=== PATIENT | female | born 1975 | race African-American/Black ===

== ENCOUNTER 2018-05-22 17:04 | Inpatient (IN) | payer OTHER ==
[2018-05-22] VITALS: BP 124/90
[~2018-05-22] VITALS: Ht 160 cm; Wt 505.3 kg
[2018-05-22 20:00] VITALS: BP 133/99
[2018-05-22] MEDS ORDERED: ERGO500040 PO (21:06)
[2018-05-22] MEDS ORDERED: POTA-88 PO (21:06)
[2018-05-22] MEDS ORDERED: FOLI1TAB16 PO (21:06)
[2018-05-22] MEDS ORDERED: METO-295 PO (21:06)
[2018-05-22] MEDS ORDERED: HYDR4TAB57 PO (21:06)
[2018-05-22] MEDS ORDERED: LEVE500T9 PO (21:06)
[2018-05-22] MEDS ORDERED: MORP15TA PO (21:20)
[2018-05-22] MEDS ORDERED: Z GUARD REMEDY 2 OZ OINT TP PRN (21:30)
[2018-05-22] MEDS ORDERED: HYDROMORPHONE HCL 4 MG PO PRN (21:30)
[2018-05-22] MEDS ORDERED: MAGNESIUM HYDROXIDE 30 ML UDC PO PRN (21:30)
[2018-05-22] MEDS ORDERED: MAG HYDROX/AL HYDROX/SIMETH 30 ML UDC PO PRN (21:30)
--- NOTE | 2018-05-22 21:30 | NUR ---
THERMODYNAMICS PROFESSOR NOTES RECEIVED PT ON STRETCHER FROM EMT. PT AMBULATORY. ON NASAL CANNULA 2LPM SATURATING GOOD NO RESPIRATORY DISTRESS NOTED. ON TELE MONITOR SR. IV ACCESS SEJAL CATH LEFT CHEST WALL, PATENT AND INTACT. REFUSED SKIN ASSESSMENT. H/P ASSESSMENT DONE. HEAD OF BED ELEVATED. SIDE RAILS UP. CALL LIGHT WITHIN REACH. BED ALARM ON. WILL CONTINUE TO MONITOR PT CLOSELY.
[2018-05-22] MEDS: HYDROCODONE/APAP 5/325MG 1 EACH TABLET PO PRN (22:08)
[2018-05-22 22:50] LABS: BASOPHILS # (AUTO) 0.1 /CMM (0.0-0.2); BASOPHILS % (AUTO) 0.9 % (0.0-2.0); EOSINOPHILS % (AUTO) 1.5 % (0.0-6.0); HEMATOCRIT 33 % (33-45); HEMOGLOBIN 10.9 g/dL (11.5-14.8); LYMPHOCYTES # (AUTO) 0.8 /CMM (0.8-4.8); LYMPHOCYTES % (AUTO) 8.9 % (20.0-44.0); MEAN CORPUSCULAR HGB CONC 33 g/dl (31.0-36.0); MEAN CORPUSCULAR VOLUME 84 fL (82-100); MONOCYTES # (AUTO) 0.7 /CMM (0.1-1.30); MONOCYTES % (AUTO) 7.3 % (2.0-12.0); NEUTROPHILS # (AUTO) 7.3 /CMM (1.8-8.9); NEUTROPHILS % (AUTO) 81.4 % (43.0-81.0); PLATELET COUNT (AUTO) 454 /CMM (150-450); RED BLOOD CELL COUNT(AUTO) 3.95 MIL/uL (4.0-5.2)
[2018-05-22] MEDS ORDERED: Medication Not On Formulary EA (Levetiracetam (Keppra) 750 MG) PO SCH (23:00)
[2018-05-22] MEDS: LEVETIRACETAM (250 MG) 250 MG TABLET PO SCH (23:05)
[2018-05-22] MEDS ORDERED: LEVOFLOXACIN 750 MG /D5W 150ML 150 ML IV ONE (23:06)
[2018-05-22] MEDS: HYDROMORPHONE 1 MG/1 ML DISP.SYRIN IV PRN (23:07)
[2018-05-22 23:19] LABS: ALBUMIN 2.7 g/dL (3.4-5.0); BILIRUBIN,TOTAL 0.2 mg/dL (0.2-1.0); CALCIUM, SERUM 8.8 mg/dL (8.5-10.1); CREATININE 0.7 mg/dL (0.6-1.3); MAGNESIUM 1.6 mg/dL (1.8-2.4); PHOSPHORUS 3.3 mg/dL (2.5-4.9); POTASSIUM 3.8 mmol/L (3.5-5.1)
[2018-05-22 23:21] LABS: THYROID STIMULATING HORMONE 1.079 uIU/mL (0.358-3.74)
[2018-05-22] MEDS ORDERED: LEVOFLOXACIN 750 MG /D5W 150ML 750 MG in PREMIX 1 EA IV ONE (23:30)
[2018-05-23] VITALS (7 sets, daily range): BP systolic 91–124; BP diastolic 57–90
[2018-05-23] MEDS: HYDROMORPHONE 1 MG/1 ML DISP.SYRIN IV PRN ×4 (02:08→11:21)
--- NOTE | 2018-05-23 04:20 | NUR ---
COATING MACHINE HELPER NOTES PT REFUSES PNA AND FLUE VACCINE OF NOW. PER PT SHE WANTS TO TALK TO THE DRAntonia REGARDING SIDE EFFECTS AND BENEFITS SINCE SHE IS A CANCER PT. WILL F/U WITH THE
--- NOTE | 2018-05-23 06:40 | NUR ---
HORTICULTURAL THERAPIST NOTES NO ACUTE CHANGES NOTED DURING THE SHIFT. PROVIDED COMFORT AND SAFETY. DUE MEDS GIVEN. WILL ENDORSE TO THE AM NURSE FOR CONTINUITY OF CARE.
[2018-05-23 07:01] LABS: APPEARANCE,URINE CLEAR (CLEAR); BILIRUBIN,URINE NEGATIVE (NEGATIVE); BLOOD, URINE TRACE Ery/uL (NEGATIVE); COLOR,URINE YELLOW (YELLOW); KETONES,URINE TRACE (NEGATIVE); LEUKOCYTE ESTERASE ,URINE NEGATIVE (NEGATIVE); NITRITE, URINE NEGATIVE (NEGATIVE); PROTEIN,URINE 1+ mg/dl (NEGATIVE); UGLUCOSE NEGATIVE (NEGATIVE); UROBILINOGEN,URINE 0.2 EU/dL (0.2)
[2018-05-23 07:10] LABS: BACTERIA,URINE Rare /HPF (None Seen); SQUAMOUS EPITHELIAL CELL,UR Few /HPF (None Seen); WBC,URINE 0-2 /HPF (0-3)
[2018-05-23 07:28] LABS: BASOPHILS % (AUTO) 0.6 % (0.0-2.0); HEMATOCRIT 33 % (33-45); HEMOGLOBIN 10.9 g/dL (11.5-14.8); LYMPHOCYTES # (AUTO) 0.8 /CMM (0.8-4.8); LYMPHOCYTES % (AUTO) 10.4 % (20.0-44.0); MEAN CORPUSCULAR HGB CONC 33 g/dl (31.0-36.0); MEAN CORPUSCULAR VOLUME 83 fL (82-100); MONOCYTES # (AUTO) 0.8 /CMM (0.1-1.30); MONOCYTES % (AUTO) 10.1 % (2.0-12.0); NEUTROPHILS % (AUTO) 76.9 % (43.0-81.0); PLATELET COUNT (AUTO) 461 /CMM (150-450); RED BLOOD CELL COUNT(AUTO) 4.02 MIL/uL (4.0-5.2); WHITE BLOOD COUNT (AUTO) 7.8 K/uL (4.3-11.0)
[2018-05-23 07:46] LABS: CALCIUM, SERUM 8.8 mg/dL (8.5-10.1); CREATININE 0.6 mg/dL (0.6-1.3); POTASSIUM 3.8 mmol/L (3.5-5.1)
[2018-05-23] MEDS: PANTOPRAZOLE 40 MG VIAL IV SCH (08:18)
[2018-05-23] MEDS: LEVETIRACETAM (250 MG) 250 MG TABLET PO SCH ×2 (08:19→17:00)
[2018-05-23] MEDS: FOLIC ACID 1 MG TABLET PO SCH (08:19)
[2018-05-23] MEDS: METOCLOPRAMIDE HCL 10 MG TABLET PO SCH ×3 (08:19→17:00)
[2018-05-23] MEDS: MORPHINE SULFATE IR 15 MG TABLET PO SCH ×2 (08:19→17:01)
[2018-05-23] MEDS ORDERED: Medication Not On Formulary EA (Levetiracetam (Keppra) 750 MG) PO SCH (09:00)
--- NOTE | 2018-05-23 13:49 | NUR ---
U/S GUIDED THORACENTESIS TO BE DONE ON FRI., 05/25/2018. TOUR DRIVER RADIOLOGIST DR. RUCKER WAS CONTACTED REGARDING PROCEDURE AND MICHAEL FLORES TALKED TO ORDERING PHYSICIAN WHO MENTIONED IT WAS OK TO BE DONE THEN. PATIENT IS IN NO DISTRESS.
[2018-05-23] MEDS: ONDANSETRON HCL/PF 4 MG/2 ML VIAL IVP PRN ×2 (14:16→22:18)
[2018-05-23] MEDS: HYDROMORPHONE INJ 2 MG/ML DISP.SYRIN IV PRN ×4 (14:17→23:17)
--- NOTE | 2018-05-23 19:10 | NUR ---
GROOMING ASSISTANT OPENING NOTES PATIENT RECEIVED IN BED, WATCHING TV. ALERT, ORIENTED X 4. BREATHING EVEN AND UNLABORED. ON O2 AT 2LPM VIA NC. PATIENT ABLE TO VERBALIZE NEEDS. ON TELE MONITOR, SINUS RHYTHM 85. SAFETY MEASURES IN PLACE; CALL PARRA WITHIN REACH, BED IN LOW, LOCKED POSITION. PATIENT STABLE ENDORSED BY THE MORNING RN. WILL CONTINUE TO MONITOR ACCORDINGLY
--- NOTE | 2018-05-23 20:00 | NUR ---
RECEPTION MANAGER NOTES PATIENT TRANSFERRED TO ROOM 108
--- NOTE | 2018-05-23 20:20 | NUR ---
SPREADER BOX OPERATOR NOTES PATIENT C/O PAIN IN CHEST AND BACK, 12/12. DILAUDID 1MG GIVEN ORDERED. PATIENT STATED DILAUDID IS WHAT HELPS HER BEST WITH THE PAIN. DILAUDID WASTED WITH ANOTHER RN
[2018-05-23] MEDS: LEVOFLOXACIN 750 MG /D5W 150ML 750 MG in PREMIX 1 EA IV SCH (20:47)
--- NOTE | 2018-05-23 22:20 | NUR ---
television audio engineer notes Patient c/o nausea. Zofran 4mg given as ordered
--- NOTE | 2018-05-23 23:20 | NUR ---
DITCHER NOTES PATIENT C/O PAIN ON BACK AND CHEST, NON- RADIATING, 12/12. DILAUDID 1MG GIVEN ORDERED; 0.5ML WASTED WITH ANOTHER RN
[2018-05-24] VITALS: BP 95/62
[2018-05-24] MEDS: diphenhydrAMINE HCL 25 MG CAPSULE PO PRN ×5 (00:26→20:24)
--- NOTE | 2018-05-24 00:28 | NUR ---
BI ARCHITECT NOTES PATIENT C/O OF ITCHINESS ON AREAS WHERE LEADS OF TELE BOX AND TAPE ARE. STATED THAT SHE NOTICED THE ITCHING SINCE SHE CAME HERE BUT JUST THOUGHT THAT WHEN THE LEADS OR TAPE ARE CHANGED, IT WILL GO AWAY. NOW, SHE SAID THAT IT BOTHERS HER. ALSO STATED THAT IN ANOTHER HOSPITAL WHEN SHE WAS STARTING TO ITCH DUE TO THE IV TAPE, SHE'S HAD BENADRYL. TRE LARRY RADIO REPAIRMAN MADE AWARE. BENADRYL 25MG PO Q6H FOR ITCHINESS ORDERED- CARRIED OUT.
[2018-05-24] MEDS ORDERED: diphenhydrAMINE HCL ELIX 25 MG/10 ML UDC PO PRN ×2 (00:30→11:00)
[2018-05-24] MEDS: HYDROMORPHONE INJ 2 MG/ML DISP.SYRIN IV PRN ×7 (02:19→21:40)
--- NOTE | 2018-05-24 02:20 | NUR ---
BRAKE LINING CURER NOTES PATIENT C/O PAIN ON BACK AND CHEST, NON- RADIATING, 12/12. DILAUDID 1MG GIVEN ORDERED; 0.5ML WASTED WITH ANOTHER NURSE
[2018-05-24 04:00] VITALS: BP 94/61
--- NOTE | 2018-05-24 05:23 | NUR ---
CHILDREN TEACHER NOTES PATIENT C/O PAIN ON BACK AND CHEST, NON- RADIATING, 12/12. DILAUDID 1MG GIVEN ORDERED; 0.5ML WASTED WITH ANOTHER NURSE
--- NOTE | 2018-05-24 06:43 | NUR ---
NIB ADJUSTER CLOSING NOTES PATIENT IN BED, ALERT, ORIENTED X 4. BREATHING EVEN AND UNLABORED. NOT IN ANY DISTRESS. NO COMPLAINTS OF PAIN OR DISCOMFORT OF THIS TIME. TELE MONITOR IN PLACE, SINUS RHYTHM 96. ALL NEEDS ATTENDED TO. ALL DUE MEDICATIONS GIVEN ORDERED. CALL PARRA WITHIN REACH. BED IN LOW, LOCKED POSITION. WILL ENDORSE DESTINI TO ONCOMING NURSE
--- NOTE | 2018-05-24 07:30 | NUR ---
RN OPENING NOTE: RECEIVED PATIENT IN BED, AWAKE, ALERT AND ABLE TO MAKE HER NEEDS KNOWN. RESPIRATION EVEN AND UNLABORED SATURATING 99% WITH O2 2L/MIN VIA NC. PAIN WAS BEING MANAGED WITH DILAUDID IV AND MORPHINE IR PER MD ORDER. ON LOAN DOCUMENTS CLOSER SR HR 78. (L) CHEST WALL NOTED WITH PORT-A-CATH WITH DRY DRESSING. HOB ELEVATED. SEATED UPRIGHT ON THE BED. BED LOCKED AT ALL TIMES AND ON LOWEST POSITION. CALL LIGHT WITHIN REACH. NEEDS ANTICIPATED.
[2018-05-24 08:00] VITALS: BP 91/65
[2018-05-24 08:01] LABS: BASOPHILS % (AUTO) 0.5 % (0.0-2.0); EOSINOPHILS % (AUTO) 1.7 % (0.0-6.0); HEMATOCRIT 32 % (33-45); HEMOGLOBIN 10.4 g/dL (11.5-14.8); LYMPHOCYTES # (AUTO) 1.1 /CMM (0.8-4.8); MEAN CORPUSCULAR HGB CONC 33 g/dl (31.0-36.0); MEAN CORPUSCULAR VOLUME 84 fL (82-100); MONOCYTES # (AUTO) 0.8 /CMM (0.1-1.30); MONOCYTES % (AUTO) 9.3 % (2.0-12.0); NEUTROPHILS # (AUTO) 6.6 /CMM (1.8-8.9); NEUTROPHILS % (AUTO) 75.5 % (43.0-81.0); PLATELET COUNT (AUTO) 483 /CMM (150-450); RED BLOOD CELL COUNT(AUTO) 3.77 MIL/uL (4.0-5.2); WHITE BLOOD COUNT (AUTO) 8.8 K/uL (4.3-11.0)
[2018-05-24] MEDS: LEVETIRACETAM (250 MG) 250 MG TABLET PO SCH ×2 (08:08→16:15)
[2018-05-24] MEDS: PANTOPRAZOLE 40 MG VIAL IV SCH (08:08)
[2018-05-24] MEDS: FOLIC ACID 1 MG TABLET PO SCH (08:08)
[2018-05-24] MEDS: METOCLOPRAMIDE HCL 10 MG TABLET PO SCH ×3 (08:08→16:15)
[2018-05-24 08:09] LABS: CALCIUM, SERUM 8.8 mg/dL (8.5-10.1); CREATININE 0.8 mg/dL (0.6-1.3); POTASSIUM 3.7 mmol/L (3.5-5.1)
[2018-05-24] MEDS: MORPHINE SULFATE IR 15 MG TABLET PO SCH ×2 (08:14→17:02)
[2018-05-24 08:33] LABS: THYROID STIMULATING HORMONE 2.62 uIU/mL (0.358-3.74)
--- NOTE | 2018-05-24 08:52 | NUR ---
TEL Nurse , c/o itching , patient requsted to increased to benadry 50mg q6hrs instead of 25mg left message to re; above waiting for returning call back
[2018-05-24 12:00] VITALS: BP 106/66
[2018-05-24 16:00] VITALS: BP 96/56
[2018-05-24] MEDS: FERROUS SULFATE (325 MG) 325 MG/TAB TABLET PO SCH (16:15)
[2018-05-24] MEDS: ONDANSETRON HCL/PF 4 MG/2 ML VIAL IVP PRN (16:21)
[2018-05-24] MEDS ORDERED: predniSONE 20 MG TABLET ONE (16:22)
[2018-05-24] MEDS ORDERED: IPRATROPIUM NEB FS 0.5 MG/2.5 ML AMPUL.NEB ONE (16:22)
[2018-05-24] MEDS ORDERED: ALBUTEROL FS 2.5 MG/3 ML VIAL.NEB ONE (16:22)
--- NOTE | 2018-05-24 19:55 | NUR ---
RN CLOSING NOTE: PATIENT ON STABLE CONDITION AND PAIN WAS WELL MANAGED WITH HER CURRENT PAIN MEDICATIONS. BEDSIDE REPORT GIVEN TO PM SHIFT NURSE FOR CONTINUITY OF CARE.
[2018-05-24 20:00] VITALS: BP 98/57
--- NOTE | 2018-05-24 20:00 | NUR ---
FLEET DIRECTOR INITIAL NOTES PATIENT IN BED, ALERT, ORIENTED X 4, BREATHING EVEN AND UNLABORED NO SOB/ACUTE DISTRESS NOTED ON 2LPM VIA NC SATURATING WELL, NO COMPLAINTS OF PAIN OR DISCOMFORT OF THIS TIME, TELE MONITOR IN PLACE, SINUS RHYTHM 90S, LCW PERM CATH PATENT AND INTACT, ALL NEEDS ATTENDED, CALL PARRA WITHIN REACH, BED IN LOW AND LOCKED POSITION, WILL CONTINUE TO MONITOR CLOSELY
[2018-05-24] MEDS: LEVOFLOXACIN 750 MG /D5W 150ML 750 MG in PREMIX 1 EA IV SCH (20:25)
--- NOTE | 2018-05-24 20:30 | NUR ---
MANAGER MONITORING NOTES, PATIENT C/O ITCHING NOT RELIVED BY BENADRYL 25MG, PAGED KENDY REED EARLY LEARNING TEACHER AT THIS TIME, AWAITING FOR CALL BACK.
--- NOTE | 2018-05-24 20:55 | NUR ---
2054 BRIANNA LARRY CALLED BACK AND NOTIFIED HIM OF PATIENT'S C/O ITCHING NOT RELIEVED BY BENADRYL WITH ORDER TO GIVE ANOTHER DOSE OF 25MG OF BENADRYL NOW. ORDER NOTED AND CARRIED OUT.
[2018-05-24] MEDS ORDERED: diphenhydrAMINE HCL 25 MG CAPSULE PO ONE (21:00)
[2018-05-25] VITALS (7 sets, daily range): BP systolic 95–135; BP diastolic 57–76
[2018-05-25] MEDS: HYDROMORPHONE INJ 2 MG/ML DISP.SYRIN IV PRN ×8 (00:39→22:24)
[2018-05-25] MEDS: diphenhydrAMINE HCL 25 MG CAPSULE PO PRN ×2 (02:48→07:01)
[2018-05-25] MEDS: ONDANSETRON HCL/PF 4 MG/2 ML VIAL IVP PRN (05:53)
--- NOTE | 2018-05-25 06:30 | NUR ---
BEER COIL CLEANER CLOSING NOTES, PATIENT IN BED, SLEEPING AT THIS TIME, BREATHING EVEN AND UNLABORED NO SOB/ACUTE DISTRESS NOTED ON 2LPM VIA NC SATURATING WELL, TELE MONITOR IN PLACE, LCW PERM CATH PATENT AND INTACT, ALL NEEDS ATTENDED, CALL PARRA WITHIN REACH, BED IN LOW AND LOCKED POSITION, NO SIGNIFICANT CHANGE IN CONDITION THROUGHOUT THE NIGHT, ON PAIN MANAGEMENT, WILL ENDORSE CONTINUITY OF CARE TO ONCOMING NURSE.
--- NOTE | 2018-05-25 07:45 | NUR ---
RN OPENING NOTE: RECEIVED PATIENT IN BED, AWAKE, ALERT AND ABLE TO MAKE HER NEEDS KNOWN. RESPIRATION EVEN AND UNLABORED SATURATING 96% WITH O2 2L/MIN VIA NC. PAIN WAS BEING MANAGED WITH DILAUDID IV AND MORPHINE IR PER MD ORDER. ON YARD CRANE OPERATOR ST HR 101. (L) CHEST WALL NOTED WITH PORT-A-CATH WITH DRY DRESSING. HOB ELEVATED. PATIENT WAS SLIGHTLY LEANING ON THE (L) SIDE OF THE BED. BED LOCKED AT ALL TIMES AND ON LOWEST POSITION. CALL LIGHT WITHIN REACH. NEEDS ANTICIPATED. REMINDED PATIENT ABOUT THE THORACENTESIS PROCEDURE THAT WILL BE DONE ANYTIME TODAY. PATIENT UNDERSTOOD.
[2018-05-25 08:16] LABS: BASOPHILS # (AUTO) 0.1 /CMM (0.0-0.2); BASOPHILS % (AUTO) 0.6 % (0.0-2.0); EOSINOPHILS % (AUTO) 1.5 % (0.0-6.0); HEMATOCRIT 32 % (33-45); HEMOGLOBIN 10.3 g/dL (11.5-14.8); LYMPHOCYTES # (AUTO) 0.7 /CMM (0.8-4.8); LYMPHOCYTES % (AUTO) 5.9 % (20.0-44.0); MEAN CORPUSCULAR HGB CONC 33 g/dl (31.0-36.0); MEAN CORPUSCULAR VOLUME 83 fL (82-100); MONOCYTES # (AUTO) 0.9 /CMM (0.1-1.30); MONOCYTES % (AUTO) 8.2 % (2.0-12.0); NEUTROPHILS # (AUTO) 9.7 /CMM (1.8-8.9); NEUTROPHILS % (AUTO) 83.8 % (43.0-81.0); PLATELET COUNT (AUTO) 455 /CMM (150-450); RED BLOOD CELL COUNT(AUTO) 3.79 MIL/uL (4.0-5.2); WHITE BLOOD COUNT (AUTO) 11.5 K/uL (4.3-11.0)
[2018-05-25] MEDS: FERROUS SULFATE (325 MG) 325 MG/TAB TABLET PO SCH ×2 (08:20→16:05)
[2018-05-25] MEDS: LEVETIRACETAM (250 MG) 250 MG TABLET PO SCH ×2 (08:20→16:05)
[2018-05-25] MEDS: PANTOPRAZOLE 40 MG VIAL IV SCH (08:20)
[2018-05-25] MEDS: FOLIC ACID 1 MG TABLET PO SCH (08:20)
[2018-05-25] MEDS: METOCLOPRAMIDE HCL 10 MG TABLET PO SCH ×3 (08:21→16:06)
[2018-05-25] MEDS: MORPHINE SULFATE IR 15 MG TABLET PO SCH ×2 (08:21→17:24)
[2018-05-25 08:27] LABS: CALCIUM, SERUM 9.2 mg/dL (8.5-10.1); CREATININE 0.8 mg/dL (0.6-1.3); MAGNESIUM 1.5 mg/dL (1.8-2.4); POTASSIUM 3.7 mmol/L (3.5-5.1)
[2018-05-25] MEDS: Magnesium 1GM/D5W 100ML PREMIX 100 ML IV SCH ×3 (10:38→13:04)
[2018-05-25] MEDS: hydrOXYzine 10 MG TABLET PO SCH ×3 (10:39→16:05)
--- NOTE | 2018-05-25 11:23 | NUR ---
RN NOTE: PATIENT WAS DONE WITH HER (R) LUNG THORACENTESIS AND 1050 ML OF FLUID WAS TAKEN OUT. DR. BOWMAN AWARE. PER MD, NO NEED TO SEND SPECIMEN TO THE LAB. STAT CHEST X-RAY WAS ORDERED, NOTED AND CARRIED OUT. PATIENT MADE AWARE.
--- NOTE | 2018-05-25 11:24 | NUR ---
RN CLARIFICATION NOTE: FLUID REMOVED S/P THORACENTESIS ON THE (R) LUNG WAS 1030 ML.
--- NOTE | 2018-05-25 11:52 | NUR ---
RN NOTE: STAT CHEST X-RAY WAS DONE. AWAITING FOR THE RESULT.
--- NOTE | 2018-05-25 12:00 | NUR ---
RN NOTE: CHEST X-RAY RESULT S/P (R) LUNG THORACENTESIS WAS NORMAL. DR. BOWMAN WITH NO NEW ORDER. PATIENT VERBALIZED "I CAN FEEL THAT MY LUNGS ARE EXPANDING WELL NOW WHEN I TAKE A BREATH." PATIENT WAS INFORMED TO CALL THE NURSE ATTENTION IF SHE FEELS SOMETHING DIFFERENT. PATIENT AGREED AND UNDERSTOOD.
[2018-05-25] MEDS: ACETAMINOPHEN 325 MG TABLET PO PRN (15:31)
--- NOTE | 2018-05-25 19:40 | NUR ---
STORE MERCHANDISER INITIAL NOTES, PATIENT IN BED,USIGN RESTROOM AT THIS TIME, ALERT, ORIENTED X 4, BREATHING EVEN AND UNLABORED NO SOB/ACUTE DISTRESS NOTED ON 2LPM VIA NC SATURATING WELL, NO COMPLAINTS OF PAIN OR DISCOMFORT OF THIS TIME, S/P THORACENTESIS TODAY, ON TELE MONITOR IN PLACE, SINUS RHYTHM 90-100S, LCW PERM CATH PATENT AND INTACT, ALL NEEDS ATTENDED, CALL PARRA WITHIN REACH, BED IN LOW AND LOCKED POSITION, WILL CONTINUE TO MONITOR CLOSELY Addendum: 05/25/18 at 2015 by GAYLA BECKHAM RN PAIN MEDICATION DILAUDID IV ADMINISTERED 8MIN AGO, ORDERED. ON PAIN MANAGEMENT, ALL NEEDS PROVIDED AND PROMPTLY ATTENDED.
--- NOTE | 2018-05-25 19:42 | NUR ---
RN CLOSING NOTE: PATIENT ON STABLE CONDITION AND PAIN WAS WELL MANAGED WITH HER CURRENT PAIN MEDICATIONS AND ITCHINESS WAS RELIEVED BY ATARAX MD ORDER. BEDSIDE REPORT GIVEN TO PM SHIFT NURSE FOR CONTINUITY OF CARE. NO SEIZURE EPISODE NOTED WITHIN THE DAY.
[2018-05-25] MEDS: LEVOFLOXACIN 750 MG /D5W 150ML 750 MG in PREMIX 1 EA IV SCH (20:54)
--- NOTE | 2018-05-25 22:40 | NUR ---
MOTOR COACH SUPERVISOR NOTES, CALLED MD TIMBER MANAGEMENT ASSISTANT KENDY TO INFORMED THAT PER PATIENT DILAUDID 1MG IV Q3H PRN ID NOT ENOUGH FOR THE PAIN, AND SHE DOESN'T LIKE TO TAKE NORCO FOR ASE CAUSES TO HER, AWAITING FRO CALL BACK.
--- NOTE | 2018-05-25 22:55 | NUR ---
PAYABLE MANAGER NOTES, KENDY JUMP IRON MACHINE PRESSER REPLIED WITH NEW ORDER TO INCREASE DILAUDID IV TO 1.5MG Q3HRS PRN FOR SEVERE PAIN, NOTED AND CARRIED OUT.
[2018-05-26] VITALS (8 sets, daily range): BP systolic 94–110; BP diastolic 57–71
[2018-05-26] MEDS: HYDROMORPHONE INJ 2 MG/ML DISP.SYRIN IV PRN ×8 (01:35→22:53)
[2018-05-26 06:02] LABS: CALCIUM, SERUM 8.7 mg/dL (8.5-10.1); CREATININE 0.7 mg/dL (0.6-1.3); MAGNESIUM 2.1 mg/dL (1.8-2.4); POTASSIUM 3.8 mmol/L (3.5-5.1)
[2018-05-26 06:34] LABS: BASOPHILS % (AUTO) 0.4 % (0.0-2.0); EOSINOPHILS % (AUTO) 1.1 % (0.0-6.0); HEMATOCRIT 31 % (33-45); HEMOGLOBIN 10.1 g/dL (11.5-14.8); LYMPHOCYTES # (AUTO) 0.8 /CMM (0.8-4.8); LYMPHOCYTES % (AUTO) 7.2 % (20.0-44.0); MEAN CORPUSCULAR HGB CONC 33 g/dl (31.0-36.0); MEAN CORPUSCULAR VOLUME 84 fL (82-100); MONOCYTES # (AUTO) 0.9 /CMM (0.1-1.30); MONOCYTES % (AUTO) 7.4 % (2.0-12.0); NEUTROPHILS # (AUTO) 9.8 /CMM (1.8-8.9); NEUTROPHILS % (AUTO) 83.9 % (43.0-81.0); PLATELET COUNT (AUTO) 485 /CMM (150-450); RED BLOOD CELL COUNT(AUTO) 3.68 MIL/uL (4.0-5.2); WHITE BLOOD COUNT (AUTO) 11.7 K/uL (4.3-11.0)
--- NOTE | 2018-05-26 06:48 | NUR ---
PROJECT DESIGNER CLOSING NOTES, PATIENT IN BED,SLEEPING AT THIS TIME, BUT AROUSES EASILY TO VERBAL STIMULI, BREATHING EVEN AND UNLABORED NO SOB/ACUTE DISTRESS NOTED ON 2LPM VIA NC SATURATING WELL,ON PAIN MANAGEMENT DILAUDID ADMINISTERED Q3HRS, ON TELE MONITOR IN PLACE, SINUS RHYTHM 90-100S, LCW PERM CATH PATENT AND INTACT, ALL NEEDS ATTENDED, STABLE DURING THE NIGHT, CALL LIGHT WITHIN REACH, BED IN LOW AND LOCKED POSITION, WILL ENDORSE CONTINUITY OF CARE TO ONCOMING NURSE.
--- NOTE | 2018-05-26 07:30 | NUR ---
PAPER BAGS SEWING MACHINE OPERATOR NOTES RECEIVED PATIENT AWAKE IN BED C/O PAIN 02/11. LAST DILAUDID GIVEN WAS @ 0430 ADMINISTERED 1.5ML DILAUDID. EDUCATED PATIENT ON PAIN CONTROL. PATIENT A/O X3 NO SIGNS OR SYMPTOMS OF RESPIRATORY DISTRESS NOTED. S/P THORACENTESIS 05/25. SKIN INTACT NO IVF RUNNING AT THIS TIME. PATIENT HAS PORT A CATH FOR ACCESS FLUSHING WELL. PAIN CONTROL IS GOAL FOR DAY SAFETY PRECAUTIONS I PLACE BED IN LOW POSITION CALL LIGHT WITHIN REACH WILL CONT TO MONITOR
[2018-05-26] MEDS: MORPHINE SULFATE IR 15 MG TABLET PO SCH ×2 (08:16→17:39)
[2018-05-26] MEDS: hydrOXYzine 10 MG TABLET PO SCH ×3 (08:16→17:36)
[2018-05-26] MEDS: FERROUS SULFATE (325 MG) 325 MG/TAB TABLET PO SCH ×2 (08:16→17:36)
[2018-05-26] MEDS: FOLIC ACID 1 MG TABLET PO SCH (08:16)
[2018-05-26] MEDS: PANTOPRAZOLE 40 MG VIAL IV SCH (08:17)
[2018-05-26] MEDS: LEVETIRACETAM (250 MG) 250 MG TABLET PO SCH ×2 (08:17→17:36)
[2018-05-26] MEDS: ACETAMINOPHEN 325 MG TABLET PO PRN ×2 (08:17→19:54)
[2018-05-26] MEDS: METOCLOPRAMIDE HCL 10 MG TABLET PO SCH ×3 (08:17→17:36)
--- NOTE | 2018-05-26 11:16 | NUR ---
CHARGE NOTES TRANSFER TO MED SURG PER DR. MIRANDA
[2018-05-26] MEDS: HYDROCODONE/APAP 5/325MG 1 EACH TABLET PO PRN ×3 (11:54→21:25)
[2018-05-26] MEDS: ENSURE ENLIVE 237 ML LIQUID (VANILLA) PO SCH ×2 (13:51→17:37)
[2018-05-26] MEDS: ONDANSETRON HCL/PF 4 MG/2 ML VIAL IVP PRN ×2 (18:35→19:13)
--- NOTE | 2018-05-26 19:20 | NUR ---
PAYER SPECIALIST INITIAL NOTES, PATIENT IN BED, ALERT, ORIENTED X 4, BREATHING EVEN AND UNLABORED NO SOB/ACUTE DISTRESS NOTED ON 2LPM VIA NC SATURATING WELL, NO COMPLAINTS OF PAIN OR DISCOMFORT OF THIS TIME, LCW PERM CATH PATENT AND INTACT, ALL NEEDS ATTENDED, CALL PARRA WITHIN REACH, BED IN LOW AND LOCKED POSITION, WILL CONTINUE TO MONITOR CLOSELY
--- NOTE | 2018-05-26 19:23 | NUR ---
RN ms notes RECEIVED PATIENT AWAKE IN BED C/O PAIN 02/11 CHRONIC PAIN ALTERNATED NORCO AND DILAUDID THROUGHOUT THE DAY. C/O SOB INCREASED O2 TO 3LTS AND TOLERATING WELL. GAVE EXTENDED O2 TUNING FOR BRP. PATIENT A/O X3 S/P THORACENTESIS 05/25. SKIN INTACT NO IVF RUNNING AT THIS TIME. PATIENT HAS PORT A CATH FOR ACCESS FLUSHING WELL. PAIN CONTROL IS GOAL FOR DAY SAFETY PRECAUTIONS I PLACE BED IN LOW POSITION CALL LIGHT WITHIN REACH WILL ENDORSE TO NOC
[2018-05-26] MEDS: LEVOFLOXACIN 750 MG /D5W 150ML 750 MG in PREMIX 1 EA IV SCH (21:05)
--- NOTE | 2018-05-27 01:30 | NUR ---
RN MS NOTES, INFORMED SHIRA FOX REAR ADMIRAL THAT PATIENT IS COMPLAINING OF SOB, NO ACUTE DISTRESS NOTED, YET PATIENT NOTED WITH WHEEZING, AND DOMINIQUE REPLIED WITH NEW ORDER FOR ALBUTEROL AND ATROVENT Q4HRS PRN FOR SOB/WHEEZING, NOTED AN CARRIED OUT, PATIENT INFORMED, AND RT AWARE.
[2018-05-27] MEDS ORDERED: ALBUTEROL FS 2.5 MG/3 ML VIAL.NEB ONE (01:48)
[2018-05-27] MEDS ORDERED: IPRATROPIUM NEB FS 0.5 MG/2.5 ML AMPUL.NEB ONE (01:48)
[2018-05-27] MEDS: IPRATROPIUM NEB FS 0.5 MG/2.5 ML AMPUL.NEB NEB PRN ×3 (01:50→15:03)
[2018-05-27] MEDS: ALBUTEROL FS 2.5 MG/3 ML VIAL.NEB NEB PRN ×2 (01:50→09:19)
[2018-05-27] MEDS: HYDROMORPHONE INJ 2 MG/ML DISP.SYRIN IV PRN ×8 (02:02→23:36)
[2018-05-27] MEDS: HYDROCODONE/APAP 5/325MG 1 EACH TABLET PO PRN ×6 (03:28→22:55)
[2018-05-27 04:00] VITALS: BP 100/57
[2018-05-27 05:24] VITALS: BP 100/57
--- NOTE | 2018-05-27 06:57 | NUR ---
FARMER VEGETABLE CLOSING NOTES, PATIENT IN BED, SLEEPING BUT EASILY AROUSABLE TO VERBAL STIMULI BREATHING EVEN AND UNLABORED NO SOB/ACUTE DISTRESS NOTED ON 2LPM VIA NC SATURATING WELL,ON PAIN MANAGEMENT, C/O SOB DURING THE NIGHT AND NEW ORDERS FOR BREATHING TX, LCW PERM CATH PATENT AND INTACT, ALL NEEDS ATTENDED, CALL PARRA WITHIN REACH, BED IN LOW AND LOCKED POSITION, WILL ENDORSE CONTINUITY OF CARE TO ONCOMING NURSE.
[2018-05-27 08:00] VITALS: BP 95/60
[2018-05-27] MEDS: FOLIC ACID 1 MG TABLET PO SCH (08:16)
[2018-05-27] MEDS: hydrOXYzine 10 MG TABLET PO SCH ×3 (08:17→16:06)
[2018-05-27] MEDS: FERROUS SULFATE (325 MG) 325 MG/TAB TABLET PO SCH ×2 (08:17→16:06)
[2018-05-27] MEDS: METOCLOPRAMIDE HCL 10 MG TABLET PO SCH ×3 (08:17→16:06)
[2018-05-27] MEDS: PANTOPRAZOLE 40 MG VIAL IV SCH (08:18)
[2018-05-27] MEDS: ENSURE ENLIVE 237 ML LIQUID (VANILLA) PO SCH ×2 (08:19→17:37)
[2018-05-27] MEDS: LEVETIRACETAM (250 MG) 250 MG TABLET PO SCH ×2 (08:30→16:05)
[2018-05-27] MEDS: MORPHINE SULFATE IR 15 MG TABLET PO SCH ×2 (08:30→16:05)
[2018-05-27 08:35] LABS: BASOPHILS # (AUTO) 0.1 /CMM (0.0-0.2); BASOPHILS % (AUTO) 0.4 % (0.0-2.0); EOSINOPHILS % (AUTO) 1.2 % (0.0-6.0); HEMATOCRIT 32 % (33-45); HEMOGLOBIN 10.2 g/dL (11.5-14.8); LYMPHOCYTES # (AUTO) 0.8 /CMM (0.8-4.8); LYMPHOCYTES % (AUTO) 5.3 % (20.0-44.0); MEAN CORPUSCULAR HGB CONC 32 g/dl (31.0-36.0); MEAN CORPUSCULAR VOLUME 84 fL (82-100); MONOCYTES # (AUTO) 0.8 /CMM (0.1-1.30); MONOCYTES % (AUTO) 5.2 % (2.0-12.0); NEUTROPHILS % (AUTO) 87.9 % (43.0-81.0); PLATELET COUNT (AUTO) 454 /CMM (150-450); RED BLOOD CELL COUNT(AUTO) 3.81 MIL/uL (4.0-5.2); WHITE BLOOD COUNT (AUTO) 14.9 K/uL (4.3-11.0)
[2018-05-27] MEDS: ERGOCALCIFEROL (VITAMIN D 2) 50,000 UNIT CAPSULE PO SCH (08:37)
[2018-05-27] MEDS ORDERED: ERGOCALCIFEROL (VITAMIN D 2) 50,000 UNIT CAPSULE PO SCH (09:00)
[2018-05-27 09:06] LABS: CALCIUM, SERUM 9.2 mg/dL (8.5-10.1); CREATININE 0.8 mg/dL (0.6-1.3); POTASSIUM 3.9 mmol/L (3.5-5.1)
[2018-05-27] MEDS: ONDANSETRON HCL/PF 4 MG/2 ML VIAL IVP PRN (10:05)
[2018-05-27] MEDS ORDERED: IPRATROPIUM NEB FS 0.5 MG/2.5 ML AMPUL.NEB NEB ONE (14:00)
[2018-05-27] MEDS: ALBUTEROL FS 2.5 MG/0.5 ML VIAL.NEB NEB SCH ×3 (15:03→23:19)
[2018-05-27 16:00] VITALS: BP 99/65
--- NOTE | 2018-05-27 19:30 | NUR ---
MS RN NOTE: RECEIVED PT ON BED ALERT AND ORIENTED X4. ABLE TO MAKE NEEDS KNOWN. NO ACUTE DISTRESS NOTED. COMPLAINED OF GENERALIZED PAIN, PRN PAIN MEDS WILL BE GIVEN. NO SOB NOTED AT THIS TIME. LEFT UPPER CHEST POST-A-CATH INTACT, FLUSHING WELL. KEPT CLEAN, DRY AND COMFORTABLE. CALL LIGHT PLACED WITHIN REACH. SIDE RAILS UP X2. BED LOCKED AND IN LOWEST POSITION. WILL CONTINUE TO MONITOR PT.
--- NOTE | 2018-05-27 19:30 | NUR ---
MS RN CLOSING NOTES, PATIENT IN BED; BREATHING EVEN AND UNLABORED NO SOB/ACUTE DISTRESS NOTED ON 2LPM VIA NC SATURATING WELL,ON PAIN MANAGEMENT, C/O SOB DURING THE NIGHT AND NEW ORDERS FOR BREATHING TX, LCW PERM CATH PATENT AND INTACT, ALL NEEDS ATTENDED, CALL PARRA WITHIN REACH, BED IN LOW AND LOCKED POSITION, WILL ENDORSE CONTINUITY OF CARE TO ONCOMING NURSE.
[2018-05-27 20:00] VITALS: BP 93/63
[2018-05-27] MEDS: LEVOFLOXACIN (500MG) 500 MG TABLET PO SCH (20:32)
[2018-05-27] MEDS: DOXYCYCLINE HYCLATE (100 MG) 100 MG TABLET PO SCH (20:32)
[2018-05-28] MEDS: HYDROCODONE/APAP 5/325MG 1 EACH TABLET PO PRN ×3 (00:52→18:53)
[2018-05-28] MEDS: HYDROMORPHONE INJ 2 MG/ML DISP.SYRIN IV PRN ×7 (02:37→21:00)
[2018-05-28] MEDS: ALBUTEROL FS 2.5 MG/0.5 ML VIAL.NEB NEB SCH ×6 (03:45→23:26)
[2018-05-28 04:00] VITALS: BP 97/56
[2018-05-28 06:34] LABS: BASOPHILS % (AUTO) 0.2 % (0.0-2.0); EOSINOPHILS % (AUTO) 1.3 % (0.0-6.0); HEMATOCRIT 30 % (33-45); HEMOGLOBIN 9.9 g/dL (11.5-14.8); LYMPHOCYTES % (AUTO) 7.1 % (20.0-44.0); MEAN CORPUSCULAR HGB CONC 33 g/dl (31.0-36.0); MEAN CORPUSCULAR VOLUME 83 fL (82-100); MONOCYTES # (AUTO) 0.9 /CMM (0.1-1.30); MONOCYTES % (AUTO) 6.9 % (2.0-12.0); NEUTROPHILS # (AUTO) 11.5 /CMM (1.8-8.9); NEUTROPHILS % (AUTO) 84.5 % (43.0-81.0); PLATELET COUNT (AUTO) 432 /CMM (150-450); RED BLOOD CELL COUNT(AUTO) 3.61 MIL/uL (4.0-5.2); WHITE BLOOD COUNT (AUTO) 13.6 K/uL (4.3-11.0)
[2018-05-28 06:47] LABS: CREATININE 0.7 mg/dL (0.6-1.3); POTASSIUM 3.6 mmol/L (3.5-5.1)
--- NOTE | 2018-05-28 07:03 | NUR ---
MS RN NOTE: NO CHANGES NOTED THROUGHOUT THE SHIFT. NO APPARENT DISTRESS NOTED. NO SOB NOTED. LEFT CHEST PORT-A-CATH INTACT AND PATENT. KEPT CLEAN, DRY AND COMFORTABLE. SAFETY AND FALL PRECAUTIONS OBSERVED AND MAINTAINED. CALL LIGHT WITHIN REACH. WILL ENDORSE TO DAY SHIFT RN FOR CONTINUITY OF CARE.
--- NOTE | 2018-05-28 07:05 | NUR ---
MS RN OPENING NOTES RECEIVED PT LYING ON BED.ALERT/ORIENTED X4.ON 3L O2 VIA NC CONTINUOUSLY.LEFT CHEST PORT A CATH IS PRESENT.SITE IS CLEAN,DRY AND INTACT.NO INFILTRATION NOTED.CAN AMBULATE WITH MINIMAL SUPERVISION.SAFETY IS MAINTAINED AT ALL TIMES.BED IS IN LOW POSITION AND LOCKED.CALL LIGHT IS WITHIN REACH.WILL CONTINUE TO MONITOR THE PT CLOSELY.
[2018-05-28 08:00] VITALS: BP 113/66
[2018-05-28] MEDS: ONDANSETRON HCL/PF 4 MG/2 ML VIAL IVP PRN ×2 (08:25→14:45)
[2018-05-28] MEDS: PANTOPRAZOLE 40 MG VIAL IV SCH (08:31)
[2018-05-28] MEDS: ENSURE ENLIVE 237 ML LIQUID (VANILLA) PO SCH ×2 (09:00→17:51)
[2018-05-28] MEDS: LEVETIRACETAM (250 MG) 250 MG TABLET PO SCH ×2 (09:45→16:29)
[2018-05-28] MEDS: FOLIC ACID 1 MG TABLET PO SCH (09:45)
[2018-05-28] MEDS: DOXYCYCLINE HYCLATE (100 MG) 100 MG TABLET PO SCH ×2 (09:45→20:59)
[2018-05-28] MEDS: METOCLOPRAMIDE HCL 10 MG TABLET PO SCH ×3 (09:45→16:30)
[2018-05-28] MEDS: FERROUS SULFATE (325 MG) 325 MG/TAB TABLET PO SCH ×2 (09:45→16:29)
[2018-05-28] MEDS: MORPHINE SULFATE IR 15 MG TABLET PO SCH ×2 (09:45→16:29)
[2018-05-28] MEDS: hydrOXYzine 10 MG TABLET PO SCH ×3 (09:45→16:30)
[2018-05-28] MEDS: ALBUTEROL FS 2.5 MG/3 ML VIAL.NEB NEB PRN (10:05)
[2018-05-28] MEDS: IPRATROPIUM NEB FS 0.5 MG/2.5 ML AMPUL.NEB NEB PRN (10:05)
[2018-05-28] MEDS: ACETAMINOPHEN 325 MG TABLET PO PRN (10:45)
[2018-05-28 16:00] VITALS: BP 99/54
--- NOTE | 2018-05-28 18:47 | NUR ---
MS RN CLOSING NOTES PT IS LYING ON BED.ALERT/ORIENTED X4.PAIN MEDS ARE GIVEN.NO PAIN NOTED FOR NOW,TOLERATING WELL ON 3L O2 VIA NC.NO SOB AND ACUTE DISTRESS NOTED.ENDORSED TO PUBLIC SAFETY DIRECTOR RN TO FOLLOW UP THE D/C PLAN AND DESTINI.
[2018-05-28 20:00] VITALS: BP 91/58
--- NOTE | 2018-05-28 20:00 | NUR ---
RN INITIAL NOTES RECEIVED PT SITTING ON BED. ALERT/ORIENTED X4. ON 3L O2 VIA NC CONTINUOUSLY. LEFT CHEST PORT A CATH IS PRESENT. SITE IS CLEAN,DRY AND INTACT. NO INFILTRATION NOTED. CAN AMBULATE WITH MINIMAL SUPERVISION. ALL SAFETY PRECAUTIONS TAKEN, SAFETY IS MAINTAINED AT ALL TIMES. BED IS IN LOW POSITION AND LOCKED. CALL LIGHT WITHIN REACH. WILL CONTINUE TO MONITOR THE PT CLOSELY.
[2018-05-28] MEDS: LEVOFLOXACIN (500MG) 500 MG TABLET PO SCH (20:59)
[2018-05-29] MEDS: HYDROMORPHONE INJ 2 MG/ML DISP.SYRIN IV PRN ×8 (03:07→21:32)
[2018-05-29] MEDS: ALBUTEROL FS 2.5 MG/0.5 ML VIAL.NEB NEB SCH ×6 (03:36→22:47)
[2018-05-29 04:00] VITALS: BP 97/64
[2018-05-29] MEDS: HYDROCODONE/APAP 5/325MG 1 EACH TABLET PO PRN ×2 (05:12→23:31)
[2018-05-29] MEDS: ONDANSETRON HCL/PF 4 MG/2 ML VIAL IVP PRN ×3 (06:15→18:28)
--- NOTE | 2018-05-29 07:00 | NUR ---
RN CLOSING NOTES PT IS LYING ON BED.ALERT/ORIENTED X4.PAIN MEDS ARE GIVEN.NO PAIN NOTED FOR NOW,TOLERATING WELL ON 3L O2 VIA NC.NO SOB AND ACUTE DISTRESS NOTED. WILL ENDORSED TO AM SHIFT.
[2018-05-29] MEDS: IPRATROPIUM NEB FS 0.5 MG/2.5 ML AMPUL.NEB NEB PRN (07:35)
--- NOTE | 2018-05-29 07:47 | NUR ---
MS RN OPENING NOTES RECEIVED PT IN BED WITH HOB KEPT ELEVATED. PT IS A/O X4, AFEBRILE. RESPIRATIONS ARE EVEN AND UNLABORED, NOT IN ANY ACUTE DISTRESS NOTED. NO FACIAL GRIMACING OR MOANING NOTED. LEFT CHEST PORT-A-CATH INTACT, NO INFILTRATION NOTED. DRESSING KEPT CLEAN AND DRY. SAFETY MEASURES ARE IN PLACE. WILL MONITOR THROUGHOUT SHIFT FOR CONTINUITY OF CARE.
[2018-05-29 08:00] VITALS: BP 101/62
[2018-05-29] MEDS: ENSURE ENLIVE 237 ML LIQUID (VANILLA) PO SCH ×2 (08:21→17:01)
[2018-05-29] MEDS: MORPHINE SULFATE IR 15 MG TABLET PO SCH ×2 (08:22→17:02)
[2018-05-29] MEDS: METOCLOPRAMIDE HCL 10 MG TABLET PO SCH ×3 (08:22→17:02)
[2018-05-29] MEDS: PANTOPRAZOLE 40 MG VIAL IV SCH (08:22)
[2018-05-29] MEDS: DOXYCYCLINE HYCLATE (100 MG) 100 MG TABLET PO SCH (08:22)
[2018-05-29] MEDS: FOLIC ACID 1 MG TABLET PO SCH (08:22)
[2018-05-29] MEDS: hydrOXYzine 10 MG TABLET PO SCH ×3 (08:23→17:02)
[2018-05-29] MEDS: LEVETIRACETAM (250 MG) 250 MG TABLET PO SCH ×2 (08:23→17:02)
[2018-05-29] MEDS: FERROUS SULFATE (325 MG) 325 MG/TAB TABLET PO SCH ×2 (08:23→17:02)
[2018-05-29 09:03] LABS: BASOPHILS % (AUTO) 0.3 % (0.0-2.0); EOSINOPHILS % (AUTO) 1.1 % (0.0-6.0); HEMATOCRIT 31 % (33-45); HEMOGLOBIN 9.9 g/dL (11.5-14.8); LYMPHOCYTES # (AUTO) 0.7 /CMM (0.8-4.8); LYMPHOCYTES % (AUTO) 4.6 % (20.0-44.0); MEAN CORPUSCULAR HGB CONC 32 g/dl (31.0-36.0); MEAN CORPUSCULAR VOLUME 83 fL (82-100); MONOCYTES # (AUTO) 0.8 /CMM (0.1-1.30); MONOCYTES % (AUTO) 5.7 % (2.0-12.0); NEUTROPHILS # (AUTO) 12.9 /CMM (1.8-8.9); NEUTROPHILS % (AUTO) 88.3 % (43.0-81.0); PLATELET COUNT (AUTO) 500 /CMM (150-450); RED BLOOD CELL COUNT(AUTO) 3.69 MIL/uL (4.0-5.2); WHITE BLOOD COUNT (AUTO) 14.6 K/uL (4.3-11.0)
[2018-05-29 09:44] LABS: CALCIUM, SERUM 9.2 mg/dL (8.5-10.1); CREATININE 0.7 mg/dL (0.6-1.3); POTASSIUM 3.8 mmol/L (3.5-5.1)
--- NOTE | 2018-05-29 13:00 | NUR ---
MS RN NOTES-- PT SEEN AND EXAMINED BY NEGRITO.
[2018-05-29] MEDS ORDERED: HEPARIN SODIUM, PORCINE 1000 UNIT/1 ML VIAL IV ONE (14:00)
[2018-05-29] MEDS ORDERED: ALBU8.5H8 INH (14:52)
[2018-05-29] MEDS ORDERED: ALBUT2 CONTNEB (14:52)
[2018-05-29] MEDS ORDERED: DOXY100C2 PO (14:52)
[2018-05-29] MEDS ORDERED: LEVO500T75 PO (14:52)
[2018-05-29] MEDS ORDERED: ONDA4TAB5 PO (14:55)
[2018-05-29] MEDS ORDERED: MORP15TA PO (14:55)
[2018-05-29] MEDS ORDERED: HYDR4TAB57 PO (14:55)
[2018-05-29] MEDS ORDERED: LEVE500T9 PO (14:55)
--- NOTE | 2018-05-29 15:30 | NUR ---
MS RODRIGUEZ NOTES-- PT NOTED WITH 102 TEMP. ADMINISTERED TYLENOL 650MG. WILL CONTINUE TO MONITOR. Addendum: 05/29/18 at 1654 by EMILI ALVARADO RN NEGRITO NOTIFIED. TYLENOL GIVEN.
[2018-05-29] MEDS: ACETAMINOPHEN 325 MG TABLET PO PRN (15:32)
[2018-05-29 16:00] VITALS: BP 112/74
--- NOTE | 2018-05-29 16:10 | NUR ---
MS RN NOTES-- RECEIVED ORDERS FOR HEPARIN PRIOR TO REMOVING PORT-A-CATH. CALLED PHARMACY, PER ANA, "HEPARIN ISNT ALLOWED FOR PORT-A-CATH PER PROTOCOL." NOTIFIED NEGRITO.
--- NOTE | 2018-05-29 16:11 | NUR ---
MS RN NOTES-- TEMP 100.7. TRANSPORTATION ARRIVED AND PUT ON WILL-CALL. NOTIFIED KIMBERLY MCELROY.
--- NOTE | 2018-05-29 16:30 | NUR ---
MS MICHAEL NOTES-- RECEIVED ORDERS PER NEGRITO TO GIVE NS 1L @75ML/HR AND TO MONITOR TEMP CLOSELY.
[2018-05-29] MEDS ORDERED: IV NS 0.9% 1,000 ML BAG IV PRN (16:50)
[2018-05-29] MEDS: IV NS 0.9% 1,000 ML IV PRN (17:01)
[2018-05-29] MEDS ORDERED: FEE PK DOSING 1 MIN EA MC ONE (17:56)
[2018-05-29] MEDS: MEROPENEM 1 G in IV NS 0.9% 100 ML IV SCH (18:38)
--- NOTE | 2018-05-29 18:47 | NUR ---
MS RN CLOSING NOTES ALL DUE MEDS GIVEN, NEEDS MET AND ANTICIPATED. PT REMAINS A/O X4, AFEBRILE. RESPIRATIONS ARE EVEN AND UNLABORED, NOT IN ANY ACUTE DISTRESS NOTED. PT DENIES ANY CHEST PAIN, N/V. CURRENTLY ON O2 @3L/MIN VIA NS, SATURATING AT96%. LEFT CHEST PORT-A-CATH REMAINS INTACT, DRESSING KEPT CLEAN AND DRY. BLOOD CULTURES DONE AND ABLE TO WITHDRAW BLOOD WITH NO RESISTANCE. PT MADE AWARE OF URINE COLLECTION FOR CULTURE. REMINDED PT TO USE CALL LIGHT WHEN ASSISTANCE IS NEEDED, CALL LIGHT IS LEFT WITHIN REACH. WILL ENDORSE TO NEXT SHIFT FOR CONTINUITY OF CARE.
[2018-05-29] MEDS: VANCOMYCIN 0.75 GM in IV D5W 250 ML IV SCH (20:04)
[2018-05-30] MEDS: HYDROMORPHONE INJ 2 MG/ML DISP.SYRIN IV PRN ×8 (00:36→21:38)
[2018-05-30] MEDS: ONDANSETRON HCL/PF 4 MG/2 ML VIAL IVP PRN ×5 (00:37→19:41)
[2018-05-30] MEDS: MEROPENEM 1 G in IV NS 0.9% 100 ML IV SCH ×3 (02:35→17:28)
[2018-05-30] MEDS: ALBUTEROL FS 2.5 MG/0.5 ML VIAL.NEB NEB SCH ×5 (03:27→19:36)
[2018-05-30 04:00] VITALS: BP 105/65
[2018-05-30] MEDS: VANCOMYCIN 0.75 GM in IV D5W 250 ML IV SCH ×3 (04:53→19:41)
[2018-05-30] MEDS: HYDROCODONE/APAP 5/325MG 1 EACH TABLET PO PRN ×2 (04:59→22:07)
--- NOTE | 2018-05-30 06:48 | NUR ---
RN CLOSING NOTES PT IS RESTING IN BED. ALL DUE MEDS GIVEN, NEEDS MET AND ANTICIPATED. PT REMAINS A/O X4, AFEBRILE. RESPIRATIONS ARE EVEN AND UNLABORED, NOT IN ANY ACUTE DISTRESS NOTED. PAIN MEDS GIVE Q3. CURRENTLY ON O2 @3L/MIN VIA NS, SATURATING AT96%. LEFT CHEST PORT-A-CATH REMAINS INTACT, DRESSING REENFORCED AND KEPT CLEAN AND DRY. BLOOD CULTURES DONE AND ABLE TO WITHDRAW BLOOD WITH NO RESISTANCE. URINE COLLECTION FOR CULTURE. CALL LIGHT IS LEFT WITHIN REACH. SAFETY MAINTAINED.ALL NEEDS ANTICIPATED AND MET. WILL ENDORSE TO NEXT SHIFT FOR CONTINUITY OF CARE.
--- NOTE | 2018-05-30 07:39 | NUR ---
INITIAL MS RN NOTE RCVD PT AWAKE AND ALERT, SHOWING NO S/O DISTRESS, TOLERATING O2 VIA NC. AMBULATORY WITH STEADY GAIT. PORT-A-CATH IN PLACE DRESSING C/D/I/PATENT. NO S/O INFILTRATION/PHLEBITIS OBSERVED UPON FLUSHING. IVF INFUSING ORDERED. WILL CONTINUE TO MONITOR PT FOR SAFETY AND COMFORT. BED IN LOW AND LOCKED POSITION. CALL LIGHT WITHIN REACH.
[2018-05-30 07:47] LABS: CALCIUM, SERUM 8.9 mg/dL (8.5-10.1); CREATININE 0.6 mg/dL (0.6-1.3); POTASSIUM 3.5 mmol/L (3.5-5.1)
[2018-05-30 08:00] VITALS: BP 99/64
[2018-05-30] MEDS: hydrOXYzine 10 MG TABLET PO SCH ×3 (08:28→16:29)
[2018-05-30] MEDS: LEVETIRACETAM (250 MG) 250 MG TABLET PO SCH ×2 (08:28→16:29)
[2018-05-30] MEDS: FERROUS SULFATE (325 MG) 325 MG/TAB TABLET PO SCH ×2 (08:28→16:29)
[2018-05-30] MEDS: FOLIC ACID 1 MG TABLET PO SCH (08:28)
[2018-05-30] MEDS: PANTOPRAZOLE 40 MG VIAL IV SCH (08:28)
[2018-05-30] MEDS: METOCLOPRAMIDE HCL 10 MG TABLET PO SCH ×3 (08:29→16:29)
[2018-05-30] MEDS: MORPHINE SULFATE IR 15 MG TABLET PO SCH ×2 (08:34→16:38)
[2018-05-30] MEDS: IV NS 0.9% 1,000 ML IV PRN (08:42)
[2018-05-30] MEDS: ENSURE ENLIVE 237 ML LIQUID (VANILLA) PO SCH ×2 (09:39→16:29)
[2018-05-30] MEDS: ACETAMINOPHEN 325 MG TABLET PO PRN (15:45)
[2018-05-30 16:00] VITALS: BP 107/71
[2018-05-30] MEDS ORDERED: ASPIRIN EC 325 MG TABLET.DR PO ONE (17:00)
--- NOTE | 2018-05-30 17:25 | NUR ---
RN NOTE RE INFORMED OF PT'S TEMP 100.1 THIS PM, TACHYCARDIA, ECG DONE SHOWING ST. PT APPEARS IN NO DISTRESS, C/O HEADACHE. TYLENOL GIVEN FOR TEMP.
--- NOTE | 2018-05-30 18:55 | NUR ---
RN NOTE PT REMAINS STABLE PAIN MANAGED WITH CURRENT REGIMEN. TOLERATING O2 VIA NC. POOR PO INTAKE WITH PERIODS OF NAUSEA. AMBULATORY WITH STEADY GAIT WITH MILD SOB ON EXERTION. LEFT CHEST PORT-A-CATH DRESSING REINFORCED. IVF INFUSING ORDERED. BSC IN ROOM. PT'S CARE WILL BE ENDORSED TO KNOCK OUT HAND RN FOR CONTINUITY OF CARE. BED IN LOW AND LOCKED POSITION CALL LIGHT WITHIN REACH. PT INSTRUCTED TO CALL FOR ASSISTANCE WHEN TRANSFERRING TO BSC AND HAS COMPLIED DURING SHIFT.
[2018-05-30] MEDS: IPRATROPIUM NEB FS 0.5 MG/2.5 ML AMPUL.NEB NEB PRN (19:36)
[2018-05-30 20:00] VITALS: BP 94/59
[2018-05-31] MEDS: HYDROMORPHONE INJ 2 MG/ML DISP.SYRIN IV PRN ×8 (00:01→22:28)
[2018-05-31] MEDS: ONDANSETRON HCL/PF 4 MG/2 ML VIAL IVP PRN ×5 (00:01→20:29)
[2018-05-31] MEDS: IPRATROPIUM NEB FS 0.5 MG/2.5 ML AMPUL.NEB NEB PRN ×4 (00:20→23:24)
[2018-05-31] MEDS: ALBUTEROL FS 2.5 MG/0.5 ML VIAL.NEB NEB SCH ×7 (00:20→23:24)
[2018-05-31] MEDS: IV NS 0.9% 1,000 ML IV PRN (02:21)
[2018-05-31] MEDS: MEROPENEM 1 G in IV NS 0.9% 100 ML IV SCH ×3 (02:21→17:11)
[2018-05-31 04:00] VITALS: BP 95/61
[2018-05-31] MEDS: VANCOMYCIN 0.75 GM in IV D5W 250 ML IV SCH ×2 (04:32→12:04)
[2018-05-31] MEDS: HYDROCODONE/APAP 5/325MG 1 EACH TABLET PO PRN ×2 (04:32→12:07)
--- NOTE | 2018-05-31 07:15 | NUR ---
MSRN. PT RECEIVED A&0X4, WITH O2 VIA NC AT 3LPM, DENIES SOB AT THIS TIME. PT REPORTING MODERATE GENERALIZED PAIN AND CONTINUED INTERMITTENT NAUSEA. PT WITH L CHEST PORT-A-CATH INTACT AND OPERATIONAL WITH IVF PER RX. PT BED IN LOWEST LOCKED POSITION WITH HANDRILASX2 AND CALL PARRA WITH REACH. PT REQUESTED TO CALL FOR ASSISTANCE PRIOR TO AMBULATING. PT BRIEFED ON POC AND IS WITHOUT COMPLAINT AT THIS TIME.
[2018-05-31 08:00] VITALS: BP 113/73
[2018-05-31] MEDS: FOLIC ACID 1 MG TABLET PO SCH (08:15)
[2018-05-31] MEDS: FERROUS SULFATE (325 MG) 325 MG/TAB TABLET PO SCH ×2 (08:15→16:50)
[2018-05-31] MEDS: hydrOXYzine 10 MG TABLET PO SCH ×3 (08:15→16:50)
[2018-05-31] MEDS: LEVETIRACETAM (250 MG) 250 MG TABLET PO SCH ×2 (08:16→16:50)
[2018-05-31] MEDS: METOCLOPRAMIDE HCL 10 MG TABLET PO SCH ×3 (08:16→16:50)
[2018-05-31] MEDS: PANTOPRAZOLE 40 MG VIAL IV SCH (08:16)
[2018-05-31] MEDS: MORPHINE SULFATE IR 15 MG TABLET PO SCH ×2 (08:17→16:50)
[2018-05-31] MEDS: ENSURE ENLIVE 237 ML LIQUID (VANILLA) PO SCH ×2 (09:57→17:21)
[2018-05-31] MEDS: ACETAMINOPHEN 325 MG TABLET PO PRN (10:59)
[2018-05-31 11:52] LABS: BASOPHILS # (AUTO) 0.1 /CMM (0.0-0.2); BASOPHILS % (AUTO) 0.4 % (0.0-2.0); EOSINOPHILS % (AUTO) 4.1 % (0.0-6.0); HEMATOCRIT 28 % (33-45); HEMOGLOBIN 9.1 g/dL (11.5-14.8); LYMPHOCYTES # (AUTO) 0.8 /CMM (0.8-4.8); LYMPHOCYTES % (AUTO) 6.8 % (20.0-44.0); MEAN CORPUSCULAR HGB CONC 32 g/dl (31.0-36.0); MEAN CORPUSCULAR VOLUME 83 fL (82-100); MONOCYTES # (AUTO) 0.7 /CMM (0.1-1.30); MONOCYTES % (AUTO) 5.6 % (2.0-12.0); NEUTROPHILS # (AUTO) 9.8 /CMM (1.8-8.9); NEUTROPHILS % (AUTO) 83.1 % (43.0-81.0); PLATELET COUNT (AUTO) 525 /CMM (150-450); RED BLOOD CELL COUNT(AUTO) 3.38 MIL/uL (4.0-5.2); WHITE BLOOD COUNT (AUTO) 11.8 K/uL (4.3-11.0)
[2018-05-31 12:07] LABS: ALBUMIN 1.9 g/dL (3.4-5.0); BILIRUBIN,TOTAL 0.1 mg/dL (0.2-1.0); CALCIUM, SERUM 8.4 mg/dL (8.5-10.1); CREATININE 0.5 mg/dL (0.6-1.3); POTASSIUM 3.6 mmol/L (3.5-5.1); TOTAL PROTEIN, SERUM 7.2 g/dL (6.4-8.2)
[2018-05-31 16:00] VITALS: BP 111/72
[2018-05-31] MEDS: VANCOMYCIN 1 GM in IV D5W 250 ML IV SCH (17:46)
--- NOTE | 2018-05-31 18:00 | NUR ---
DEMENTIA PROGRAM DIRECTOR DT CONTACTED FOR PAIN MANAGEMENT OPTIONS AND REQUESTING NORCO 5 INCREASE TO NORCO 10. WILL ORDER.
--- NOTE | 2018-05-31 19:07 | NUR ---
MSRN. PT REMAINS A&0X4, WITH O2 VIA NC AT 3LPM, DENIES SOB AT THIS TIME. PT REPORTING MODERATE GENERALIZED PAIN AND CONTINUED INTERMITTENT NAUSEA THROUGHOUT SHIFT DESPITE PRNS AND SCHEDULED. PT WITH L CHEST PORT-A-CATH INTACT AND OPERATIONAL WITH IVF PER RX. PT BED IN LOWEST LOCKED POSITION WITH HANDRAILX2 AND CALL PARRA WITHIN REACH. ALL DAY NURSE DUTIES ATTENDED TO AND PT IS WITHOUT CONCERN OR COMPLAINT AT THIS TIME. WILL ENDORSE TO MICHI NURSE AT BEDSIDE FOR DESTINI.
--- NOTE | 2018-05-31 19:40 | NUR ---
MS RN OPENING NOTES, PATIENT RECEIVED IN BED, WATCHING TV SITTING ON THE CHAIR, ALERT, ORIENTED X 4, ABLE TO VERBALIZE NEEDS, BREATHING EVEN AND UNLABORED, ON O2 AT 3LPM VIA NC, NO ACUTE DISTRESS NOTED, STILL ASKING FOR BREATHING TREATMENT, RT NOTIFIED, MEDICATION FOR PAIN ADMINISTERED PER PATIENT REQUEST, STATED 10/10 IN THE PAIN SCALE, SAFETY MEASURES IN PLACE, CALL LIGHT WITHIN REACH, BED LOCKED AND LOW POSITION, WILL CONTINUE TO MONITOR CLOSELY.
[2018-05-31 20:00] VITALS: BP 135/86
[2018-05-31] MEDS: HYDROCODONE/APAP 10/325MG 1 EA TABLET PO PRN (20:30)
[2018-06-01] MEDS: HYDROCODONE/APAP 10/325MG 1 EA TABLET PO PRN ×2 (00:57→06:30)
--- NOTE | 2018-06-01 01:35 | NUR ---
RN MS NOTES, INFORMED SHIRA FOX BURNER HAND THAT PATIENT HR IS BEEN 110-130, DESPITE DILAUDID AND NORCO ADMINISTRATION, AND ALSO NOTED THAT PATIENT IS ANXIOUS, PER HER TO CONT TO MONITOR.
[2018-06-01] MEDS: HYDROMORPHONE INJ 2 MG/ML DISP.SYRIN IV PRN ×7 (01:40→22:49)
[2018-06-01] MEDS: VANCOMYCIN 1 GM in IV D5W 250 ML IV SCH ×2 (01:40→10:00)
[2018-06-01] MEDS: IV NS 0.9% 1,000 ML IV PRN (01:46)
[2018-06-01] MEDS: MEROPENEM 1 G in IV NS 0.9% 100 ML IV SCH ×3 (02:53→17:01)
[2018-06-01] MEDS: ALBUTEROL FS 2.5 MG/0.5 ML VIAL.NEB NEB SCH ×6 (03:27→23:31)
[2018-06-01 04:00] VITALS: BP 127/84
--- NOTE | 2018-06-01 04:20 | NUR ---
RN MS NOTES, DOMINIQUE ON THE DEPARTMENT AT THIS TIME, AND ASSESSED PATIENT, WITH NEW ORDER FOR ATIVAN IV 1MG X1 NOW FOR ANXIETY, ADMINISTERED ORDERED.
[2018-06-01] MEDS ORDERED: LORAZEPAM INJ 2 MG/ML VIAL IV ONE (04:30)
[2018-06-01] MEDS ORDERED: FUROSEMIDE 20 MG/2 ML VIAL IV SCH (05:00)
[2018-06-01] MEDS ORDERED: FUROSEMIDE 20 MG/2 ML VIAL IV ONE (05:00)
[2018-06-01 08:00] VITALS: BP 122/80
--- NOTE | 2018-06-01 08:00 | NUR ---
RN NOTES PATIENT IN BED RESTING ALERT, ORIENTED X3 WITH SEJAL CATH INTACT PATENT. BED IN LOW LOCKED POSITION CALL LIGHT WITHIN REACH. WILL CONTINUE TO MONITOR.
[2018-06-01] MEDS: FOLIC ACID 1 MG TABLET PO SCH (09:28)
[2018-06-01] MEDS: PANTOPRAZOLE 40 MG VIAL IV SCH (09:28)
[2018-06-01] MEDS: FERROUS SULFATE (325 MG) 325 MG/TAB TABLET PO SCH ×2 (09:28→16:58)
[2018-06-01] MEDS: hydrOXYzine 10 MG TABLET PO SCH ×3 (09:28→16:57)
[2018-06-01] MEDS: METOCLOPRAMIDE HCL 10 MG TABLET PO SCH ×3 (09:28→16:58)
[2018-06-01] MEDS: LORAZEPAM 1 MG TABLET PO PRN ×2 (09:28→22:52)
[2018-06-01] MEDS: LEVETIRACETAM (250 MG) 250 MG TABLET PO SCH ×2 (09:31→16:58)
[2018-06-01] MEDS: ENSURE ENLIVE 237 ML LIQUID (VANILLA) PO SCH ×3 (09:42→16:58)
[2018-06-01] MEDS: MORPHINE SULFATE IR 15 MG TABLET PO SCH ×2 (10:18→18:19)
--- NOTE | 2018-06-01 11:00 | NUR ---
RN NOTES PATIENTS SEJAL CATH NOTED TO BE CLOTTED UNABLE TO FLUSH, ICU NURSE REMOVED SEJAL CATH ACCESS AND REINSERTED UNABLE TO FLUSH NEGRITO MADE AWARE ORDERED CATHFLOW TO DECLOTT LINE WAITING FOR MEDICATION.
[2018-06-01] MEDS ORDERED: ALTEPLASE CATHFLO 2 MG/VIAL XX ONE (11:30)
[2018-06-01 11:55] LABS: CALCIUM, SERUM 9.5 mg/dL (8.5-10.1); CREATININE 0.7 mg/dL (0.6-1.3); POTASSIUM 3.8 mmol/L (3.5-5.1)
--- NOTE | 2018-06-01 12:45 | NUR ---
CHARGE NOTES DC TELEMETRY PER DR. MIRANDA
[2018-06-01] MEDS ORDERED: HYDROMORPHONE INJ 0.5 MG/0.5 ML SYRINGE IM ONE (13:00)
[2018-06-01] MEDS ORDERED: MERO1VIA IV (14:14)
[2018-06-01] MEDS ORDERED: VANC1PLA11 IV (14:14)
[2018-06-01] MEDS ORDERED: LORAZEPAM 1 MG TABLET PO ONE (15:30)
[2018-06-01] MEDS: ONDANSETRON HCL/PF 4 MG/2 ML VIAL IVP PRN ×2 (15:49→19:39)
[2018-06-01 16:00] VITALS: BP 126/88
--- NOTE | 2018-06-01 16:00 | NUR ---
MS RN NOTES PATIENT WITH DISCHARGE ORDER TO [facility]. AMBULANCE AT BEDSIDE PATIENT WITH HEART RATE OF 152 MD AWARE PATIENT ADMINISTERED WITH ONE DOSE OF ATIVAN 2MG PO . AMBULANCE WILL RETURN UNABLE TO TRANSPORT IF HEART RATE ABOVE 120 CHARGE NURSE MADE AWARE. FORESTRY SCIENTIST NEGRITO MADE AWARE WILL CONTINUE TO MONITOR.
[2018-06-01] MEDS: ACETAMINOPHEN 325 MG TABLET PO PRN (18:18)
[2018-06-01] MEDS: VANCOMYCIN 0.75 GM in IV D5W 250 ML IV SCH (18:49)
--- NOTE | 2018-06-01 19:06 | NUR ---
MS RN NOTES PATIENT IN BED RESTING NO SOB OR ACUTE DISTRESS NOTED. ALL DUE MEDICATIONS ADMINISTERED ALL NEEDS MET. PATIENT ALERT, ORIENTED X3. SEJAL CATH INTACT PATENT. HEART RATE SINUS TACHE MD AWARE. BED IN LOW LOCKED POSITION , CALL LIGHT WITHIN REACH. ENDORSED CARE TP PM SHIFT.
[2018-06-01] MEDS: IPRATROPIUM NEB FS 0.5 MG/2.5 ML AMPUL.NEB NEB PRN ×2 (19:31→23:31)
--- NOTE | 2018-06-01 19:40 | NUR ---
MS RN OPENING NOTES, PATIENT RECEIVED IN BED, ALERT ORIENTED X 4, ABLE TO VERBALIZE NEEDS, STANDING TO USE COMMODE, WITH SOB, ON O2 AT 4LPM VIA NC, NEEDS TO REST AND TAKE DEEP BREATH EVERY TIME SHE GETS UP, SOB AND DESATURATION WITH EXERTION AND ACTIVITY, PAIN/NAUSEA MED ADMINISTERED AT THSI TIME, WELL RECEIVING BREATHING TX AT THIS TIME, SAFETY MEASURES IN PLACE, ASSISTANCE PROVIDED AT ALL TIMES, LCW POT CATH PATENT AND INTACT, CALL LIGHT WITHIN REACH, BED LOCKED AND LOW POSITION, WILL CONTINUE TO MONITOR CLOSELY.
[2018-06-01 20:00] VITALS: BP 110/80
--- NOTE | 2018-06-02 00:07 | NUR ---
SWITCH PT TO SIMPLE MASK. RN NOTIFIED.
[2018-06-02] MEDS: HYDROCODONE/APAP 10/325MG 1 EA TABLET PO PRN ×5 (00:22→23:24)
[2018-06-02] MEDS: HYDROMORPHONE INJ 2 MG/ML DISP.SYRIN IV PRN ×8 (01:47→22:33)
[2018-06-02] MEDS: MEROPENEM 1 G in IV NS 0.9% 100 ML IV SCH ×3 (01:52→17:50)
[2018-06-02] MEDS: VANCOMYCIN 0.75 GM in IV D5W 250 ML IV SCH ×3 (02:00→18:11)
[2018-06-02] MEDS ORDERED: VANCOMYCIN 1 GM VIAL ONE (03:23)
[2018-06-02] MEDS: ALBUTEROL FS 2.5 MG/0.5 ML VIAL.NEB NEB SCH ×6 (03:26→23:49)
[2018-06-02] MEDS: IPRATROPIUM NEB FS 0.5 MG/2.5 ML AMPUL.NEB NEB PRN ×3 (03:26→23:49)
[2018-06-02 04:00] VITALS: BP 124/90
--- NOTE | 2018-06-02 06:55 | NUR ---
MS RN CLOSING NOTES, PATIENT IN BED WITH EYES OPEN EASILY AROUSABLE TO VERBAL STIMULI, WITH SOB ON EXERTION , ON O2 5LPM VIA NC, ON PAIN MANAGEMENT, SAFETY MEASURES IN PLACE, ASSISTANCE PROVIDED AT ALL TIMES, LCW POT CATH PATENT AND INTACT, CALL LIGHT WITHIN REACH, BED LOCKED AND LOW POSITION, WILL ENDORSE CONTINUITY OF CARE TO ONCOMING NURSE.
[2018-06-02] MEDS: ONDANSETRON HCL/PF 4 MG/2 ML VIAL IVP PRN ×3 (07:02→15:11)
[2018-06-02] MEDS: LORAZEPAM 1 MG TABLET PO PRN ×2 (07:49→16:16)
[2018-06-02 08:00] VITALS: BP 133/88
[2018-06-02] MEDS: ENSURE ENLIVE 237 ML LIQUID (VANILLA) PO SCH ×3 (08:00→17:50)
[2018-06-02] MEDS: hydrOXYzine 10 MG TABLET PO SCH ×3 (09:15→17:47)
[2018-06-02] MEDS: FOLIC ACID 1 MG TABLET PO SCH (09:15)
[2018-06-02] MEDS: METOCLOPRAMIDE HCL 10 MG TABLET PO SCH ×3 (09:15→17:48)
[2018-06-02] MEDS: FERROUS SULFATE (325 MG) 325 MG/TAB TABLET PO SCH ×2 (09:16→17:48)
[2018-06-02] MEDS: LEVETIRACETAM (250 MG) 250 MG TABLET PO SCH ×2 (09:16→17:47)
[2018-06-02] MEDS: MORPHINE SULFATE IR 15 MG TABLET PO SCH ×2 (09:17→17:48)
[2018-06-02] MEDS: PANTOPRAZOLE 40 MG VIAL IV SCH (09:18)
[2018-06-02 10:50] LABS: CALCIUM, SERUM 9.2 mg/dL (8.5-10.1); CREATININE 0.6 mg/dL (0.6-1.3)
[2018-06-02 12:00] VITALS: BP 128/86
[2018-06-02] MEDS ORDERED: METOPROLOL TARTRATE 25 MG TABLET PO ONE (14:30)
[2018-06-02 16:00] VITALS: BP 142/87
--- NOTE | 2018-06-02 19:22 | NUR ---
MS RN NOTES RECEIVED PT ON BED. A/O X 4. ON NASAL CANNULA 5LPM SATURATING 95%. PT HR OF 130. IV ACCESS ON LCW SEJAL CATH S/L. PATENT AND INTACT. HEAD OF BED ELEVATED. SIDE RAILS UP. CALL LIGHT WITHIN REACH. BED ALARM ON. WILL CONTINUE TO MONITOR PT CLOSELY.
[2018-06-02 20:00] VITALS: BP 148/96
[2018-06-02] MEDS: ACETAMINOPHEN 325 MG TABLET PO PRN (21:01)
[2018-06-02] MEDS: LORAZEPAM INJ 2 MG/ML VIAL IV PRN (21:01)
--- NOTE | 2018-06-02 21:24 | NUR ---
MS RN NOTES PT WANTS ATIVAN IV. PAGED LINER INSTALLER. ORDERED 1MG ATIVAN Q6H ANXIETY.
[2018-06-03] VITALS (18 sets, daily range): BP systolic 90–150; BP diastolic 51–95
[2018-06-03] MEDS: MEROPENEM 1 G in IV NS 0.9% 100 ML IV SCH ×3 (01:02→17:15)
[2018-06-03 01:15] LABS: ABG OXYGEN SATURATION 90.4 % (92.0-98.5); ABG PCO2 73.8 mmHg (35.0-45.0); ABG PH 7.373 (7.350-7.450); ABG PO2 65.4 mmHg (75.0-100.0); AaDO2 193.5 mmHg; COHb 0.3 % (0.5-1.5); MetHb 0.5 % (0.0-1.5); O2Hb 89.7 % (94.0-97.0); SITE, ABG Left Radial; VENT MODE, BG Nasal Cannula
[2018-06-03] MEDS: HYDROMORPHONE INJ 2 MG/ML DISP.SYRIN IV PRN ×8 (01:30→23:20)
--- NOTE | 2018-06-03 01:30 | NUR ---
BUSINESS CONTINUITY STRATEGY DIRECTOR NOTES CN AND RN OFFERED ANA ODILON IF PT TRANSFER TO ICU. PER ANA DONALD NO NEED.
--- NOTE | 2018-06-03 01:33 | NUR ---
FURNACE KEEPER NOTES ANA ODILON AT BEDSIDE. PER ANA ODILON, PUT PT ON BIPAP, RT AT BEDSIDE. UPGRADE TO TELE STATUS PER ANA DONALD
--- NOTE | 2018-06-03 01:36 | NUR ---
ELECTRICIAN RADIO NOTES PT REFUSED BIPAP. EXPLAINED BENEFITS AND RISK OF WEARING BIPAP. PT STILL REFUSED. RT AT BEDSIDE. CHARGE NURSE INFORMED.
--- NOTE | 2018-06-03 01:38 | NUR ---
STAT ABG DONE. NOTIFIED MICHAEL BACH, STEEL POST INSTALLER SHAYLA AND DR DONALD WITH THE RESULT. PER DR DONALD PLACE PT ON BIPAP. AFTER 2 MINS ON BIPAP PT DID NOT WANT IT ANYMORE, REFUSED TO WEAR IT. RN AWARE.
--- NOTE | 2018-06-03 01:40 | NUR ---
TROLLEY WIRE INSTALLER NOTES ANA DONALD INFORMED ABOUT PT REFUSING BIPAP.
[2018-06-03] MEDS: VANCOMYCIN 0.75 GM in IV D5W 250 ML IV SCH ×3 (02:14→17:15)
[2018-06-03] MEDS: ACETAMINOPHEN 325 MG TABLET PO PRN (03:10)
[2018-06-03] MEDS: IPRATROPIUM NEB FS 0.5 MG/2.5 ML AMPUL.NEB NEB PRN ×4 (03:42→23:38)
[2018-06-03] MEDS: ALBUTEROL FS 2.5 MG/0.5 ML VIAL.NEB NEB SCH ×6 (03:42→23:38)
--- NOTE | 2018-06-03 07:19 | NUR ---
AIR EXPORT AGENT NOTES PT COMPLAINING OF PAIN THROUGHOUT THE SHIFT. CONTROLLED BY DILAUDID AND NORCO. PT REFUSING BIPAP. EXPLAINED RISK. DUE MEDS GIVEN. PROVIDED COMFORT AND SAFETY. WILL ENDORSE TO THE AM NURSE FOR CONTINUITY OF CARE.
[2018-06-03] MEDS: ENSURE ENLIVE 237 ML LIQUID (VANILLA) PO SCH ×3 (07:41→17:17)
[2018-06-03] MEDS: LORAZEPAM INJ 2 MG/ML VIAL IV PRN ×3 (07:59→19:24)
[2018-06-03 08:39] LABS: CALCIUM, SERUM 9.2 mg/dL (8.5-10.1); CREATININE 0.5 mg/dL (0.6-1.3); POTASSIUM 4.1 mmol/L (3.5-5.1)
[2018-06-03 08:45] LABS: BASOPHILS % (AUTO) 0.3 % (0.0-2.0); EOSINOPHILS % (AUTO) 0.9 % (0.0-6.0); HEMATOCRIT 30 % (33-45); HEMOGLOBIN 9.5 g/dL (11.5-14.8); LYMPHOCYTES # (AUTO) 0.8 /CMM (0.8-4.8); LYMPHOCYTES % (AUTO) 4.5 % (20.0-44.0); MEAN CORPUSCULAR HGB CONC 32 g/dl (31.0-36.0); MEAN CORPUSCULAR VOLUME 84 fL (82-100); MONOCYTES # (AUTO) 1.2 /CMM (0.1-1.30); MONOCYTES % (AUTO) 7.4 % (2.0-12.0); NEUTROPHILS # (AUTO) 14.5 /CMM (1.8-8.9); NEUTROPHILS % (AUTO) 86.9 % (43.0-81.0); PLATELET COUNT (AUTO) 686 /CMM (150-450); RED BLOOD CELL COUNT(AUTO) 3.57 MIL/uL (4.0-5.2); WHITE BLOOD COUNT (AUTO) 16.7 K/uL (4.3-11.0)
[2018-06-03] MEDS ORDERED: LIDOCAINE HCL/PF 1% 30 ML SDV ONE (08:50)
[2018-06-03] MEDS: MORPHINE SULFATE IR 15 MG TABLET PO SCH ×2 (09:28→17:21)
[2018-06-03] MEDS: LEVETIRACETAM (250 MG) 250 MG TABLET PO SCH ×2 (09:28→17:03)
[2018-06-03] MEDS: FOLIC ACID 1 MG TABLET PO SCH (09:28)
[2018-06-03] MEDS: PANTOPRAZOLE 40 MG VIAL IV SCH (09:28)
[2018-06-03] MEDS: FERROUS SULFATE (325 MG) 325 MG/TAB TABLET PO SCH ×2 (09:28→17:03)
[2018-06-03] MEDS: METOCLOPRAMIDE HCL 10 MG TABLET PO SCH ×3 (09:28→17:03)
[2018-06-03] MEDS: ERGOCALCIFEROL (VITAMIN D 2) 50,000 UNIT CAPSULE PO SCH (09:30)
--- NOTE | 2018-06-03 09:30 | NUR ---
RN INITIAL NOTES RECEIVED PT FROM [facility]LA[facility]. PT A/OX4. C/O SOB. RESPIRATORY DISTRESS NOTED. PT PLACED ON NON-BREATHER AT 15LPM. HOB ELEVATED. CONNECTED TO MONITOR. PT HR 130S, RR 30S. LEFT PORT-A-CATH PATENT. PT FOR US GUIDED THORACENTESIS (R). DR WOODARD IN THE UNIT. DR BOWMAN AWARE OF TRANSFER. WILL CLOSELY MONITOR.
--- NOTE | 2018-06-03 10:14 | NUR ---
RN NOTE pt had oxygen desaturation episode according to car shifter, ABG done, pt was supposed to be on bipap, but could not tolerate it and refused, was put on simple mask 6.0 l/min, and nasal cannula 3.o l/min together, Pt later pt co pain in back and chest and being tired, pain med given. pt was also anxious and requested ativan, which was administered as well around 744.pt stated she feels better. Later around 906 pt co about oxygen blowing too much in mask and requested to decrease the flow, pt short of breath, and then began to desaturating, rapid response team called, then oxygen adjusted back to higher level. saturation started to go up to 80% and then 90%. per glaze supervisor and dr smallwood to transfer pt to icu. DR BOWMAN NOTIFIED ABOUT THE SITUATION. REPORT GIVEN TO CULTURED [employer]ODUCTS MAKER ELENA FOR DESTINI.
[2018-06-03] MEDS: hydrOXYzine 10 MG TABLET PO SCH ×3 (13:00→17:19)
[2018-06-03] MEDS: ONDANSETRON HCL/PF 4 MG/2 ML VIAL IVP PRN (13:33)
[2018-06-03 13:47] LABS: ABG BASE EXCESS 15.3 mmol/L; ABG OXYGEN SATURATION 95.3 % (92.0-98.5); ABG PCO2 78.6 mmHg (35.0-45.0); ABG PH 7.362 (7.350-7.450); ABG PO2 84.1 mmHg (75.0-100.0); AaDO2 132.7 mmHg; COHb 0.3 % (0.5-1.5); MetHb 0.6 % (0.0-1.5); O2Hb 94.4 % (94.0-97.0); SITE, ABG Right Femoral; VENT MODE, BG 6L N/C
--- NOTE | 2018-06-03 14:00 | NUR ---
Pt slept comfortably for 2.5h on 6L nc sat 96%. ABG obtained after pt woke up, improvement noted. will continue 6l nc. pt assisted to bed side commode and assisted with hygiene. Lunch provided. pt ate 75% of her lunch.
[2018-06-03] MEDS: HYDROCODONE/APAP 10/325MG 1 EA TABLET PO PRN ×2 (15:24→21:10)
--- NOTE | 2018-06-03 19:30 | NUR ---
COMPUTING ARCHITECT NOTE PT RECEIVED A/O X4. NOTED TO BE ANXIOUS AND RESTLESS. ON 6L OF O2 VIA NC AND SATURATING 95%. DENIES SOB. BREATHING UNLABORED. HOB ELEVATED. C/O GENERALIZED PAIN. EXPLAINED TO PT DILAUDID IS NOT DUE FOR ANOTHER HOUR. WILL GIVE SOON TIME PERMITS. PT VERBALIZED UNDERSTANDING. LCW PORTACATH IN PLACE WITH FLUIDS INFUSING. CALL LIGHT WITHIN REACH. WILL CONTINUE TO MONITOR.
--- NOTE | 2018-06-03 21:30 | NUR ---
ASSEMBLER SURGICAL GARMENT NOTE NOTED WITH SOB. PUT ON VENTURI MASK 50%FIO2. PT SAID SHE CAN BREATHE BETTER WITH THE VENTURI MASK. WILL MONITOR.
--- NOTE | 2018-06-03 22:20 | NUR ---
SILVER SOLUTION MIXER NOTE PT NOTED WITH SOB ON VENTURI MASK. OFFERED BIPAP. PT REFUSING TO BE PLACED ON BIPAP. EXPLAINED RISKS AND BENEFITS TO PT WITH CHARGE NURSE AT BEDSIDE. PT STILL REFUSING. WILL TRY IN A LITTLE WHILE. O2 SAT 88-91% AT THIS TIME ON VENTURI. WILL MONITOR.
[2018-06-04] VITALS (23 sets, daily range): BP systolic 85–122; BP diastolic 32–83
[2018-06-04] MEDS: ACETAMINOPHEN 325 MG TABLET PO PRN (00:33)
[2018-06-04] MEDS: MEROPENEM 1 G in IV NS 0.9% 100 ML IV SCH ×3 (01:36→17:39)
[2018-06-04] MEDS: LORAZEPAM INJ 2 MG/ML VIAL IV PRN ×3 (01:50→20:01)
[2018-06-04] MEDS: VANCOMYCIN 0.75 GM in IV D5W 250 ML IV SCH ×3 (02:12→17:52)
[2018-06-04] MEDS: HYDROMORPHONE INJ 2 MG/ML DISP.SYRIN IV PRN ×6 (02:54→23:05)
[2018-06-04] MEDS: IPRATROPIUM NEB FS 0.5 MG/2.5 ML AMPUL.NEB NEB PRN ×3 (03:38→15:30)
[2018-06-04] MEDS: ALBUTEROL FS 2.5 MG/0.5 ML VIAL.NEB NEB SCH ×6 (03:40→23:30)
[2018-06-04 04:33] LABS: BASOPHILS # (AUTO) 0.1 /CMM (0.0-0.2); BASOPHILS % (AUTO) 0.4 % (0.0-2.0); EOSINOPHILS % (AUTO) 1.8 % (0.0-6.0); HEMATOCRIT 30 % (33-45); HEMOGLOBIN 9.5 g/dL (11.5-14.8); LYMPHOCYTES # (AUTO) 0.8 /CMM (0.8-4.8); LYMPHOCYTES % (AUTO) 4.3 % (20.0-44.0); MEAN CORPUSCULAR HGB CONC 32 g/dl (31.0-36.0); MEAN CORPUSCULAR VOLUME 84 fL (82-100); MONOCYTES # (AUTO) 0.9 /CMM (0.1-1.30); NEUTROPHILS # (AUTO) 15.9 /CMM (1.8-8.9); NEUTROPHILS % (AUTO) 88.5 % (43.0-81.0); PLATELET COUNT (AUTO) 730 /CMM (150-450); RED BLOOD CELL COUNT(AUTO) 3.55 MIL/uL (4.0-5.2)
[2018-06-04 04:46] LABS: CALCIUM, SERUM 8.9 mg/dL (8.5-10.1); CREATININE 0.5 mg/dL (0.6-1.3); POTASSIUM 3.9 mmol/L (3.5-5.1)
[2018-06-04] MEDS: HYDROCODONE/APAP 10/325MG 1 EA TABLET PO PRN ×5 (07:00→23:37)
--- NOTE | 2018-06-04 07:28 | NUR ---
DIRECTOR TRANSPORTATION NOTE PT NOW ON VENTURI MASK AND SATURATING 100%. STILL COMPLAINING OF PAIN. NORCO 10/325 PO GIVEN. KEPT CLEAN AND DRY. ALL NEEDS ATTENDED TO PROMPTLY. ALL SAFETY MEASURES IN PLACE. CALL LIGHT WITHIN REACH. WILL ENDORSE TO NEXT SHIFT FOR CONTINUITY OF CARE.
[2018-06-04] MEDS: FOLIC ACID 1 MG TABLET PO SCH (09:02)
[2018-06-04] MEDS: LEVETIRACETAM (250 MG) 250 MG TABLET PO SCH ×2 (09:02→16:58)
[2018-06-04] MEDS: PANTOPRAZOLE 40 MG VIAL IV SCH (09:02)
[2018-06-04] MEDS: METOCLOPRAMIDE HCL 10 MG TABLET PO SCH ×3 (09:03→16:58)
[2018-06-04] MEDS: hydrOXYzine 10 MG TABLET PO SCH ×3 (09:04→16:58)
[2018-06-04] MEDS: MORPHINE SULFATE IR 15 MG TABLET PO SCH ×2 (09:04→16:59)
[2018-06-04] MEDS: FERROUS SULFATE (325 MG) 325 MG/TAB TABLET PO SCH ×2 (09:12→16:58)
[2018-06-04] MEDS: ONDANSETRON HCL/PF 4 MG/2 ML VIAL IVP PRN (09:12)
[2018-06-04] MEDS: ENSURE ENLIVE 237 ML LIQUID (VANILLA) PO SCH ×3 (09:19→17:03)
[2018-06-04 10:05] LABS: ABG BASE EXCESS 15.9 mmol/L; ABG OXYGEN SATURATION 90.9 % (92.0-98.5); ABG PCO2 69.6 mmHg (35.0-45.0); ABG PO2 63.2 mmHg (75.0-100.0); COHb 0.3 % (0.5-1.5); MetHb 0.5 % (0.0-1.5); O2Hb 90.2 % (94.0-97.0); SITE, ABG Right Femoral; VENT MODE, BG VENTURI MASK
[2018-06-04] MEDS: FUROSEMIDE 40 MG/4 ML VIAL IV SCH ×2 (11:55→17:21)
--- NOTE | 2018-06-04 20:03 | NUR ---
PRESIDENTIAL SUPPORT SPECIALIST. INITIAL ASSESSMENT. RECEIVED THE PT REST ON THE BED. AWAKE, ALERT, FOLLOW COMMANDS. RESISTOR WINDER SHOWING S TACH. OXYGEN VENTURI MASK. SAT 98%. IV LT CHEST SEJAL CATH TKO RUNNING, HOB ELEVATED. WILL CONTINUE TO MONITOR VITALS.
--- NOTE | 2018-06-04 20:07 | NUR ---
SWIM INSTRUCTOR. PT C/O PAIN ATIVAN AND NORCO GIVEN PER MD ORDERED.
--- NOTE | 2018-06-04 21:09 | NUR ---
GAS WELL DRILLING MANAGER. PT C/O PAIN DILAUDID GIVEN PER ORDERED.
[2018-06-05] VITALS (18 sets, daily range): BP systolic 79–114; BP diastolic 48–75
[2018-06-05] MEDS: HYDROMORPHONE INJ 2 MG/ML DISP.SYRIN IV PRN ×7 (01:28→22:02)
[2018-06-05] MEDS: MEROPENEM 1 G in IV NS 0.9% 100 ML IV SCH ×4 (02:08→18:40)
[2018-06-05] MEDS: LORAZEPAM INJ 2 MG/ML VIAL IV PRN ×4 (02:46→19:30)
[2018-06-05] MEDS: VANCOMYCIN 0.75 GM in IV D5W 250 ML IV SCH ×4 (02:46→18:41)
[2018-06-05] MEDS: HYDROCODONE/APAP 10/325MG 1 EA TABLET PO PRN ×3 (03:57→20:04)
[2018-06-05] MEDS: ALBUTEROL FS 2.5 MG/0.5 ML VIAL.NEB NEB SCH ×6 (04:00→23:00)
[2018-06-05 04:56] LABS: BASOPHILS # (AUTO) 0.1 /CMM (0.0-0.2); BASOPHILS % (AUTO) 0.6 % (0.0-2.0); EOSINOPHILS % (AUTO) 3.9 % (0.0-6.0); HEMATOCRIT 27 % (33-45); HEMOGLOBIN 8.8 g/dL (11.5-14.8); LYMPHOCYTES % (AUTO) 7.2 % (20.0-44.0); MEAN CORPUSCULAR HGB CONC 32 g/dl (31.0-36.0); MEAN CORPUSCULAR VOLUME 83 fL (82-100); MONOCYTES # (AUTO) 0.9 /CMM (0.1-1.30); MONOCYTES % (AUTO) 6.3 % (2.0-12.0); NEUTROPHILS # (AUTO) 11.5 /CMM (1.8-8.9); PLATELET COUNT (AUTO) 731 /CMM (150-450); RED BLOOD CELL COUNT(AUTO) 3.29 MIL/uL (4.0-5.2)
[2018-06-05 05:08] LABS: CALCIUM, SERUM 8.7 mg/dL (8.5-10.1); CREATININE 0.6 mg/dL (0.6-1.3); MAGNESIUM 2.1 mg/dL (1.8-2.4); PHOSPHORUS 2.7 mg/dL (2.5-4.9); POTASSIUM 3.7 mmol/L (3.5-5.1)
--- NOTE | 2018-06-05 07:10 | NUR ---
RN INITIAL NOTES RECEIVED PT AWAKE, A/OX4. SITTING ON A CHAIR ON VENTURI MASK AT 15LPM. LEFT CHEST PORT-A-CATH IN PLACE. WILL KEEP PT COMFORTABLE. CALL LIGHT WITHIN REACH. WILL MONITOR.
[2018-06-05] MEDS: ENSURE ENLIVE 237 ML LIQUID (VANILLA) PO SCH ×3 (08:05→16:18)
[2018-06-05] MEDS: PANTOPRAZOLE 40 MG VIAL IV SCH (08:05)
[2018-06-05] MEDS: FERROUS SULFATE (325 MG) 325 MG/TAB TABLET PO SCH ×2 (08:06→16:18)
[2018-06-05] MEDS: LEVETIRACETAM (250 MG) 250 MG TABLET PO SCH ×2 (08:06→16:18)
[2018-06-05] MEDS: MORPHINE SULFATE IR 15 MG TABLET PO SCH ×2 (08:06→16:18)
[2018-06-05] MEDS: METOCLOPRAMIDE HCL 10 MG TABLET PO SCH ×3 (08:06→16:18)
[2018-06-05] MEDS: FOLIC ACID 1 MG TABLET PO SCH (08:06)
[2018-06-05] MEDS: hydrOXYzine 10 MG TABLET PO SCH ×3 (08:06→16:18)
[2018-06-05] MEDS: ONDANSETRON HCL/PF 4 MG/2 ML VIAL IVP PRN ×2 (09:20→16:17)
[2018-06-05 09:49] LABS: ABG BASE EXCESS 18.7 mmol/L; ABG OXYGEN SATURATION 96.9 % (92.0-98.5); ABG PCO2 77.5 mmHg (35.0-45.0); ABG PH 7.398 (7.350-7.450); ABG PO2 97.8 mmHg (75.0-100.0); AaDO2 98.3 mmHg; COHb 0.1 % (0.5-1.5); MetHb 0.4 % (0.0-1.5); O2Hb 96.4 % (94.0-97.0); SITE, ABG Right Radial; VENT MODE, BG 5L NC
--- NOTE | 2018-06-05 10:30 | NUR ---
RN NOTES 0900 SEEN AND EXAMINED BY DR WOODARD. PT ON VENTURI MASK AT 15LPM. HOB ELEVATED. PER , TITRATE O2 TO NC AT 6LPM VIA NC. WILL DO ABG. WILL CLOSELY MONITOR 1030 SEEN AND EXAMINED BY DR BOWMAN. PT TOLERATING 02 VIA NC AT 6LPM. NO SOB NOTED. MD AWARE OF CURRENT LAB VALUES AND CXR RESULT. WILL CONTINUE TO MONITOR
--- NOTE | 2018-06-05 15:40 | NUR ---
RN NOTES PT TRANSFERRED TO ROOM 113-1. PT A/0X4. ON 02 VIA NC. HOB ELEVATED. ENDORSED TO MICHAEL ROLDAN. TOOK OVER PT'S CARE
--- NOTE | 2018-06-05 15:40 | NUR ---
FLAKITA BLANCA UPON VS CHECK BP IS 90/61, HR: 136, SPO2 %94. INFORMED PT THAT AT THIS TIME IT IS NOT SAFE TO GIVE IV ATIVAN SINCE SHE HAS HAD MORPHINE 30MG AT 1618 AND HAS ALSO STATED THAT SHE WANTS HER IV DILAUDID AT 1830 WHEN IT IS DUE NEXT. INFORMED THE PT THAT WE CAN ELEVATE HER LEGS AND ENCOURAGE PO INTAKE TO RAISE BLOOD PRESSURE AND WILL RE CHECK IN 15 MINS. THE PT BECAME AGITATED WITH THE NURSE AND STATED "I AM ENTITLED TO GETTING MY MEDS WHEN I ASK". INFORMED THE PT THAT THEY ARE ABLE TO HAVE PRN MEDICATIONS WHEN DUE ONLY WHEN VS WITHIN A NORMAL RANGE AND IT IS SAFE TO ADMINISTER NARCOTICS. THE PT THEN SAID "GIVE MY MY MEDS NOW". THE NURSE INFORMED THE PT THAT AT THIS POINT IN TIME, IT IS NOT SAFE TO ADMINISTER NARCOTICS, ESPECIALLY SINCE THE PT IS STATING SHE WOULD ALSO LIKE IV DILAUDID AT 1830. THE PT AGREEABLE FOR NOW TO ELEVATING LEGS AND DRINKING WATER AND PENDING AN ADDITIONAL VS CHECK. Addendum: 06/05/18 at 1753 by JAMAR LOVELACE RN ERROR, WRONG TIME, PLEASE DISREGARD
--- NOTE | 2018-06-05 15:44 | NUR ---
FLAKITA RN PT TRANSFER NOTE RECEIVED PT FROM ICU VIA BED. PT IS ALERT AND ORIENTED X4. PT DENIES N/V, CHEST PAIN, SOB. BREATHING IS EVEN AND UNLABORED ON 6L NC. PT STATES SHE HAD PAIN 6/10 THAT IS CHRONIC AND CONTINUOS AT THE LOWER BACK AND CHEST, THE PAIN IS WORSE WITH INSPIRATION AND COUGH. PER EMAR PT RECEIVED DILAUDID 0.5MG IV AT 1517 IN THE ICU. PT PLACED ON TELE MONITOR AND IS SINUS TACH WITH HR IN 140'S. VS OBTAINED PER PROTOCOL. PT HAS A LEFT CHEST PORT A CATH WITH DSG THAT IS CLEAN, DRY AND INTACT. MOTHER IS AT THE BEDSIDE. UNIT ORIENTATION AND USE OF CALL LIGHT SYSTEM PROVIDED TO PT AND MOTHER, BOTH WHO VERBALIZED UNDERSTANDING. PT IS REQUESTING FOR STAFF TO HEAT UP FOOD FOR HER, KEVIN VALENZUELA TOOK FOOD TO HEAT UP AND PROVIDED BACK TO PT. THE PT AND MOTHER EXPRESSED CONCERN REGARDING PAIN MEDICATION ADMINISTRATION AND MAKING SURE IT IS ON TIME AND THAT THEY ARE BOTH AWARE OF WHAT MEDICATIONS ARE BEING GIVEN. THE NURSE INFORMED THE PT AND MOTHER THAT SHE WILL REVIEW ORDERED MEDICATIONS AND INSURE THAT DUE MEDICATIONS ARE GIVEN ORDERED. THE NURSE INFORMED THE PT AND MOTHER THAT PRN MEDICATIONS ARE " NEEDED", MEANING THAT THEY ARE ADMINISTERED WHEN REQUESTED AND PENDING THE PT HAVING VS THAT ARE SAFE FOR ADMINISTRATION. THE NURSE INFORMED THE PT THAT THE PT CAN REQUEST PAIN MEDICATION WHEN NEEDED AND THAT THE NURSE WILL FOLLOW UP WITH PAIN LEVELS. THE MOTHER AND PT VERBALIZED UNDERSTANDING AND AGREEMENT. ALL NEEDS ATTENDED TO. BED IS LOCKED AND IN LOWEST POSITION, SIDE RAILS UP X3, BED ALARM ON, CALL LIGHT AND POSSESSIONS WITHIN REACH.
--- NOTE | 2018-06-05 16:18 | NUR ---
FLAKITA RN MORPHINE ROUTINE MORPHINE 30MG PO ADMINISTERED ORDERED, THE PT IS REQUESTING PRN ATIVAN AT THIS TIME, HOWEVER, PROVIDED EDUCATION REGARDING THE RISKS AND BENEFITS OF NARCOTIC ADMINISTRATION AND EXPLAINED THAT ADDITIONALLY DUE TO THE PT DX OF PNA AND PREVIOUS RESPIRATORY DISTRESS, THE NURSE WILL NEED TO SPREAD OUT NARCOTIC MEDICATION ADMINISTRATION DUE TO INCREASED RISKS FOR RESPIRATORY DEPRESSION, DECREASED BLOOD PRESSURE, AND DECREASED LOC. THE NURSE INFORMED THE PT THAT A MINIMUM OF 45 MINS TO AN HOUR IS REQUIRED BETWEEN NARCOTIC MEDICATION ADMINISTRATION AND MEDICATIONS WILL ONLY BE ADMINISTERED PENDING AN ADDITIONAL VS CHECK AND IF VS ARE AT THE PT BASELINE. THE PT VERBALIZED AGREEMENT AND UNDERSTANDING AT THIS TIME.
--- NOTE | 2018-06-05 17:40 | NUR ---
FLAKITA RN ATIVAN NOTE UPON VS CHECK BP IS 90/61, HR: 136, SPO2 %94. INFORMED PT THAT AT THIS TIME IT IS NOT SAFE TO GIVE IV ATIVAN SINCE SHE HAS HAD MORPHINE 30MG AT 1618 AND HAS ALSO STATED THAT SHE WANTS HER IV DILAUDID AT 1830 WHEN IT IS DUE NEXT. INFORMED THE PT THAT WE CAN ELEVATE HER LEGS AND ENCOURAGE PO INTAKE TO RAISE BLOOD PRESSURE AND WILL RE CHECK IN 15 MINS. THE PT BECAME AGITATED WITH THE NURSE AND STATED "I AM ENTITLED TO GETTING MY MEDS WHEN I ASK". INFORMED THE PT THAT THEY ARE ABLE TO HAVE PRN MEDICATIONS WHEN DUE ONLY WHEN VS WITHIN A NORMAL RANGE AND IT IS SAFE TO ADMINISTER NARCOTICS. THE PT THEN SAID "GIVE MY MY MEDS NOW". THE NURSE INFORMED THE PT THAT AT THIS POINT IN TIME, IT IS NOT SAFE TO ADMINISTER NARCOTICS, ESPECIALLY SINCE THE PT IS STATING SHE WOULD ALSO LIKE IV DILAUDID AT 1830. THE PT AGREEABLE FOR NOW TO ELEVATING LEGS AND DRINKING WATER AND PENDING AN ADDITIONAL VS CHECK.
--- NOTE | 2018-06-05 18:10 | NUR ---
FLAKITA RN NOTE THE NURSE ENTERED THE ROOM TO ADMINISTER VANCOMYCIN AND MERREM ORDERED AND TO ADMINISTER ATIVAN 0.5MG ORDERED. PT BP IS 107/77. HR: 135, SP02: %95. THE PT WAS INITIALLY AGREEABLE TO THE PLAN, HOWEVER THE PT ASKED WHEN THE NEXT TIME SHE COULD HAVE HER DILAUDID WAS. THE NURSE INFORMED THE PT THAT AT APPROXIMALLY 6:20-6:30 THE NEXT DILAUDID COULD BE ADMINISTERED ORDERED PENDING A VS CHECK AND SPACING OUT NARCOTIC ADMINISTRATION A MINIMUM OF 30MINS-45MIN APART FOR SAFETY REASONS. THE PT THEN BECAME AGITATED AND STATED "I'M NOT PLAYING THIS GAME, GIVE ME MY MEDS WHEN THEY ARE DUE". THE NURSE STATED THAT THERE IS NO GAME BEING PLAYED AND THAT STAFF IS ABLE TO ADMINISTER PRN MEDICATIONS WHEN ORDERED PENDING IT IS SAFE TO DO SO. THE NURSE ASKED IF THE PT WOULD PREFER TO NOT RECEIVED THE ATIVAN AND WAIT TO RECEIVED THE DILAUDID AT APPROXIMATELY 1830. THE NURSE ATTEMPTED TO PROVIDE ADDITIONAL EDUCATION REGARDING SAFE ADMINISTRATION OF NARCOTICS AND RISKS AND BENEFITS, HOWEVER THE PT CUT THE NURSE OFF AND STATED "I WANT MY MEDS WHEN THEY ARE DUE". THE NURSE THEN ASKED IF SHE COULD ADMINISTER THE IV VANCOMYCIN AND MERREM ORDERED AT THIS TIME. THE PT STATED "NO" AND THE PT STATED "I WANT TO TALK TO YOUR CHARGE NURSE". THE NURSE INFORMED CHARGE NURSE SUAD REGARDING MATTER.
--- NOTE | 2018-06-05 18:37 | NUR ---
FLAKITA RN NOTE PER CHARGE NURSE SUAD, PT AGREEABLE TO RECEIVING IV DILAUDID FOR PAIN AND ABX.
--- NOTE | 2018-06-05 18:41 | NUR ---
FLAKITA RN NOTE DILAUDID 1MG IV ADMINISTERED ORDERED. BP 107/77, HR 135, SP02 %95.
--- NOTE | 2018-06-05 19:35 | NUR ---
FLAKITA RN CLOSING NOTE PT IN BED,ALERT AND ORIENTED X4. PT DENIES N/V, CHEST PAIN, SOB. BREATHING IS EVEN AND UNLABORED ON 6L NC. PT ON TELE MONITOR AND IS SINUS TACH WITH HR IN 140'S. DILAUDID 1MG IV ADMINISTERED FOR PAIN ORDERED AT 1841. PT HAS A LEFT CHEST PORT A CATH WITH DSG THAT IS CLEAN, DRY AND INTACT AND INFUSING ORDERED. ADLS PROVIDED, ALL NEEDS ATTENDED TO. BED IS LOCKED AND IN LOWEST POSITION, SIDE RAILS UP X3, BED ALARM ON, CALL LIGHT AND POSSESSIONS WITHIN REACH. WILL ENDORSE TO DIVISION TRAFFIC SUPERINTENDENT NURSE FOR CONTINUITY OF CARE.
--- NOTE | 2018-06-05 20:05 | NUR ---
TD/RN INITIAL NOTES RECEIVED PT IN BED, A/OX4. SINUS TACHY HR 130S ON TELEMONITOR, PER ENDORSEMENT BASELINE. ON 6L O2 VIA NC, NO SOB NOTED. WITH INTACT AND PATENT PORT A CATH. SAFETY MEASURES IN PLACED. CALL LIGHT WITHIN EASY REACH. WILL CONT TO MONITOR
--- NOTE | 2018-06-05 21:00 | NUR ---
2100 SUMMONED TO PATIENT'S ROOM, NOTED PATIENT WITH EPISODE OF HYPERVENTILATION AND DESATURATION, O2 SAT NOTED AT 85%. PLACED PATIENT ON NON REBREATHER MASK AT THIS TIME AND PLACED HER ON HIGH FOWLERS POSITION. RTS AT BEDSIDE AND MONITORING PATIENT. O2 SATURATION IMPROVED TO 97%. LEAD RT ERICKA SWITCHED PATIENT'S O2 TO VENTI MASK AT 50%, O2 SAT NOTED AT 90-92%. PATIENT REMAINS IN UPRIGHT POSITION AND VERBALIZED THAT SHE FEELS BETTER. CALL LIGHT PLACED WITHIN REACH AND INSTRUCTED HER TO CALL FOR ASSISTANCE.
--- NOTE | 2018-06-05 21:30 | NUR ---
2129 REMAINS IN BED IN UPRIGHT POSITION. O2 SATURATION NOTED AT 92% ON VENTI MASK AT 50%. NO SIGNS OF RESPIRATORY DISTRESS NOTED. PATIENT CONT. TO REFUSE BIPAP WHEN OFFERED STATING " MY DOCTOR SAID IN THE MORNING THAT I DON'T NEED IT." EXPLAINED TO HER THE BENEFIT OF THE BIPAP MACHINE AND THE RISKS OF HER REFUSAL BUT PATIENT CONT. TO REFUSE. WILL CONT TO MONITOR CLOSELY.
--- NOTE | 2018-06-05 21:35 | NUR ---
RT NOTE CALLED TO PT'S ROOM BECAUSE OF DISTRESS AND DESATURATION. PT WAS ON 5L NC WHEN I ARRIVED AT 74% SPO2. PT WAS PLACED ON NON-REBREATHER, O2 SAT INCREASED TO 97%. PT WAS THEN PLACED ON VENTURI MASK ON 50% AND SPO2 WAS STABLE AT 94-95%. WILL CONT TO MONITOR PT. RN IS AWARE.
[2018-06-06] VITALS (8 sets, daily range): BP systolic 85–107; BP diastolic 57–69
[2018-06-06] MEDS: VANCOMYCIN 0.75 GM in IV D5W 250 ML IV SCH ×3 (01:06→18:00)
[2018-06-06] MEDS: HYDROMORPHONE INJ 2 MG/ML DISP.SYRIN IV PRN ×7 (01:35→23:26)
[2018-06-06] MEDS: MEROPENEM 1 G in IV NS 0.9% 100 ML IV SCH ×3 (02:31→19:11)
[2018-06-06] MEDS: ALBUTEROL FS 2.5 MG/0.5 ML VIAL.NEB NEB SCH ×7 (02:37→23:01)
[2018-06-06] MEDS: LORAZEPAM INJ 2 MG/ML VIAL IV PRN ×4 (02:38→23:33)
[2018-06-06 06:48] LABS: BASOPHILS # (AUTO) 0.1 /CMM (0.0-0.2); BASOPHILS % (AUTO) 0.5 % (0.0-2.0); EOSINOPHILS % (AUTO) 4.6 % (0.0-6.0); HEMATOCRIT 28 % (33-45); HEMOGLOBIN 8.7 g/dL (11.5-14.8); LYMPHOCYTES # (AUTO) 0.9 /CMM (0.8-4.8); LYMPHOCYTES % (AUTO) 6.4 % (20.0-44.0); MEAN CORPUSCULAR HGB CONC 31 g/dl (31.0-36.0); MEAN CORPUSCULAR VOLUME 83 fL (82-100); MONOCYTES # (AUTO) 0.9 /CMM (0.1-1.30); NEUTROPHILS # (AUTO) 11.9 /CMM (1.8-8.9); NEUTROPHILS % (AUTO) 82.5 % (43.0-81.0); PLATELET COUNT (AUTO) 739 /CMM (150-450); RED BLOOD CELL COUNT(AUTO) 3.37 MIL/uL (4.0-5.2); WHITE BLOOD COUNT (AUTO) 14.4 K/uL (4.3-11.0)
[2018-06-06 07:00] LABS: CREATININE 0.5 mg/dL (0.6-1.3); POTASSIUM 3.6 mmol/L (3.5-5.1)
--- NOTE | 2018-06-06 07:02 | NUR ---
RN NOTES PT IN STABLE CONDITION. ALL NEEDS ANTICIPATED. SAFETY MEASURES OBSERVED AT ALL TIMES. ENDORSED TO AM SHIFT RN FOR DESTINI
[2018-06-06] MEDS: hydrOXYzine 10 MG TABLET PO SCH ×3 (08:05→17:20)
[2018-06-06] MEDS: METOCLOPRAMIDE HCL 10 MG TABLET PO SCH ×3 (08:05→17:20)
[2018-06-06] MEDS: LEVETIRACETAM (250 MG) 250 MG TABLET PO SCH ×2 (08:05→17:20)
[2018-06-06] MEDS: FOLIC ACID 1 MG TABLET PO SCH (08:05)
[2018-06-06] MEDS: FERROUS SULFATE (325 MG) 325 MG/TAB TABLET PO SCH ×2 (08:05→17:20)
[2018-06-06] MEDS: ENSURE ENLIVE 237 ML LIQUID (VANILLA) PO SCH ×3 (08:08→17:00)
[2018-06-06] MEDS: PANTOPRAZOLE 40 MG VIAL IV SCH (08:09)
[2018-06-06] MEDS: MORPHINE SULFATE IR 15 MG TABLET PO SCH ×2 (08:09→17:20)
--- NOTE | 2018-06-06 08:15 | NUR ---
FLAKITA RN NOTE RECEIVED PATIENT LYING IN BED ON NRB @[address] ON TELE-MONITOR. A/O X 4, BREATHING EVEN, V/S STABLE. PT ANXIOUS AND REFUSING BIPAP. RT TO SEE PATIENT. L CHEST SEJAL CATH INTACT AND PATENT. SAFETY MEASURES IN PLACE, BED IN LOW LOCKED POSITION, CALL LIGHT WITHIN REACH.
[2018-06-06] MEDS: ONDANSETRON HCL/PF 4 MG/2 ML VIAL IVP PRN ×2 (10:00→23:33)
[2018-06-06] MEDS: HYDROCODONE/APAP 10/325MG 1 EA TABLET PO PRN (15:47)
--- NOTE | 2018-06-06 19:51 | NUR ---
FLAKITA RN OPENING NOTES RECEIVED REPORT FROM IZABEL RODRIGUEZ. PATIENT A/A/O X4, ABLE TO MAKE NEEDS KNOWN. BREATHING EVEN & UNLABORED W/ SOB ON EXERTION BUT SATING WELL @ 95% ON O2 @ 4LPM VIA NC. DENIES ANY SOB OR DIFFICULTY BREATHING. ON TELE W/ SINUS TACH, HR 136. NO CARDIAC DISTRESS NOTED. LEFT CHEST PORT-A-CATH INTACT & PATENT W/ DRESSING CDI. NO IVF @ THIS TIME. SAFETY MEASURES IN PLACE W/ SIDE RAILS UP & CALL LIGHT WITHIN REACH. ABLE TO AMBULATE INDEPENDENTLY BUT INSTRUCTED TO USE CALL LIGHT FOR ASSISTANCE. WILL CONTINUE TO MONITOR.
[2018-06-07] VITALS: BP_SYST 104; BP_SYST 90; BP_DIAS 62; BP_DIAS 63
[2018-06-07] MEDS: VANCOMYCIN 0.75 GM in IV D5W 250 ML IV SCH (02:00)
[2018-06-07] MEDS: MEROPENEM 1 G in IV NS 0.9% 100 ML IV SCH ×3 (02:28→17:26)
[2018-06-07] MEDS: HYDROMORPHONE INJ 2 MG/ML DISP.SYRIN IV PRN ×10 (02:28→23:02)
[2018-06-07] MEDS: ALBUTEROL FS 2.5 MG/0.5 ML VIAL.NEB NEB SCH ×6 (03:05→23:18)
[2018-06-07 04:00] VITALS: BP 97/66
[2018-06-07] MEDS: HYDROCODONE/APAP 10/325MG 1 EA TABLET PO PRN ×2 (04:11→14:42)
[2018-06-07] MEDS: LORAZEPAM INJ 2 MG/ML VIAL IV PRN ×3 (05:56→17:30)
[2018-06-07 07:28] LABS: CREATININE 0.6 mg/dL (0.6-1.3); POTASSIUM 3.8 mmol/L (3.5-5.1)
[2018-06-07] MEDS: ENSURE ENLIVE 237 ML LIQUID (VANILLA) PO SCH ×3 (07:58→16:41)
[2018-06-07] MEDS: PANTOPRAZOLE 40 MG VIAL IV SCH (07:59)
[2018-06-07 08:00] VITALS: BP_SYST 110; BP_DIAS 71; BP_DIAS 79
[2018-06-07] MEDS: LEVETIRACETAM (250 MG) 250 MG TABLET PO SCH ×2 (08:00→16:41)
[2018-06-07] MEDS: FERROUS SULFATE (325 MG) 325 MG/TAB TABLET PO SCH ×2 (08:01→16:41)
[2018-06-07] MEDS: FOLIC ACID 1 MG TABLET PO SCH (08:01)
[2018-06-07] MEDS: MORPHINE SULFATE IR 15 MG TABLET PO SCH ×2 (08:01→16:43)
[2018-06-07] MEDS: hydrOXYzine 10 MG TABLET PO SCH ×3 (08:01→16:41)
[2018-06-07] MEDS: METOCLOPRAMIDE HCL 10 MG TABLET PO SCH ×3 (08:10→16:45)
[2018-06-07] MEDS: ONDANSETRON HCL/PF 4 MG/2 ML VIAL IVP PRN ×2 (08:25→16:46)
[2018-06-07] MEDS: VANCOMYCIN 1 GM in IV D5W 250 ML IV SCH ×2 (11:25→23:01)
[2018-06-07 11:40] LABS: ABG BASE EXCESS 16.1 mmol/L; ABG OXYGEN SATURATION 89.6 % (92.0-98.5); ABG PH 7.415 (7.350-7.450); ABG PO2 60.4 mmHg (75.0-100.0); AaDO2 145.5 mmHg; COHb 0.3 % (0.5-1.5); MetHb 0.8 % (0.0-1.5); O2Hb 88.6 % (94.0-97.0); SITE, ABG Right Radial; VENT MODE, BG NC 5L
[2018-06-07 12:00] VITALS: BP 107/75
--- NOTE | 2018-06-07 12:00 | NUR ---
RN NOTE DR BOWMAN NOTIFIED ABOUT PAIN LEVEL OF PT AND PAIN MANAGEMENT. DILAUDID FREQUENCY IS ADJUSTED PER MD.
--- NOTE | 2018-06-07 14:00 | NUR ---
RT NOTE PT 1530 ALBUTEROL TX GIVEN EARLY AT PT REQUEST DUE TO FEELING SHORT OF BREATH. NO DISTRESS NOTED. PT AWAKE AND ALERT. HR 134 SP02 97% Addendum: 06/07/18 at 1402 by ZAN VO RT Amended: Links added.
[2018-06-07 16:00] VITALS: BP 99/65
[2018-06-07] MEDS: ACETAMINOPHEN 325 MG TABLET PO PRN (16:01)
--- NOTE | 2018-06-07 19:40 | NUR ---
PRODUCT SUPPORT SPECIALIST OPENING NOTES, RECEIVED PATIENT AWAKE A/O X4, ABLE TO VERBALIZE NEEDS, BREATHING EVEN & UNLABORED RESTING IN BED AT THIS TIME GETTING BREATHING TX, RT AT BED SIDE, WOTH O2 SAT LEVEL @ 95% ON O2 @ 5LPM VIA N, DENIES ANY SOB OR DIFFICULTY BREATHING. ON TELE SINUS TACH, HR HIGH 120S, LEFT CHEST PORT-A-CATH PATENT AND INTACT, SAFETY MEASURES IN PLACE W/ SIDE RAILS UP & CALL LIGHT WITHIN REACH, ABLE TO AMBULATE WITH ASSISTANCE, INSTRUCTED TO USE CALL LIGHT FOR ASSISTANCE. WILL CONTINUE TO MONITOR CLOSELY.
[2018-06-07 20:00] VITALS: BP 102/60
[2018-06-08] VITALS: BP 106/67
[2018-06-08] MEDS: HYDROMORPHONE INJ 2 MG/ML DISP.SYRIN IV PRN ×12 (00:58→23:15)
[2018-06-08] MEDS: HYDROCODONE/APAP 10/325MG 1 EA TABLET PO PRN ×4 (01:38→20:14)
[2018-06-08] MEDS: LORAZEPAM INJ 2 MG/ML VIAL IV PRN ×4 (01:39→22:16)
[2018-06-08] MEDS: MEROPENEM 1 G in IV NS 0.9% 100 ML IV SCH ×2 (01:47→10:18)
[2018-06-08] MEDS: ALBUTEROL FS 2.5 MG/0.5 ML VIAL.NEB NEB SCH ×6 (01:53→23:27)
--- NOTE | 2018-06-08 02:10 | NUR ---
RT PT GIVEN 0330 ALBUTEROL TX EARLY AT PT REQUEST DUE TO FEELING SHORT OF BREATH. NO DISTRESS NOTED AT THIS TIME. PT AWAKE AND ALERT. HR 130 SP02 96%
[2018-06-08 04:00] VITALS: BP 101/71
[2018-06-08] MEDS: ALBUTEROL FS 2.5 MG/3 ML VIAL.NEB NEB PRN (04:55)
--- NOTE | 2018-06-08 05:10 | NUR ---
RT PT GIVEN PRN ALBUTEROL TX PATIENT REQUESTED DUE TO FEELING SHORT OF BREATH. NO SIGNS OF DISTRESS AT THIS TIME. RN AWARE. HR 130 SP02 95%. WILL CONT TO MONITOR.
[2018-06-08 06:37] LABS: BASOPHILS # (AUTO) 0.1 /CMM (0.0-0.2); BASOPHILS % (AUTO) 0.5 % (0.0-2.0); EOSINOPHILS % (AUTO) 4.7 % (0.0-6.0); HEMATOCRIT 27 % (33-45); HEMOGLOBIN 8.7 g/dL (11.5-14.8); LYMPHOCYTES # (AUTO) 1.1 /CMM (0.8-4.8); LYMPHOCYTES % (AUTO) 6.4 % (20.0-44.0); MEAN CORPUSCULAR HGB CONC 32 g/dl (31.0-36.0); MEAN CORPUSCULAR VOLUME 84 fL (82-100); MONOCYTES # (AUTO) 0.8 /CMM (0.1-1.30); MONOCYTES % (AUTO) 4.8 % (2.0-12.0); NEUTROPHILS # (AUTO) 13.8 /CMM (1.8-8.9); NEUTROPHILS % (AUTO) 83.6 % (43.0-81.0); PLATELET COUNT (AUTO) 737 /CMM (150-450); RED BLOOD CELL COUNT(AUTO) 3.26 MIL/uL (4.0-5.2); WHITE BLOOD COUNT (AUTO) 16.5 K/uL (4.3-11.0)
--- NOTE | 2018-06-08 06:39 | NUR ---
BILLING AND INSURANCE COORDINATOR CLOSING NOTES, PATIENT AWAKE A/O X4, ABLE TO VERBALIZE NEEDS, WITH, SOMETIMES FORGETFUL, BREATHING EVEN & UNLABORED RESTING IN BED AT THIS TIME, WITH EPISODES DURING THE NIGH EVRY TIME SHE USES THE COMMODE, O2 @ 5LPM VIA NC SATING IN TH 93-96% USUALLY, ON TELE SINUS TACH, HR HIGH 120S-130S, LEFT CHEST PORT-A-CATH PATENT AND INTACT, SAFETY MEASURES IN PLACE W/ SIDE RAILS UP & CALL LIGHT WITHIN REACH, ON PAIN MANAGEMENT, , INSTRUCTED TO USE CALL LIGHT FOR ASSISTANCE. WILL ENDORSE CONT OF CARE TO ONCOMING NURSE.
[2018-06-08 06:47] LABS: CALCIUM, SERUM 9.2 mg/dL (8.5-10.1); CREATININE 0.6 mg/dL (0.6-1.3); POTASSIUM 3.9 mmol/L (3.5-5.1)
--- NOTE | 2018-06-08 07:00 | NUR ---
CRIMPER OPERATOR NOTES, WHEN ASKED PATIENT IF IT WAS OK TO TAKE PICTURE OF THE RIGHT BREAST SINCE IS FRIDAY AND IS PROTOCOL SKIN ISSUES TO TAKE PICS ON FRIDAY AND SHE REFUSED, AND SAID THAT SHE NEVER ALLOW ANYBODY TO TAKE PICTURES BEFORE, EXPLAINED RISKS AND BENEFITS X3, STILL REFUSED.
--- NOTE | 2018-06-08 07:33 | NUR ---
PARKING OFFICER OPENING NOTES RECEIVED BEDSIDE REPORT PATIENT ASLEEP AT THIS TIME. LABORED BREATHING NOTED ON 5 LTRS NASAL CANNULA NO C/O PAIN LAST DILAUDID GIVEN @0717 WILL MONITOR . HR IN 120"S ON TELE MONITOR. ALERT AND ORIENTED X4 WITH SOME FORGETFULNESS. SKIN INTACT ABLE TO AMBULATE IN ROM WITH BRP. GAOL FOR THE DAY IN PAIN CONTROL AND DECREASE SOB. SAFETY PRECAUTIONS IN PLACE BED IN LOW POSITION CALL LIGHT WITHIN REACH WILL CONT TO MONITOR
[2018-06-08 08:00] VITALS: BP_SYST 127; BP_SYST 129; BP_DIAS 73; BP_DIAS 98
[2018-06-08] MEDS: LEVETIRACETAM (250 MG) 250 MG TABLET PO SCH ×2 (08:18→16:17)
[2018-06-08] MEDS: METOCLOPRAMIDE HCL 10 MG TABLET PO SCH ×3 (08:19→16:16)
[2018-06-08] MEDS: MORPHINE SULFATE IR 15 MG TABLET PO SCH ×2 (08:19→16:16)
[2018-06-08] MEDS: FERROUS SULFATE (325 MG) 325 MG/TAB TABLET PO SCH ×2 (08:19→16:25)
[2018-06-08] MEDS: PANTOPRAZOLE 40 MG VIAL IV SCH (08:19)
[2018-06-08] MEDS: FOLIC ACID 1 MG TABLET PO SCH (08:19)
[2018-06-08] MEDS: hydrOXYzine 10 MG TABLET PO SCH ×3 (08:19→16:16)
[2018-06-08] MEDS: ENSURE ENLIVE 237 ML LIQUID (VANILLA) PO SCH ×3 (08:24→16:19)
[2018-06-08] MEDS: VANCOMYCIN 1 GM in IV D5W 250 ML IV SCH (11:18)
[2018-06-08 12:00] VITALS: BP 104/72
[2018-06-08] MEDS: ACETAMINOPHEN 325 MG TABLET PO PRN (12:11)
[2018-06-08] MEDS: ONDANSETRON HCL/PF 4 MG/2 ML VIAL IVP PRN ×2 (12:38→19:22)
[2018-06-08 16:00] VITALS: BP 153/84
--- NOTE | 2018-06-08 19:25 | NUR ---
EDGE BRUSHER OPENING NOTES BEDSIDE REPORTGIVEN TO NOC PATIENT AWAKE AND ALERT X4 AT THIS TIME. LABORED BREATHING NOTED ON 5 LTRS NASAL CANNULA NO C/O PAIN LAST DILAUDID GIVEN @1915 WILL ENDORSE TO NOC TO MONITOR . HR IN 120"S ON TELE MONITOR. CONSENT OBTAINED BUT NOT SIGNED FOR RIGHT PLEURAL CATH INSERTION PATIENT NPO AFTER MIDNIGHT CONTINUOUSLY ON THE LIGHT FOR PAIN MEDS EVEN WHEN EXPLAINED NOT DUE. SKIN INTACT ABLE TO AMBULATE IN ROM AND BEDSIDE COMMODE. SAFETY PRECAUTIONS IN PLACE BED IN LOW POSITION CALL LIGHT WITHIN REACH WILL CONT TO MONITOR
--- NOTE | 2018-06-08 19:30 | NUR ---
CHLORINE PLANT OPERATOR NOTE REPORT GIVEN BESIDE, PATIENT A/O X4 AT THIS TIME. LABORED BREATHING NOTED ON 5 LTRS NASAL CANNULA NO C/O PAIN/ DISTRESS.. HR IN 120'S ON TELE MONITOR. CONSENT OBTAINED AND SIGNED SIGNED FOR RIGHT PLEURAL CATH INSERTION PATIENT NPO AFTER MIDNIGHT CONTINUOUSLY ON THE LIGHT FOR PAIN MEDS EVEN WHEN EXPLAINED NOT DUE. PATIENT EDUCATED ON RESPIRATORY EFFECTS OF ATIVAN, PATIENT STILL REQUESTS IT AROUND THE CLOCK EVEN WHEN SLEEPING. SKIN INTACT ABLE TO AMBULATE IN ROM AND BEDSIDE COMMODE. SAFETY PRECAUTIONS IN PLACE BED IN LOW POSITION CALL LIGHT WITHIN REACH WILL CONT TO MONITOR
[2018-06-08 20:00] VITALS: BP 116/73
[2018-06-09] VITALS: BP 130/82
[2018-06-09] MEDS: ONDANSETRON HCL/PF 4 MG/2 ML VIAL IVP PRN ×4 (00:22→16:41)
[2018-06-09] MEDS: HYDROCODONE/APAP 10/325MG 1 EA TABLET PO PRN ×3 (00:22→19:34)
[2018-06-09] MEDS: HYDROMORPHONE INJ 2 MG/ML DISP.SYRIN IV PRN ×10 (01:09→22:25)
[2018-06-09] MEDS: ALBUTEROL FS 2.5 MG/0.5 ML VIAL.NEB NEB SCH ×3 (02:30→11:30)
[2018-06-09 04:00] VITALS: BP 109/68
[2018-06-09] MEDS: LORAZEPAM INJ 2 MG/ML VIAL IV PRN ×3 (04:01→18:09)
[2018-06-09] MEDS: ACETAMINOPHEN 325 MG TABLET PO PRN (05:34)
--- NOTE | 2018-06-09 07:10 | NUR ---
CATHEAD WORKER OPENING NOTES RECEIVED PT LYING ON BED.ALERT/ORIENTED X3 WITH FORGETFUL.ON O2 5L VIA NC,NO SOB AND ACUTE DISTRESS NOTED.ON TELE HR IS [address]CAN AMBULATE WITH MINIMAL SUPERVISION.NO PAIN NOTED FOR NOW.PORT A CATH PRESENT ON LEFT CHEST WALL,SITE IS CLEAN,DRY AND INTACT.ON NPO FOR THE PROCEDURE TODAY.SAFETY IS MAINTAINED AT ALL TIMES.BED IS IN LOW POSITION AND LOCKED.CALL LIGHT IS WITHIN REACH.WILL CONTINUE TO MONITOR THE PT CLOSELY.
--- NOTE | 2018-06-09 07:23 | NUR ---
HOUSE WORKER NOTE REPORT GIVEN TO AM SHIFT. PATIENT A/O 2/3 BUT FORGETFUL. PATIENT AT BASELINE ON BREATHING TREATMENT. PAIN ADDRESSED AND DILAUDID GIVEN Q 2 AROUND THE CLOCK. NORCO AND ZOFRAN Q 4 AROUND THE CLOCK, AND ATIVAN Q 6 AROUND THE CLOCK. ALL NEEDS ADDRESSED SAFETY MEASURES IN PLACE.
[2018-06-09 07:57] LABS: BASOPHILS # (AUTO) 0.1 /CMM (0.0-0.2); BASOPHILS % (AUTO) 0.6 % (0.0-2.0); EOSINOPHILS % (AUTO) 3.6 % (0.0-6.0); HEMATOCRIT 28 % (33-45); HEMOGLOBIN 8.5 g/dL (11.5-14.8); LYMPHOCYTES # (AUTO) 1.1 /CMM (0.8-4.8); LYMPHOCYTES % (AUTO) 6.3 % (20.0-44.0); MEAN CORPUSCULAR HGB CONC 30 g/dl (31.0-36.0); MEAN CORPUSCULAR VOLUME 83 fL (82-100); MONOCYTES % (AUTO) 5.7 % (2.0-12.0); NEUTROPHILS # (AUTO) 15.3 /CMM (1.8-8.9); NEUTROPHILS % (AUTO) 83.8 % (43.0-81.0); PLATELET COUNT (AUTO) 796 /CMM (150-450); RED BLOOD CELL COUNT(AUTO) 3.39 MIL/uL (4.0-5.2); WHITE BLOOD COUNT (AUTO) 18.2 K/uL (4.3-11.0)
[2018-06-09 08:00] VITALS: BP 105/74
[2018-06-09] MEDS: ENSURE ENLIVE 237 ML LIQUID (VANILLA) PO SCH ×3 (08:00→17:00)
[2018-06-09 08:14] LABS: CALCIUM, SERUM 9.2 mg/dL (8.5-10.1); CREATININE 0.8 mg/dL (0.6-1.3); POTASSIUM 4.6 mmol/L (3.5-5.1)
[2018-06-09] MEDS: PANTOPRAZOLE 40 MG VIAL IV SCH (08:33)
--- NOTE | 2018-06-09 09:30 | NUR ---
FIELD CASE MANAGER NOTES PT REFUSES TO DO THE PROCEDURE OF RIGHT PLEURAL CATH INSERTION TODAY SHE SAID"THE SCHEDULED PROCEDURE TIME IS 1200.IT IS TOO LATE FOR ME AND I CANNOT HOLD THE FOOD TILL THAT TIME.I NEED TO EAT NOW ITSELF.I AM HUNGRY.CALL THE DRAntonia AND RESCHEDULE IT".I VERIFIED ABOUT REFUSAL OF PROCEDURE X3,STILL REFUSED.CALLED OFFICE AND SPOKE WITH JOAO MARTINEZ AND SHE SAID PER THE PROCEDURE IS CANCELLED PT REFUSED AND WILL LET US KNOW THE RESCHEDULE DATE AND TIME.STOP NPO AND RESUME REGULAR DIET.NEW ORDERS NOTED AND CARRIED OUT.
[2018-06-09] MEDS: METOCLOPRAMIDE HCL 10 MG TABLET PO SCH ×3 (09:51→16:45)
[2018-06-09] MEDS: LEVETIRACETAM (250 MG) 250 MG TABLET PO SCH ×2 (09:51→16:45)
[2018-06-09] MEDS: FERROUS SULFATE (325 MG) 325 MG/TAB TABLET PO SCH ×2 (09:51→16:45)
[2018-06-09] MEDS: FOLIC ACID 1 MG TABLET PO SCH (09:51)
[2018-06-09] MEDS: hydrOXYzine 10 MG TABLET PO SCH ×3 (09:51→16:45)
[2018-06-09] MEDS: MORPHINE SULFATE IR 15 MG TABLET PO SCH ×2 (09:53→16:47)
--- NOTE | 2018-06-09 13:44 | NUR ---
DICTAPHONE TRANSCRIBER NOTES PT HR NOTED WITH <130.IV ATIVAN AND IV DILAUDID GIVEN BUT STILL HR IS HIGH.PT IS AWAKE AND ALERT. CALLED DR.SAM PEREIRA,ORDERED TO DECREASE ALBUTEROL TO 1.25MG Q4HRS.RT MADE AWARE.NEW ORDERS NOTED AND CARRIED OUT.
[2018-06-09 14:00] VITALS: BP 114/75
[2018-06-09] MEDS: ALBUTEROL HALF STRENGTH 1.25 MG/3 ML VIAL.NEB NEB SCH ×3 (15:34→23:09)
[2018-06-09 16:00] VITALS: BP 114/75
--- NOTE | 2018-06-09 18:55 | NUR ---
MS RN CLOSING NOTES PT IS LYING ON BED WITH NC O2 .PORT A CATH IS PRESENT ON LEFT CHEST WALL.SITE IS CLEAN,DRY AND INTACT.C/O GENERALIZED PAIN 8-9/10 ,STILL CONTINUE WITH IV PAIN MEDS AND HR IS >130,MADE AWARE.ENDORSED TO FOREIGN EXCHANGE STUDENT COORDINATOR RN FOR DESTINI.
[2018-06-09 20:00] VITALS: BP 102/72
--- NOTE | 2018-06-09 20:35 | NUR ---
RN OPENING NOTES RECEIVED REPORT FROM OLENA RODRIGUEZ. PATIENT A/A/O X4, ABLE TO MAKE NEEDS KNOWN. BREATHING EVEN & UNLABORED W/ SOB ON EXERTION BUT SATING WELL @ 98-99% ON O2 @ 8LPM VIA SIMPLE MASK. DENIES ANY SOB OR DIFFICULTY BREATHING. RADIAL PULSES PRESENT. LEFT CHEST WALL PORT-A-CATH INTACT & PATENT W/ DRESSING CDI. NO IVF @ THIS TIME. C/O GEN BODY PAIN W/ PAIN LEVEL 7/10, NORCO 10-325 GIVEN. SAFETY MEASURES IN PLACE W/ SIDE RAILS UP & CALL LIGHT WITHIN REACH. ABLE TO AMBULATE INDEPENDENTLY BUT INSTRUCTED TO USE CALL LIGHT FOR ASSISTANCE. WILL CONTINUE TO MONITOR.
[2018-06-10] MEDS: LORAZEPAM INJ 2 MG/ML VIAL IV PRN ×4 (00:29→17:48)
[2018-06-10] MEDS: HYDROMORPHONE INJ 2 MG/ML DISP.SYRIN IV PRN ×11 (00:44→23:35)
[2018-06-10] MEDS: HYDROCODONE/APAP 10/325MG 1 EA TABLET PO PRN ×5 (02:16→19:49)
[2018-06-10] MEDS: ALBUTEROL HALF STRENGTH 1.25 MG/3 ML VIAL.NEB NEB SCH ×7 (03:20→22:42)
[2018-06-10 04:00] VITALS: BP 111/71
[2018-06-10 07:26] LABS: BASOPHILS # (AUTO) 0.1 /CMM (0.0-0.2); BASOPHILS % (AUTO) 0.9 % (0.0-2.0); EOSINOPHILS % (AUTO) 4.3 % (0.0-6.0); HEMATOCRIT 29 % (33-45); HEMOGLOBIN 9.3 g/dL (11.5-14.8); LYMPHOCYTES # (AUTO) 0.8 /CMM (0.8-4.8); LYMPHOCYTES % (AUTO) 5.7 % (20.0-44.0); MEAN CORPUSCULAR HGB CONC 32 g/dl (31.0-36.0); MEAN CORPUSCULAR VOLUME 83 fL (82-100); MONOCYTES # (AUTO) 0.8 /CMM (0.1-1.30); MONOCYTES % (AUTO) 6.1 % (2.0-12.0); NEUTROPHILS # (AUTO) 11.4 /CMM (1.8-8.9); PLATELET COUNT (AUTO) 720 /CMM (150-450); RED BLOOD CELL COUNT(AUTO) 3.54 MIL/uL (4.0-5.2); WHITE BLOOD COUNT (AUTO) 13.7 K/uL (4.3-11.0)
--- NOTE | 2018-06-10 07:30 | NUR ---
MS RN AM NOTE PATIENT ALERT AND ORIENTED X4. OXYGEN VIA NASAL CANNULA, PORT A CATH PATENT AND INTACT, NO RESPIRATORY DISTRESS AT THIS TIME, PAIN MANAGED WITH CURRENT MEDICATION REGIMEN, SAFETY MEASURES IN PLACE WILL CONTINUE TO MONITOR.
[2018-06-10 07:36] LABS: CALCIUM, SERUM 9.7 mg/dL (8.5-10.1); CREATININE 0.6 mg/dL (0.6-1.3); MAGNESIUM 2.2 mg/dL (1.8-2.4); PHOSPHORUS 4.5 mg/dL (2.5-4.9); POTASSIUM 4.8 mmol/L (3.5-5.1)
[2018-06-10 08:00] VITALS: BP 108/71
[2018-06-10] MEDS: ENSURE ENLIVE 237 ML LIQUID (VANILLA) PO SCH ×3 (08:00→16:08)
[2018-06-10] MEDS: PANTOPRAZOLE 40 MG VIAL IV SCH (09:18)
[2018-06-10] MEDS: ERGOCALCIFEROL (VITAMIN D 2) 50,000 UNIT CAPSULE PO SCH (09:19)
[2018-06-10] MEDS: FOLIC ACID 1 MG TABLET PO SCH (09:20)
[2018-06-10] MEDS: LEVETIRACETAM (250 MG) 250 MG TABLET PO SCH ×2 (09:20→16:03)
[2018-06-10] MEDS: FERROUS SULFATE (325 MG) 325 MG/TAB TABLET PO SCH ×2 (09:20→16:03)
[2018-06-10] MEDS: METOCLOPRAMIDE HCL 10 MG TABLET PO SCH ×3 (09:21→16:02)
[2018-06-10] MEDS: hydrOXYzine 10 MG TABLET PO SCH ×3 (09:22→16:03)
[2018-06-10] MEDS: MORPHINE SULFATE IR 15 MG TABLET PO SCH ×2 (09:22→16:07)
[2018-06-10] MEDS: ONDANSETRON HCL/PF 4 MG/2 ML VIAL IVP PRN ×2 (11:31→21:19)
[2018-06-10 12:00] VITALS: BP_SYST 103; BP_SYST 115; BP_DIAS 61; BP_DIAS 68
--- NOTE | 2018-06-10 12:39 | NUR ---
RN NOTE GAVE DILAUDID 0900, DID NOT SCAN BARCODE, PHARMACY AWARE, GAVE MEDICATION ORDERED.
[2018-06-10 16:00] VITALS: BP 100/66
--- NOTE | 2018-06-10 18:34 | NUR ---
MS RN CLOSING NOTE PATIENT IN BED, AWAKE AND ALERT X4, AMBULATE WITH ASSISTANCE, NARCOTICS GIVEN ORDERED, PORT A CATH PATENT AND INTAKE NO S/S OF INFECTION, PATIENT REFUSED PLEUREX INSERTION YESTERDAY 06/11. MD WILL RESCHEDULE , NO DATE AT THIS TIME. BED IN LOW POSITION, SIDE RAILS UP SAFETY MEASURES IN PLACE, CONTINUE TO MONITOR.
[2018-06-10 20:00] VITALS: BP 99/64
--- NOTE | 2018-06-10 20:00 | NUR ---
RN OPENING NOTES RECEIVED REPORT FROM AM RN. PATIENT A/A/O X4, ABLE TO MAKE NEEDS KNOWN. BREATHING EVEN & UNLABORED W/ SOB ON EXERTION BUT SATING WELL @ 98% ON O2 @ 8LPM VIA SIMPLE MASK. RADIAL PULSES PRESENT. LEFT CHEST WALL PORT-A-CATH INTACT & PATENT W/ DRESSING CDI. NO IVF @ THIS TIME. C/O GEN BODY PAIN W/ PAIN LEVEL 7/10, PAIN MEDS WILL BE ADMINISTERED ACCORDINGLY. SAFETY MEASURES IN PLACE W/ SIDE RAILS UP & CALL LIGHT WITHIN REACH. ABLE TO AMBULATE INDEPENDENTLY BUT INSTRUCTED TO USE CALL LIGHT FOR ASSISTANCE. WILL CONTINUE TO MONITOR.
[2018-06-10] MEDS: IPRATROPIUM NEB FS 0.5 MG/2.5 ML AMPUL.NEB NEB PRN (22:42)
[2018-06-11] MEDS: HYDROCODONE/APAP 10/325MG 1 EA TABLET PO PRN ×4 (00:15→23:05)
[2018-06-11] MEDS: LORAZEPAM INJ 2 MG/ML VIAL IV PRN ×4 (00:56→19:39)
[2018-06-11] MEDS: HYDROMORPHONE INJ 2 MG/ML DISP.SYRIN IV PRN ×8 (01:45→22:45)
[2018-06-11 07:03] LABS: CALCIUM, SERUM 9.3 mg/dL (8.5-10.1); CREATININE 0.7 mg/dL (0.6-1.3); POTASSIUM 4.5 mmol/L (3.5-5.1)
[2018-06-11 07:04] LABS: BASOPHILS # (AUTO) 0.1 /CMM (0.0-0.2); BASOPHILS % (AUTO) 0.5 % (0.0-2.0); EOSINOPHILS % (AUTO) 5.6 % (0.0-6.0); HEMATOCRIT 26 % (33-45); HEMOGLOBIN 8.4 g/dL (11.5-14.8); LYMPHOCYTES # (AUTO) 0.8 /CMM (0.8-4.8); LYMPHOCYTES % (AUTO) 5.8 % (20.0-44.0); MEAN CORPUSCULAR HGB CONC 32 g/dl (31.0-36.0); MEAN CORPUSCULAR VOLUME 85 fL (82-100); MONOCYTES # (AUTO) 1.1 /CMM (0.1-1.30); MONOCYTES % (AUTO) 7.4 % (2.0-12.0); NEUTROPHILS # (AUTO) 11.6 /CMM (1.8-8.9); NEUTROPHILS % (AUTO) 80.7 % (43.0-81.0); PLATELET COUNT (AUTO) 762 /CMM (150-450); RED BLOOD CELL COUNT(AUTO) 3.12 MIL/uL (4.0-5.2); WHITE BLOOD COUNT (AUTO) 14.3 K/uL (4.3-11.0)
--- NOTE | 2018-06-11 07:15 | NUR ---
RN INITIAL NOTES: Rec'd pt awake on bed, anxious. Pt is on NC 4lpm & NRB mask at 15lpm, sating at 100% - health teaching done about this however pt is hesitant to listen & stating that she cannot breathe w/o either of it. Has LCW portacath w/ no s/sx of infection/infiltration noted. Safety precautions in place. Bed in locked & lowest pos. Call light placed w/in reach. Will cont to monitor & assess pt needs.
[2018-06-11 08:00] VITALS: BP 92/61
[2018-06-11] MEDS: MORPHINE SULFATE IR 15 MG TABLET PO SCH ×2 (08:03→16:13)
[2018-06-11] MEDS: FERROUS SULFATE (325 MG) 325 MG/TAB TABLET PO SCH ×2 (08:03→16:09)
[2018-06-11] MEDS: FOLIC ACID 1 MG TABLET PO SCH (08:03)
[2018-06-11] MEDS: hydrOXYzine 10 MG TABLET PO SCH ×3 (08:03→16:10)
[2018-06-11] MEDS: LEVETIRACETAM (250 MG) 250 MG TABLET PO SCH ×2 (08:04→16:10)
[2018-06-11] MEDS: METOCLOPRAMIDE HCL 10 MG TABLET PO SCH ×3 (08:04→16:10)
[2018-06-11] MEDS: PANTOPRAZOLE 40 MG VIAL IV SCH (08:04)
[2018-06-11] MEDS: ALBUTEROL HALF STRENGTH 1.25 MG/3 ML VIAL.NEB NEB SCH ×5 (08:06→23:48)
[2018-06-11] MEDS: ENSURE ENLIVE 237 ML LIQUID (VANILLA) PO SCH ×4 (08:07→21:26)
--- NOTE | 2018-06-11 08:33 | NUR ---
pt. found @ 15 lpm o2 flow via non rebreather, pt. refused to changed to other oxygen device. RN aware @ bedside. Addendum: 06/11/18 at 0836 by PALMA METZGER RT Amended: Links added.
--- NOTE | 2018-06-11 09:00 | NUR ---
Pt seen & examined by Dr. Fernando w/ orders made & carried out. Consent signed by pt for US Guided Thoracentesis of R Lung. Spoke w/ Sima, US dept. Dr. Fernando agreed to order PT/INR & PTT.
[2018-06-11] MEDS ORDERED: LIDOCAINE 1% INJ 50 ML MDV IJ ONE (09:23)
--- NOTE | 2018-06-11 14:12 | NUR ---
S/P R sided thoracentesis done by Dr. Nair, 1L fluid out. Pt tolerated the procedure well. CXR STAT ordered post procedure.
--- NOTE | 2018-06-11 15:22 | NUR ---
Pt c/o so much pain s/p thoracentesis procedure. PRN pain meds (Dilaudid & Benson) are not yet due. Dr. Grajeda made aware & asked for additional pain meds if it's okay. Per , no.
[2018-06-11 16:00] VITALS: BP 125/71
--- NOTE | 2018-06-11 16:27 | NUR ---
Report given to Amanda RODRIGUEZ for DESTINI.
--- NOTE | 2018-06-11 18:00 | NUR ---
RN CLOSING NOTE PATIENT IN BED, ALERT AND ORIENTED X4. PORT A CATH PATENT AND FLUSHING WELL. BLOOD RETURN PRESENT. BED IN LOW POSITION, SAFETY MEASURES IN PLACE, CALL LIGHT WITHIN REACH, THORACENTESIS DONE 1 LITER REMOVED XRAY. CONTINUE TO MONITOR PATIENT
--- NOTE | 2018-06-11 20:00 | NUR ---
SOAP CHIPPER INITIAL NOTE RECEIVED REPORT FROM AM RN. PATIENT A/A/O X4, ABLE TO MAKE NEEDS KNOWN. BREATHING EVEN & UNLABORED W/ SOB ON EXERTION BUT SATING WELL @ 98% ON O2 @ 8LPM VIA SIMPLE MASK. RADIAL PULSES PRESENT. LEFT CHEST WALL PORT-A-CATH INTACT & PATENT W/ DRESSING CDI. NO IVF @ THIS TIME. C/O GEN BODY PAIN W/ PAIN LEVEL 2/10, PAIN MEDS WILL BE ADMINISTERED ACCORDINGLY. SAFETY MEASURES IN PLACE W/ SIDE RAILS UP & CALL LIGHT WITHIN REACH. ABLE TO AMBULATE INDEPENDENTLY BUT INSTRUCTED TO USE CALL LIGHT FOR ASSISTANCE. WILL CONTINUE TO MONITOR.
[2018-06-11 20:15] VITALS: BP 108/74
[2018-06-12 00:18] VITALS: BP 99/76
[2018-06-12] MEDS: HYDROMORPHONE INJ 2 MG/ML DISP.SYRIN IV PRN ×9 (00:57→23:12)
[2018-06-12] MEDS: ALBUTEROL HALF STRENGTH 1.25 MG/3 ML VIAL.NEB NEB SCH ×7 (03:30→22:50)
[2018-06-12 04:00] VITALS: BP 114/90
[2018-06-12] MEDS: HYDROCODONE/APAP 10/325MG 1 EA TABLET PO PRN (05:20)
--- NOTE | 2018-06-12 06:31 | NUR ---
SENIOR RECRUITMENT CONSULTANT CLOSING NOTE ENDORSED PT AWAKE IN BED WITH CONTINUOS C/O CHRONIC PAIN, AROUND THE CLOCK PAIN MGMT ORDERED GIVEN Q2H, WITH NORCO. PT WITH EPISODE OF FORGETFULNESS, REPORTED TO CHARGE NURSE LORENZO THAT NO PAIN MEDICATION GIVEN THROUGH SHIFT, EVEN THOUGH MEDICATIONS HAVE BEEN GIVEN AND DOCUMENTED, WILL ENDORSE TO AM RN .
[2018-06-12 06:32] LABS: BASOPHILS # (AUTO) 0.1 /CMM (0.0-0.2); BASOPHILS % (AUTO) 0.7 % (0.0-2.0); EOSINOPHILS % (AUTO) 4.7 % (0.0-6.0); HEMATOCRIT 27 % (33-45); HEMOGLOBIN 8.4 g/dL (11.5-14.8); LYMPHOCYTES # (AUTO) 0.8 /CMM (0.8-4.8); LYMPHOCYTES % (AUTO) 6.1 % (20.0-44.0); MEAN CORPUSCULAR HGB CONC 32 g/dl (31.0-36.0); MEAN CORPUSCULAR VOLUME 84 fL (82-100); MONOCYTES % (AUTO) 7.5 % (2.0-12.0); NEUTROPHILS # (AUTO) 10.8 /CMM (1.8-8.9); PLATELET COUNT (AUTO) 707 /CMM (150-450); RED BLOOD CELL COUNT(AUTO) 3.17 MIL/uL (4.0-5.2); WHITE BLOOD COUNT (AUTO) 13.3 K/uL (4.3-11.0)
[2018-06-12 06:41] LABS: CALCIUM, SERUM 9.3 mg/dL (8.5-10.1); CREATININE 0.6 mg/dL (0.6-1.3); PHOSPHORUS 3.8 mg/dL (2.5-4.9); POTASSIUM 4.2 mmol/L (3.5-5.1)
--- NOTE | 2018-06-12 07:10 | NUR ---
INSULATION WORKER APPRENTICE OPENING NOTES RECEIVED PT LYING ON BED. AWAKE, ALERT, AND ORIENTED X4, ON O2 4L VIA NC AND MASK 8-10L, NO SOB AND ACUTE DISTRESS NOTED. ON TELE HR IS 100S WITH SINUS TACH. CAN AMBULATE WITH MINIMAL SUPERVISION. NO PAIN NOTED FOR NOW. PORT A CATH PRESENT ON LEFT CHEST WALL, SITE IS CLEAN, DRY AND INTACT. SAFETY IS MAINTAINED AT ALL TIMES. BED IS IN LOWEST POSITION AND LOCKED. CALL LIGHT WITHIN REACH. WILL CONTINUE TO MONITOR CLOSELY THROUGHOUT SHIFT.
[2018-06-12 08:00] VITALS: BP 101/63
[2018-06-12] MEDS: PANTOPRAZOLE 40 MG VIAL IV SCH (08:45)
[2018-06-12] MEDS: MORPHINE SULFATE IR 15 MG TABLET PO SCH ×2 (08:47→16:37)
[2018-06-12] MEDS: FOLIC ACID 1 MG TABLET PO SCH (08:47)
[2018-06-12] MEDS: FERROUS SULFATE (325 MG) 325 MG/TAB TABLET PO SCH ×2 (08:47→16:26)
[2018-06-12] MEDS: LEVETIRACETAM (250 MG) 250 MG TABLET PO SCH ×2 (08:48→16:26)
[2018-06-12] MEDS: hydrOXYzine 10 MG TABLET PO SCH ×3 (08:48→16:26)
[2018-06-12] MEDS: METOCLOPRAMIDE HCL 10 MG TABLET PO SCH ×3 (08:48→16:26)
[2018-06-12] MEDS: ENSURE ENLIVE 237 ML LIQUID (VANILLA) PO SCH ×4 (09:45→21:56)
[2018-06-12] MEDS: LORAZEPAM INJ 2 MG/ML VIAL IV PRN ×3 (10:15→23:12)
[2018-06-12] MEDS: IPRATROPIUM NEB FS 0.5 MG/2.5 ML AMPUL.NEB NEB PRN ×2 (10:54→13:22)
--- NOTE | 2018-06-12 11:21 | NUR ---
RN NOTE: MRSA NARE SWABBING WAS ORDERED FOR THE PATIENT DUE TO HOSPITAL PROTOCOL TO RE-SWAB ON THE 21ST DAY OF ADMISSION. MD ORDER, NOTED AND CARRIED OUT. PATIENT MADE AWARE.
[2018-06-12 12:00] VITALS: BP 93/61
[2018-06-12 16:00] VITALS: BP 103/66
--- NOTE | 2018-06-12 19:15 | NUR ---
FEATHER RENOVATOR CLOSING NOTES PT LYING ON BED. AWAKE, ALERT, AND ORIENTED X4, ON O2 4L VIA NC AND MASK 8-10L, NO SOB AND ACUTE DISTRESS NOTED. ON TELE HR IS 120S WITH SINUS TACH. CAN AMBULATE WITH MINIMAL SUPERVISION. NO PAIN NOTED FOR NOW. PORT A CATH PRESENT ON LEFT CHEST WALL, SITE IS CLEAN, DRY AND INTACT. ALL NEEDS MET. SAFETY WAS MAINTAINED AT ALL TIMES. BED IS IN LOWEST POSITION AND LOCKED. CALL LIGHT WITHIN REACH. ENDORSED TO INTERNATIONAL PROJECT MANAGER NURSE FOR CONTINUITY OF CARE.
[2018-06-12 20:00] VITALS: BP 105/73
[2018-06-12] MEDS: ONDANSETRON HCL/PF 4 MG/2 ML VIAL IVP PRN (20:49)
[2018-06-13] VITALS: BP 106/70
[2018-06-13] MEDS: HYDROCODONE/APAP 10/325MG 1 EA TABLET PO PRN ×2 (00:13→11:10)
[2018-06-13] MEDS: HYDROMORPHONE INJ 2 MG/ML DISP.SYRIN IV PRN ×11 (01:51→23:25)
[2018-06-13] MEDS: IPRATROPIUM NEB FS 0.5 MG/2.5 ML AMPUL.NEB NEB PRN (02:31)
[2018-06-13] MEDS: ALBUTEROL HALF STRENGTH 1.25 MG/3 ML VIAL.NEB NEB SCH ×6 (02:31→23:52)
[2018-06-13 04:00] VITALS: BP_SYST 101; BP_SYST 106; BP_DIAS 66; BP_DIAS 70
[2018-06-13] MEDS: LORAZEPAM INJ 2 MG/ML VIAL IV PRN ×3 (06:00→17:58)
--- NOTE | 2018-06-13 06:00 | NUR ---
rn notes NORCO 10-325 HAS BEEN RETURNED DUE TO PATIENTS' CHANGE OF MIND AND REFUSAL AT 05:53AM.
--- NOTE | 2018-06-13 07:00 | NUR ---
SEWING TECHNIQUES DEMONSTRATOR NOTES RECEIVED PT LYING ON BED. AWAKE, ALERT, AND ORIENTED X4, ON O2 2L VIA NC AND MASK 8L, NO SOB AND ACUTE DISTRESS NOTED. ON TELE HR IS 100'S WITH SINUS TACH. CAN AMBULATE WITH MINIMAL SUPERVISION. NO PAIN NOTED FOR NOW. PORT A CATH PRESENT ON LEFT CHEST WALL, SITE IS CLEAN, DRY AND INTACT. SAFETY IS MAINTAINED AT ALL TIMES. BED IS IN LOWEST POSITION AND LOCKED. CALL LIGHT WITHIN REACH. WILL CONTINUE TO MONITOR CLOSELY.
[2018-06-13 07:17] LABS: BASOPHILS # (AUTO) 0.1 /CMM (0.0-0.2); BASOPHILS % (AUTO) 1.1 % (0.0-2.0); EOSINOPHILS % (AUTO) 4.3 % (0.0-6.0); HEMATOCRIT 25 % (33-45); LYMPHOCYTES # (AUTO) 0.7 /CMM (0.8-4.8); LYMPHOCYTES % (AUTO) 6.1 % (20.0-44.0); MEAN CORPUSCULAR HGB CONC 32 g/dl (31.0-36.0); MEAN CORPUSCULAR VOLUME 83 fL (82-100); MONOCYTES # (AUTO) 1.1 /CMM (0.1-1.30); NEUTROPHILS # (AUTO) 9.7 /CMM (1.8-8.9); NEUTROPHILS % (AUTO) 79.5 % (43.0-81.0); PLATELET COUNT (AUTO) 655 /CMM (150-450); RED BLOOD CELL COUNT(AUTO) 3.02 MIL/uL (4.0-5.2); WHITE BLOOD COUNT (AUTO) 12.2 K/uL (4.3-11.0)
--- NOTE | 2018-06-13 07:30 | NUR ---
RECREATION COUNSELOR NOTES LAB REPORT OF CO2 42
[2018-06-13 07:34] LABS: CALCIUM, SERUM 9.1 mg/dL (8.5-10.1); CREATININE 0.5 mg/dL (0.6-1.3); MAGNESIUM 1.8 mg/dL (1.8-2.4); POTASSIUM 4.2 mmol/L (3.5-5.1)
[2018-06-13] MEDS: MORPHINE SULFATE IR 15 MG TABLET PO SCH ×2 (07:53→16:10)
[2018-06-13 08:00] VITALS: BP 98/62
[2018-06-13] MEDS: FOLIC ACID 1 MG TABLET PO SCH (08:29)
[2018-06-13] MEDS: LEVETIRACETAM (250 MG) 250 MG TABLET PO SCH ×2 (08:29→16:10)
[2018-06-13] MEDS: PANTOPRAZOLE 40 MG VIAL IV SCH (08:29)
[2018-06-13] MEDS: FERROUS SULFATE (325 MG) 325 MG/TAB TABLET PO SCH ×2 (08:30→16:10)
[2018-06-13] MEDS: METOCLOPRAMIDE HCL 10 MG TABLET PO SCH ×3 (08:30→16:10)
[2018-06-13] MEDS: hydrOXYzine 10 MG TABLET PO SCH ×3 (08:30→16:10)
[2018-06-13] MEDS: ENSURE ENLIVE 237 ML LIQUID (VANILLA) PO SCH ×4 (10:06→21:04)
[2018-06-13 12:00] VITALS: BP 98/63
[2018-06-13 16:00] VITALS: BP 95/60
--- NOTE | 2018-06-13 19:17 | NUR ---
PARK ATTENDANT NOTES REPORTED TO PM SHIFT FOR DESTINI. PT HAS BEEN GIVEN PAIN MEDS FOR PAIN MGMNT ATC. PT IS ON O2 AND 100% SAT. SAFETY PRECAUTIONS MAINTAINED. CALL LIGHT IN REACH. ALL NEEDS ATTENDED TO.
[2018-06-13 20:56] VITALS: BP 100/63
[2018-06-14] VITALS: BP 91/57
[2018-06-14] MEDS: LORAZEPAM INJ 2 MG/ML VIAL IV PRN ×4 (00:02→18:10)
[2018-06-14] MEDS: HYDROMORPHONE INJ 2 MG/ML DISP.SYRIN IV PRN ×10 (02:47→21:29)
[2018-06-14] MEDS: ALBUTEROL HALF STRENGTH 1.25 MG/3 ML VIAL.NEB NEB SCH ×6 (03:18→23:56)
[2018-06-14 04:00] VITALS: BP 106/66
[2018-06-14 06:12] LABS: BASOPHILS # (AUTO) 0.1 /CMM (0.0-0.2); BASOPHILS % (AUTO) 0.5 % (0.0-2.0); EOSINOPHILS % (AUTO) 4.5 % (0.0-6.0); HEMATOCRIT 25 % (33-45); HEMOGLOBIN 8.1 g/dL (11.5-14.8); LYMPHOCYTES # (AUTO) 0.7 /CMM (0.8-4.8); MEAN CORPUSCULAR HGB CONC 32 g/dl (31.0-36.0); MEAN CORPUSCULAR VOLUME 83 fL (82-100); MONOCYTES # (AUTO) 1.2 /CMM (0.1-1.30); MONOCYTES % (AUTO) 10.4 % (2.0-12.0); NEUTROPHILS # (AUTO) 9.3 /CMM (1.8-8.9); NEUTROPHILS % (AUTO) 78.6 % (43.0-81.0); PLATELET COUNT (AUTO) 650 /CMM (150-450); RED BLOOD CELL COUNT(AUTO) 3.02 MIL/uL (4.0-5.2); WHITE BLOOD COUNT (AUTO) 11.9 K/uL (4.3-11.0)
[2018-06-14 06:39] LABS: CALCIUM, SERUM 9.5 mg/dL (8.5-10.1); CREATININE 0.5 mg/dL (0.6-1.3); PHOSPHORUS 3.7 mg/dL (2.5-4.9); POTASSIUM 3.9 mmol/L (3.5-5.1)
--- NOTE | 2018-06-14 07:00 | NUR ---
RAG PRODUCTION WORKER OPENING NOTES RECEIVED PT IN BED, COMPLAINING OF PAIN 8/10 AND ANXIETY. PT IS ON 10L SIMPLE MASK AND 2L NC. PT IS AT 100% O2. SINUS TACH HR 120'S. PORTACATH C/D/I/P. PT IS A/OX4. SAFETY PRECAUTIONS IN PLACE. BED IN LOCKED/LOWEST POSITION. CALL LIGHT IN REACH.
[2018-06-14 08:00] VITALS: BP 107/69
[2018-06-14] MEDS: PANTOPRAZOLE 40 MG VIAL IV SCH (08:04)
[2018-06-14] MEDS: LEVETIRACETAM (250 MG) 250 MG TABLET PO SCH ×2 (08:04→16:21)
[2018-06-14] MEDS: METOCLOPRAMIDE HCL 10 MG TABLET PO SCH ×3 (08:05→16:21)
[2018-06-14] MEDS: FOLIC ACID 1 MG TABLET PO SCH (08:05)
[2018-06-14] MEDS: hydrOXYzine 10 MG TABLET PO SCH ×3 (08:05→16:21)
[2018-06-14] MEDS: FERROUS SULFATE (325 MG) 325 MG/TAB TABLET PO SCH ×2 (08:05→16:21)
[2018-06-14] MEDS: MORPHINE SULFATE IR 15 MG TABLET PO SCH ×2 (08:10→16:21)
[2018-06-14] MEDS: ENSURE ENLIVE 237 ML LIQUID (VANILLA) PO SCH ×4 (08:11→21:28)
[2018-06-14] MEDS: ONDANSETRON HCL/PF 4 MG/2 ML VIAL IVP PRN ×2 (09:10→20:35)
[2018-06-14 12:00] VITALS: BP 92/53
[2018-06-14 16:00] VITALS: BP_SYST 92; BP_SYST 97; BP_DIAS 53; BP_DIAS 62
--- NOTE | 2018-06-14 19:08 | NUR ---
RESEARCH DIETITIAN CLOSING NOTES PT ENDORSED TO PM SHIFT FOR DESTINI. PT RESTING IN BED, ST 125 ASLEEP. ON 10L O2 100% SAT. BREATHING LABORED WITH ACCESSORY MUSCLE USE. BED IN LOCKED/LOWEST POSITION. CALL LIGHT IN REACH. ALL NEEDS ATTENDED TO.
[2018-06-14 20:00] VITALS: BP 103/65
--- NOTE | 2018-06-14 20:00 | NUR ---
RN NOTES RECEIVED PT LYING ON BED. AWAKE, ALERT, AND ORIENTED X4, ON O2 2L VIA NC AND MASK 8L AND COMPLAINS OF SOB BUT NO ACUTE DISTRESS NOTED. ON TELE MONITOR WITH HR OF 120'S WITH SINUS TACH. CAN AMBULATE WITH MINIMAL SUPERVISION. COMPLAINS OF PAIN 7/10 AT THIS TIME. PORT A CATH PRESENT ON LEFT CHEST WALL, SITE IS CLEAN, DRY AND INTACT. SAFETY IS MAINTAINED AT ALL TIMES. BED IS IN LOWEST POSITION AND LOCKED. CALL LIGHT WITHIN REACH. WILL CONTINUE TO MONITOR CLOSELY.
[2018-06-14] MEDS: IPRATROPIUM NEB FS 0.5 MG/2.5 ML AMPUL.NEB NEB PRN (20:05)
--- NOTE | 2018-06-14 20:30 | NUR ---
RN NOTES PATIENT IS COMPLAINING OF NAUSEA AND HAS BEEN VOMITED 100ML AND ZOFRAN INJ. IV 40MG HAS BEEN ADMINISTERED. WILL CONTINUE TO MONITOR PATIENT CLOSELY.
--- NOTE | 2018-06-14 21:05 | NUR ---
RN NOTES PATIENTS' NAUSEA IMPROVED AND EMESIS CEASED AFTER ADMINISTRATION OF ZOFRAN 410MG IV. WILL CONTINUE TO MONITOR PATIENT.
[2018-06-15] VITALS: BP 99/65
[2018-06-15] MEDS: LORAZEPAM INJ 2 MG/ML VIAL IV PRN ×3 (00:36→18:53)
[2018-06-15] MEDS: HYDROMORPHONE INJ 2 MG/ML DISP.SYRIN IV PRN ×10 (00:37→22:05)
[2018-06-15] MEDS: ONDANSETRON HCL/PF 4 MG/2 ML VIAL IVP PRN ×3 (02:03→18:08)
[2018-06-15] MEDS: ALBUTEROL HALF STRENGTH 1.25 MG/3 ML VIAL.NEB NEB SCH ×7 (03:30→23:27)
[2018-06-15 04:00] VITALS: BP 105/70
[2018-06-15 06:15] LABS: BASOPHILS % (AUTO) 0.3 % (0.0-2.0); EOSINOPHILS % (AUTO) 4.2 % (0.0-6.0); HEMATOCRIT 25 % (33-45); HEMOGLOBIN 7.9 g/dL (11.5-14.8); LYMPHOCYTES # (AUTO) 0.9 /CMM (0.8-4.8); LYMPHOCYTES % (AUTO) 6.6 % (20.0-44.0); MEAN CORPUSCULAR HGB CONC 32 g/dl (31.0-36.0); MEAN CORPUSCULAR VOLUME 83 fL (82-100); MONOCYTES # (AUTO) 1.1 /CMM (0.1-1.30); MONOCYTES % (AUTO) 8.1 % (2.0-12.0); NEUTROPHILS # (AUTO) 10.5 /CMM (1.8-8.9); NEUTROPHILS % (AUTO) 80.8 % (43.0-81.0); PLATELET COUNT (AUTO) 724 /CMM (150-450); RED BLOOD CELL COUNT(AUTO) 2.99 MIL/uL (4.0-5.2)
[2018-06-15 06:28] LABS: CALCIUM, SERUM 9.1 mg/dL (8.5-10.1); CREATININE 0.6 mg/dL (0.6-1.3)
--- NOTE | 2018-06-15 07:10 | NUR ---
FRAME PULLEY MORTISING MACHINE OPERATOR OPENING NOTES RECEIVED PT LYING ON BED. AWAKE, ALERT, AND ORIENTED X4, ON O2 8L VIA NC AND MASK 10L, NO SOB AND ACUTE DISTRESS NOTED. ON TELE HR IS 120S WITH SINUS TACH. CAN AMBULATE WITH MINIMAL SUPERVISION. 5/10 PAIN NOTED. PORT A CATH PRESENT ON LEFT CHEST WALL, SITE IS CHECKED AND FLUSHED, CLEAN, DRY AND INTACT. BED IS IN LOWEST POSITION AND LOCKED. CALL LIGHT WITHIN REACH. WILL CONTINUE TO MONITOR THROUGHOUT SHIFT. Addendum: 06/15/18 at 0943 by VIKTORIYA REID RN CLARIFICATION PATIENT ON O2 2L VIA NC.
[2018-06-15 08:00] VITALS: BP 92/52
--- NOTE | 2018-06-15 08:12 | NUR ---
PROTOTYPE SEWER NOTES PATIENT IS COMPLAINING OF NAUSEA AND ZOFRAN IV 40MG HAS BEEN ADMINISTERED. WILL CONTINUE TO MONITOR PATIENT CLOSELY. Addendum: 06/15/18 at 0841 by VIKTORIYA REID RN CLARIFICATION ZOFRAN 4MG IVP HAS BEEN ADMINISTERED.
[2018-06-15] MEDS: FERROUS SULFATE (325 MG) 325 MG/TAB TABLET PO SCH ×2 (08:13→16:46)
[2018-06-15] MEDS: LEVETIRACETAM (250 MG) 250 MG TABLET PO SCH ×2 (08:14→16:46)
[2018-06-15] MEDS: FOLIC ACID 1 MG TABLET PO SCH (08:14)
[2018-06-15] MEDS: METOCLOPRAMIDE HCL 10 MG TABLET PO SCH ×3 (08:14→16:46)
[2018-06-15] MEDS: PANTOPRAZOLE 40 MG VIAL IV SCH (08:14)
[2018-06-15] MEDS: hydrOXYzine 10 MG TABLET PO SCH ×3 (08:14→16:46)
--- NOTE | 2018-06-15 09:05 | NUR ---
RN DISCHARGE NOTES REASSESSED PATIENT, NAUSEA IMPROVED AFTER ADMINISTRATION OF ZOFRAN 4MG IVP. WILL CONTINUE TO MONITOR PATIENT CLOSELY.
[2018-06-15] MEDS: MORPHINE SULFATE IR 15 MG TABLET PO SCH ×2 (09:30→16:46)
[2018-06-15] MEDS: ENSURE ENLIVE 237 ML LIQUID (VANILLA) PO SCH ×4 (09:45→21:08)
[2018-06-15 12:00] VITALS: BP 101/64
[2018-06-15 16:00] VITALS: BP_SYST 101; BP_DIAS 64; BP_DIAS 65
--- NOTE | 2018-06-15 19:15 | NUR ---
RN M/S NOTE PATIENT IS AOX4, RESTING WITH HOB ELEVATED, SPEECH CLEAR, ON 8L O2 VIA MASK, NO S/SX OF RESPIRATORY OR CARDIAC DISTRESS, ANXIOUS, ABLE TO VERBALIZE NEEDS, LETF PORT A CATH IV PATENT, FLUSHING WELL, DRESSING CLEAN AND DRY, SKIN KEPT CLEAN AND DRY, BED IN LOW LOCKED POSITION, CALL LIGHT WITHIN REACH, WILL CONTINUE TO MONITOR FOR ANY CHANGES IN CONDITION.
--- NOTE | 2018-06-15 19:19 | NUR ---
EMPLOYEE ADVISER OPENING NOTES PT LYING ON BED, SLEEPING. ON O2 2L VIA NC AND MASK 8L, NO SOB AND ACUTE DISTRESS NOTED. ON TELE HR IS 120S WITH SINUS TACH. CAN AMBULATE WITH MINIMAL SUPERVISION. NO PAIN NOTED AT THIS TIME. PORT A CATH PRESENT ON LEFT CHEST WALL, SITE IS CHECKED AND FLUSHED, CLEAN, DRY AND INTACT. ALL MEDICATIONS WERE GIVEN. ALL NEEDS MET. BED IS IN LOWEST POSITION AND LOCKED. CALL LIGHT WITHIN REACH. WILL ENDORSE TO PRINTING FILM STRIPPER NURSE FOR CONTINUITY OF CARE. Addendum: 06/15/18 at 1924 by VIKTORIYA REID RN CLARIFICATION EMPLOYEE ADVISER CLOSING NOTES
[2018-06-15 20:00] VITALS: BP 101/62
[2018-06-16] VITALS (8 sets, daily range): BP systolic 96–125; BP diastolic 53–76
[2018-06-16] MEDS: HYDROMORPHONE INJ 2 MG/ML DISP.SYRIN IV PRN ×7 (00:10→12:16)
[2018-06-16] MEDS: ONDANSETRON HCL/PF 4 MG/2 ML VIAL IVP PRN (02:02)
[2018-06-16] MEDS: ALBUTEROL HALF STRENGTH 1.25 MG/3 ML VIAL.NEB NEB SCH ×6 (04:25→23:58)
[2018-06-16] MEDS: LORAZEPAM INJ 2 MG/ML VIAL IV PRN ×3 (05:18→18:35)
[2018-06-16] MEDS: HYDROCODONE/APAP 10/325MG 1 EA TABLET PO PRN ×4 (05:19→22:50)
--- NOTE | 2018-06-16 07:45 | NUR ---
RN NOTES PATIENT A/OX4, C/O GENERALIZED PAIN, INFORMED PATIENT DILAUDID DOSE IS DUE AT 8:10AM. PATIENT'S O2 SAT SHOWS 97% AT 6LPM VIA MASK, BUT PATIENT IS CLAIMING SHE FEELS SOB, INSTRUCTED PATIENT TO RELAX IN BED, HOB ELEVATED TO 80-90 DEGREES. PATIENT IS DUE FOR HER BREATHING TREATMENT. KEPT PATIENT COMFORTABLE, NEEDS ATTENDED, CALL LIGHT WITHIN REACH, WILL CONTINUE TO MONITOR.
[2018-06-16] MEDS: PANTOPRAZOLE 40 MG VIAL IV SCH (08:06)
[2018-06-16] MEDS: METOCLOPRAMIDE HCL 10 MG TABLET PO SCH ×3 (08:07→16:01)
[2018-06-16] MEDS: ENSURE ENLIVE 237 ML LIQUID (VANILLA) PO SCH ×4 (08:07→20:46)
[2018-06-16] MEDS: LEVETIRACETAM (250 MG) 250 MG TABLET PO SCH ×2 (08:07→16:01)
[2018-06-16] MEDS: FOLIC ACID 1 MG TABLET PO SCH (08:07)
[2018-06-16] MEDS: hydrOXYzine 10 MG TABLET PO SCH ×3 (08:07→16:02)
[2018-06-16] MEDS: FERROUS SULFATE (325 MG) 325 MG/TAB TABLET PO SCH ×2 (08:07→16:02)
[2018-06-16 08:19] LABS: BASOPHILS # (AUTO) 0.1 /CMM (0.0-0.2); BASOPHILS % (AUTO) 0.5 % (0.0-2.0); EOSINOPHILS % (AUTO) 3.6 % (0.0-6.0); HEMATOCRIT 27 % (33-45); HEMOGLOBIN 8.3 g/dL (11.5-14.8); LYMPHOCYTES # (AUTO) 0.8 /CMM (0.8-4.8); LYMPHOCYTES % (AUTO) 6.3 % (20.0-44.0); MEAN CORPUSCULAR HGB CONC 31 g/dl (31.0-36.0); MEAN CORPUSCULAR VOLUME 84 fL (82-100); NEUTROPHILS # (AUTO) 10.4 /CMM (1.8-8.9); NEUTROPHILS % (AUTO) 81.6 % (43.0-81.0); PLATELET COUNT (AUTO) 730 /CMM (150-450); RED BLOOD CELL COUNT(AUTO) 3.17 MIL/uL (4.0-5.2); WHITE BLOOD COUNT (AUTO) 12.7 K/uL (4.3-11.0)
[2018-06-16 08:30] LABS: CALCIUM, SERUM 9.2 mg/dL (8.5-10.1); CREATININE 0.6 mg/dL (0.6-1.3); MAGNESIUM 1.7 mg/dL (1.8-2.4); PHOSPHORUS 3.8 mg/dL (2.5-4.9); POTASSIUM 3.6 mmol/L (3.5-5.1)
[2018-06-16] MEDS: MORPHINE SULFATE IR 15 MG TABLET PO SCH ×2 (09:26→16:02)
[2018-06-16] MEDS: Magnesium 1GM/D5W 100ML PREMIX 100 ML IV SCH ×2 (10:00→11:20)
[2018-06-16] MEDS ORDERED: HYDROMORPHONE 1 MG/1 ML DISP.SYRIN IV PRN (12:30)
--- NOTE | 2018-06-16 15:20 | NUR ---
RN NOTES PATIENT SEEN BY DR. WILSON PAIN MANAGEMENT, SPOKE WITH PATIENT, AND DISCUSSED PLAN OF CARE FOR PAIN MANAGEMENT. PATIENT AGREED.
[2018-06-16] MEDS: FENTANYL TD PATCH (12 MCG/HR) 12 MCG/HR PATCH.TD72 TD SCH (16:12)
[2018-06-16] MEDS: HYDROMORPHONE 1 MG/1 ML DISP.SYRIN IV PRN ×2 (16:47→20:40)
--- NOTE | 2018-06-16 18:06 | NUR ---
RN NOTES PATIENT IN STABLE CONDITION, ATTEMPTED TO TITRATE OXYGEN TO NASAL CANNULA ON 5-6LPM, BUT PATIENT WOULD FEEL ANXIOUS AND WILL ASK FOR THE SIMPLE MASK. PATIENT'S PAIN TOLERABLE AT THIS TIME. NEEDS ATTENDED AND MET, CALL LIGHT WITHINR EACH, WILL ENDORSE TO INSTALLATION COORDINATOR FOR DESTINI.
--- NOTE | 2018-06-16 20:00 | NUR ---
RN/TELE NOTES: RECEIVED PT. IN BED SITTING W/ HER LEGS ON THE SIDE CHAIR. ON TELE MONITOR W/ ST. W/ N/C AND FACE MASK AT 4 LPM SAT 97%. PATIENT A/OX4. PT. HAD DILAUDID, NORCO AND ATIVAN NEEDED BASIS. PT. IS CONSISTENT OF GETTING THE MEDICATION AROUND THE CLOCK. C/O GENERALIZED PAIN. HOB ELEVATED TO 80-90 DEGREES. PATIENT ALSO GET BREATHING TREATMENT. KEPT PATIENT COMFORTABLE, NEEDS ATTENDED, CALL LIGHT WITHIN REACH, WILL CONTINUE TO MONITOR.
[2018-06-16] MEDS: IPRATROPIUM NEB FS 0.5 MG/2.5 ML AMPUL.NEB NEB PRN (23:58)
[2018-06-17] VITALS (7 sets, daily range): BP systolic 93–114; BP diastolic 56–73
[2018-06-17] MEDS: HYDROMORPHONE 1 MG/1 ML DISP.SYRIN IV PRN ×6 (00:55→21:24)
[2018-06-17] MEDS: LORAZEPAM INJ 2 MG/ML VIAL IV PRN ×2 (02:04→22:26)
[2018-06-17] MEDS: ALBUTEROL HALF STRENGTH 1.25 MG/3 ML VIAL.NEB NEB SCH ×6 (03:38→22:57)
[2018-06-17] MEDS: HYDROCODONE/APAP 10/325MG 1 EA TABLET PO PRN ×6 (04:02→23:54)
[2018-06-17 06:19] LABS: BASOPHILS # (AUTO) 0.1 /CMM (0.0-0.2); BASOPHILS % (AUTO) 0.5 % (0.0-2.0); EOSINOPHILS % (AUTO) 3.7 % (0.0-6.0); HEMATOCRIT 25 % (33-45); HEMOGLOBIN 7.8 g/dL (11.5-14.8); LYMPHOCYTES % (AUTO) 7.5 % (20.0-44.0); MEAN CORPUSCULAR HGB CONC 31 g/dl (31.0-36.0); MEAN CORPUSCULAR VOLUME 83 fL (82-100); MONOCYTES # (AUTO) 1.5 /CMM (0.1-1.30); MONOCYTES % (AUTO) 11.1 % (2.0-12.0); NEUTROPHILS # (AUTO) 10.6 /CMM (1.8-8.9); NEUTROPHILS % (AUTO) 77.2 % (43.0-81.0); PLATELET COUNT (AUTO) 734 /CMM (150-450); WHITE BLOOD COUNT (AUTO) 13.7 K/uL (4.3-11.0)
[2018-06-17 06:47] LABS: CALCIUM, SERUM 9.4 mg/dL (8.5-10.1); CREATININE 0.6 mg/dL (0.6-1.3); MAGNESIUM 1.9 mg/dL (1.8-2.4); PHOSPHORUS 3.5 mg/dL (2.5-4.9); POTASSIUM 3.9 mmol/L (3.5-5.1)
--- NOTE | 2018-06-17 06:51 | NUR ---
RN/TELE NOTES: LAB ED CALLED AT 06:51 AM FOR CRITICAL OF CO2 OF 45. PER HUMAN RELATIONS TEACHER SURESH CRUZ INFORM DAY SHIFT. WILL INFORM DAY SHIFT NURSE TO F/U. CHARGE NURSE BRYAN IS AWARE.
--- NOTE | 2018-06-17 07:20 | NUR ---
report received from NOC RN, pt on bedside chair; remains on hi flow o2 (simple mask and NC); c/o persistent genealized pain, given instructions on effects of medications and sign and symptoms like SOB; dizziness to report to RN ; verbalized understanding
--- NOTE | 2018-06-17 07:34 | NUR ---
RN/TELE NOTES: REPORT GIVEN TO AM NURSE FOR DESTINI.
[2018-06-17] MEDS: ERGOCALCIFEROL (VITAMIN D 2) 50,000 UNIT CAPSULE PO SCH (08:06)
[2018-06-17] MEDS: PANTOPRAZOLE 40 MG VIAL IV SCH (08:06)
[2018-06-17] MEDS: FOLIC ACID 1 MG TABLET PO SCH (08:07)
[2018-06-17] MEDS: MORPHINE SULFATE IR 15 MG TABLET PO SCH ×2 (08:07→16:06)
[2018-06-17] MEDS: LEVETIRACETAM (250 MG) 250 MG TABLET PO SCH ×2 (08:08→16:02)
[2018-06-17] MEDS: METOCLOPRAMIDE HCL 10 MG TABLET PO SCH ×3 (08:08→16:08)
[2018-06-17] MEDS: FERROUS SULFATE (325 MG) 325 MG/TAB TABLET PO SCH ×2 (08:09→16:06)
[2018-06-17] MEDS: ENSURE ENLIVE 237 ML LIQUID (VANILLA) PO SCH ×4 (08:13→22:24)
[2018-06-17] MEDS: hydrOXYzine 10 MG TABLET PO SCH ×3 (09:06→16:02)
--- NOTE | 2018-06-17 18:43 | NUR ---
reminded of NPO status post midnight;
--- NOTE | 2018-06-17 19:06 | NUR ---
report given to Earnestine RODRIGUEZ
--- NOTE | 2018-06-17 20:07 | NUR ---
RN OPENING NOTES RECEIVED REPORT FROM AM RN. PATIENT A/A/O X4, ABLE TO MAKE NEEDS KNOWN. BREATHING EVEN & UNLABORED, SATING WELL @ 98-99% ON O2 @ 9LPM VIA SIMPLE MASK. DENIES ANY SOB OR DIFFICULTY BREATHING. ON TELE W/ SINUS TACH, HR 119. LEFT CHEST WALL PORT-A-CATH INTACT & PATENT W/ DRESSING CDI. NO IVF @ THIS TIME. C/O GEN BODY PAIN W/ PAIN LEVEL 6/10, NORCO 10-325 TO BE GIVEN. SAFETY MEASURES IN PLACE W/ SIDE RAILS UP & CALL LIGHT WITHIN REACH. ABLE TO AMBULATE INDEPENDENTLY BUT INSTRUCTED TO USE CALL LIGHT FOR ASSISTANCE. WILL CONTINUE TO MONITOR.
[2018-06-18] VITALS: BP 97/65
[2018-06-18] MEDS: HYDROMORPHONE 1 MG/1 ML DISP.SYRIN IV PRN ×6 (01:03→21:59)
[2018-06-18 04:00] VITALS: BP 96/60
[2018-06-18] MEDS: HYDROCODONE/APAP 10/325MG 1 EA TABLET PO PRN ×5 (04:03→23:21)
[2018-06-18] MEDS: ALBUTEROL HALF STRENGTH 1.25 MG/3 ML VIAL.NEB NEB SCH ×6 (04:42→22:58)
[2018-06-18] MEDS: LORAZEPAM INJ 2 MG/ML VIAL IV PRN ×3 (05:09→20:22)
[2018-06-18 06:20] LABS: BASOPHILS # (AUTO) 0.1 /CMM (0.0-0.2); BASOPHILS % (AUTO) 0.6 % (0.0-2.0); EOSINOPHILS % (AUTO) 4.7 % (0.0-6.0); HEMATOCRIT 25 % (33-45); HEMOGLOBIN 7.8 g/dL (11.5-14.8); LYMPHOCYTES % (AUTO) 7.7 % (20.0-44.0); MEAN CORPUSCULAR HGB CONC 31 g/dl (31.0-36.0); MEAN CORPUSCULAR VOLUME 83 fL (82-100); MONOCYTES # (AUTO) 1.5 /CMM (0.1-1.30); MONOCYTES % (AUTO) 12.5 % (2.0-12.0); NEUTROPHILS # (AUTO) 9.3 /CMM (1.8-8.9); NEUTROPHILS % (AUTO) 74.5 % (43.0-81.0); PLATELET COUNT (AUTO) 718 /CMM (150-450); RED BLOOD CELL COUNT(AUTO) 3.03 MIL/uL (4.0-5.2); WHITE BLOOD COUNT (AUTO) 12.4 K/uL (4.3-11.0)
[2018-06-18 06:27] LABS: CALCIUM, SERUM 9.7 mg/dL (8.5-10.1); CREATININE 0.6 mg/dL (0.6-1.3); POTASSIUM 3.7 mmol/L (3.5-5.1)
[2018-06-18] MEDS ORDERED: ANESTHESIA TRAY IN PYXIS 1 EA TRAY MC ONE (07:00)
[2018-06-18] MEDS ORDERED: MIDAZOLAM HCL 2 MG/2ML VIAL ONE (07:30)
[2018-06-18] MEDS ORDERED: FENTANYL PF 100MCG/2ML AMPUL ONE (07:30)
[2018-06-18] MEDS ORDERED: CLINDAMYCIN 900 MG/6 ML VIAL ONE (07:30)
--- NOTE | 2018-06-18 07:30 | NUR ---
EMPLOYMENT LAW ATTORNEY NOTES PATIENT LEFT FOR SURGERY FOR PLEURX DRAIN INSERTION.
[2018-06-18 08:00] VITALS: BP 116/73
[2018-06-18] MEDS: hydrOXYzine 10 MG TABLET PO SCH ×3 (08:50→16:12)
[2018-06-18] MEDS: METOCLOPRAMIDE HCL 10 MG TABLET PO SCH ×3 (08:50→16:12)
[2018-06-18] MEDS: FERROUS SULFATE (325 MG) 325 MG/TAB TABLET PO SCH ×2 (08:50→16:12)
[2018-06-18] MEDS: PANTOPRAZOLE 40 MG VIAL IV SCH (08:50)
[2018-06-18] MEDS: FOLIC ACID 1 MG TABLET PO SCH (08:50)
[2018-06-18] MEDS: LEVETIRACETAM (250 MG) 250 MG TABLET PO SCH ×2 (08:51→16:12)
[2018-06-18] MEDS: ENSURE ENLIVE 237 ML LIQUID (VANILLA) PO SCH ×4 (08:51→20:37)
[2018-06-18] MEDS: MORPHINE SULFATE IR 15 MG TABLET PO SCH ×2 (09:00→16:17)
--- NOTE | 2018-06-18 09:30 | NUR ---
FRUIT SHIPPER NOTES PATIENT BACK FROM SURGERY IN STABLE CONDITION. VSS. PLACED BACK ON SIMPLE MASK @ 9LPM AND SATING WELL @ 100%. DRESSING IN PLACE ON RIGHT SIDE FROM PLEURX DRAIN INSERTION. NO SIGNS OF REDNESS OR SWELLING NOTED AROUND SITE.
[2018-06-18 12:00] VITALS: BP 92/62
--- NOTE | 2018-06-18 15:34 | NUR ---
PRINTING GREY CLOTH TENDER NOTES CALLED DR BHATIA'S OFFICE (PAIN MANAGEMENT MD) REGARDING PT'S DILAUDID FREQUENCY. SPOKE TO AUTO ACCESSORIES INSTALLER & SHE WILL RELAY MESSAGE TO MD. AWAITING CALL BACK & WILL ENDORSE TO ONCOMING NURSE.
[2018-06-18 16:00] VITALS: BP_SYST 110; BP_SYST 130; BP_DIAS 55; BP_DIAS 87
[2018-06-18] MEDS: SILVER SULFADIAZINE CREAM 25 GM TUBE TP SCH ×2 (18:13→20:37)
--- NOTE | 2018-06-18 18:43 | NUR ---
RN NOTE.PT USING HEATING PAD. WHILE BREAKING THE BAG LIQUID FLASH. ON THE FLOOR AND RT HAND AND THROAT. PICTURE TAKEN. MD MEIER MADE AWARE. ORDERED SILVADINE CREAM. PICTURE TAKEN. PLACED IN THE CHART.
--- NOTE | 2018-06-18 19:04 | NUR ---
RN NOTE. PM CARE GIVEN. PT IS SLEEPING NOW. VITALS STABLE. PT IS LETHARGIC. DAUGHTER AT BED SIDE. NO ACUTE DISTRESS NOTED. IV LT HAND TKO RUNNING.
[2018-06-18 20:00] VITALS: BP 103/69
[2018-06-19] VITALS: BP 105/68
[2018-06-19] MEDS: HYDROMORPHONE 1 MG/1 ML DISP.SYRIN IV PRN ×6 (01:59→22:04)
[2018-06-19] MEDS: ALBUTEROL HALF STRENGTH 1.25 MG/3 ML VIAL.NEB NEB SCH ×6 (02:33→23:30)
[2018-06-19] MEDS: HYDROCODONE/APAP 10/325MG 1 EA TABLET PO PRN ×2 (03:44→20:37)
[2018-06-19 04:00] VITALS: BP 98/57
[2018-06-19 06:16] VITALS: BP 98/57
[2018-06-19 06:24] LABS: BASOPHILS # (AUTO) 0.1 /CMM (0.0-0.2); BASOPHILS % (AUTO) 0.6 % (0.0-2.0); EOSINOPHILS % (AUTO) 2.7 % (0.0-6.0); HEMATOCRIT 23 % (33-45); HEMOGLOBIN 7.3 g/dL (11.5-14.8); LYMPHOCYTES # (AUTO) 0.9 /CMM (0.8-4.8); LYMPHOCYTES % (AUTO) 7.5 % (20.0-44.0); MEAN CORPUSCULAR HGB CONC 32 g/dl (31.0-36.0); MEAN CORPUSCULAR VOLUME 84 fL (82-100); MONOCYTES # (AUTO) 1.3 /CMM (0.1-1.30); NEUTROPHILS # (AUTO) 9.9 /CMM (1.8-8.9); NEUTROPHILS % (AUTO) 79.2 % (43.0-81.0); PLATELET COUNT (AUTO) 656 /CMM (150-450); RED BLOOD CELL COUNT(AUTO) 2.71 MIL/uL (4.0-5.2); WHITE BLOOD COUNT (AUTO) 12.5 K/uL (4.3-11.0)
[2018-06-19 06:55] LABS: CALCIUM, SERUM 8.9 mg/dL (8.5-10.1); CREATININE 0.5 mg/dL (0.6-1.3); POTASSIUM 3.5 mmol/L (3.5-5.1)
--- NOTE | 2018-06-19 07:00 | NUR ---
FUNERAL PRE NEED CONSULTANT NOTES RECEIVED REPORT FROM PM SHIFT; PT UP SITTING IN CHAIR. ON 5L NC/5L SIMPLE MASK. O2 SAT 100%PT IS SINUS TACHY; 122HR. COMPLAINTS OF TENDERNESS AT PLEURX SITE. PAIN LEVEL 8 REPORTED. PT REPORTED TOLERABLE PAIN LEVEL OF 5. SLIGHT WHEEZING NOTED ON RIGHT LUNG. DRESSING AT PLEURX SITE C/D/I. PORTACATH ON LCW. PT IS STEADY WHILE AMULATING. BED IN LOCKED/LOWEST POSITION. CALL LIGHT IN REACH. WILL CONT TO MONITOR.
[2018-06-19 08:00] VITALS: BP 94/56
[2018-06-19] MEDS: FOLIC ACID 1 MG TABLET PO SCH (08:31)
[2018-06-19] MEDS: hydrOXYzine 10 MG TABLET PO SCH ×3 (08:32→16:13)
[2018-06-19] MEDS: FERROUS SULFATE (325 MG) 325 MG/TAB TABLET PO SCH ×2 (08:34→16:13)
[2018-06-19] MEDS: MORPHINE SULFATE IR 15 MG TABLET PO SCH ×2 (08:34→16:12)
[2018-06-19] MEDS: METOCLOPRAMIDE HCL 10 MG TABLET PO SCH ×3 (08:34→16:12)
[2018-06-19] MEDS: PANTOPRAZOLE 40 MG VIAL IV SCH (08:35)
[2018-06-19] MEDS: LEVETIRACETAM (250 MG) 250 MG TABLET PO SCH ×2 (08:35→16:13)
[2018-06-19] MEDS: LORAZEPAM INJ 2 MG/ML VIAL IV PRN ×3 (08:35→22:03)
[2018-06-19] MEDS: ENSURE ENLIVE 237 ML LIQUID (VANILLA) PO SCH ×4 (08:36→20:37)
[2018-06-19] MEDS: SILVER SULFADIAZINE CREAM 25 GM TUBE TP SCH ×2 (08:52→20:38)
--- NOTE | 2018-06-19 15:50 | NUR ---
MS RN NOTES ENDORSED PT TO MARYBEL RODRIGUEZ FOR DESTINI, PT NOT IN DISTRESS, NO SOB NOTED. ALL NEEDS ATTENDED. NO ACUTE CHANGES NOTED.
--- NOTE | 2018-06-19 15:51 | NUR ---
RECEIVED REPORT FROM MICHAEL SADLER AND CHECKED ON THE PT SITTING ON THE BSC .ALERT AND ORIENTED X4.WITH O2 AT 2L/MIN VIA NC AND O2 AT 8-10L/MASK WELL WITH O2 SAT AT 100%.DENIES ANY DISTRESS.PT IS ASKING FOR ATIVAN IV AND HER FENTANYL PATCH.CALL LIGHT PLACED WITHIN REACH.
[2018-06-19 16:00] VITALS: BP 117/76
[2018-06-19] MEDS: FENTANYL TD PATCH (12 MCG/HR) 12 MCG/HR PATCH.TD72 TD SCH (16:14)
--- NOTE | 2018-06-19 16:15 | NUR ---
scanned duragesic patch 12 mcg/h several times and it keeps sayimng invalid barcode.Administered the fentanyl patch as ordered
--- NOTE | 2018-06-19 18:51 | NUR ---
PT RESTING IN BED AND WAS SEEN BY DR THOMPSON WITH NEW ORDERS.DR WILSON STATED THAT WE CAN REMOVE THE OLD FENTANYL PATCH AND APPLY THE NEW ORDERED FENTANYL PATCH.WILL ENDORSE TO SAMPLE SELECTOR CARE.
--- NOTE | 2018-06-19 19:29 | NUR ---
CALLED DR WILSON TO CLARIFY THE ORDERED FENTANYL PATCH 25 MCG WHICH THE PHARMACIST STATED WAS SCHEDULED FOR JUN 22.DR WILSON STATED THAT ITS OK TO JUST ADMINISTER IT ON JUN 22.ENDORSED TO NIGHT NURSE.
[2018-06-19 20:00] VITALS: BP 109/61
[2018-06-20] MEDS: HYDROMORPHONE 1 MG/1 ML DISP.SYRIN IV PRN ×5 (01:57→19:48)
[2018-06-20] MEDS: ALBUTEROL HALF STRENGTH 1.25 MG/3 ML VIAL.NEB NEB SCH ×6 (03:30→23:30)
[2018-06-20 04:00] VITALS: BP 106/56
[2018-06-20] MEDS: LORAZEPAM INJ 2 MG/ML VIAL IV PRN ×3 (05:04→21:37)
--- NOTE | 2018-06-20 05:54 | NUR ---
RN CLOSING NOTE CONTINUOUS ON HIFLOW O2, SATURATING WELL, NO DISTRESS. PATIENT OBSERVED TO BE ANXIOUS. MEDICATED WITH PRN ATIVAN. PATIENT WITH INTERMITTENT PAIN ON HER RIGHT SIDED CHEST WITH S/P PLEURX INSERTION. MEDICATED WITH DILAUDID AND NORCO PRN FOR BREAKTHROUGH PAIN. ASSISTED WITH ADLS NEEDED. SAFETY AND COMFORT ENSURED. LEFT CHESTWALL PORT-A-CATH INTACT, FLUSHED WITH GOOD BLOOD RETURN, CLAMPLED. RIGHT ANTERIOR CHEST PLEURX INTACT, NO DRAINAGE NOTED, CLAMPED. DUE FOR PLEURX DRAIN IN AM, WILL ENDORSE ACCORDINGLY. Addendum: 06/20/18 at 0635 by CARLOS MANUEL VELÁSQUEZ RN PATIENT'S O2 TITRATED TO 8LPM VIA MASK, NO DISTRESS, SATURATING WELL AT 98-100%.
[2018-06-20 06:28] LABS: OCCULT BLOOD STOOL NEGATIVE (NEGATIVE)
--- NOTE | 2018-06-20 07:43 | NUR ---
MS/RN OPENING NOTE PATIENT IN BED NOTED ANXIOUS. NO SIGNS OF ACUTE DISTRESS. COMPLAIN OF PAIN RATED 8/10 TO RIGHT SIDE RIB AND ABDOMEN. WILL ADMINISTER PAIN MEDS AND ANXIETY MEDS NEEDED AND SCHEDULE. ALL NEEDS ATTENDED TO AT THIS TIME. CALL LIGHT WITHIN REACH. WILL CONTINUE TO MONITOR TO ENSURE SAFETY.
[2018-06-20 08:00] VITALS: BP 121/77
[2018-06-20] MEDS: METOCLOPRAMIDE HCL 10 MG TABLET PO SCH ×3 (08:41→16:27)
[2018-06-20] MEDS: FOLIC ACID 1 MG TABLET PO SCH (08:41)
[2018-06-20] MEDS: PANTOPRAZOLE 40 MG VIAL IV SCH (08:41)
[2018-06-20] MEDS: LEVETIRACETAM (250 MG) 250 MG TABLET PO SCH ×2 (08:41→16:28)
[2018-06-20] MEDS: MORPHINE SULFATE IR 15 MG TABLET PO SCH ×2 (08:42→16:27)
[2018-06-20] MEDS: hydrOXYzine 10 MG TABLET PO SCH ×3 (08:42→16:27)
[2018-06-20] MEDS: ENSURE ENLIVE 237 ML LIQUID (VANILLA) PO SCH ×4 (08:55→20:27)
[2018-06-20] MEDS: SILVER SULFADIAZINE CREAM 25 GM TUBE TP SCH ×2 (08:55→20:31)
--- NOTE | 2018-06-20 09:48 | NUR ---
MS/RN SPOKE WITH PHOTOVOLTAIC INSTALLATION TECHNICIAN BEV AND RELAYED PATIENT'S C/O UNABLE TO BREATHE AND NOTED ANXIOUS ELEVATED HR VITALS 121/77,122,98.6,18,100% ON 8LPM FACE MASK, AND PATIENT WANTS TO TALK TO PHOTOVOLTAIC INSTALLATION TECHNICIAN, PER BEV, "I WILL TALK TO HER AND ADJUST MEDICATIONS NEEDED."
[2018-06-20 12:00] VITALS: BP 133/65
--- NOTE | 2018-06-20 12:15 | NUR ---
MS/RN PLEURX DRAINED 250ML OUTPUT PLEURX CARE AND DRESSING CHANGE DONE. PATIENT TOLERATED WELL.
[2018-06-20 12:16] LABS: BASOPHILS % (AUTO) 0.3 % (0.0-2.0); EOSINOPHILS % (AUTO) 0.7 % (0.0-6.0); HEMATOCRIT 23 % (33-45); HEMOGLOBIN 7.5 g/dL (11.5-14.8); LYMPHOCYTES # (AUTO) 0.8 /CMM (0.8-4.8); LYMPHOCYTES % (AUTO) 4.9 % (20.0-44.0); MEAN CORPUSCULAR HGB CONC 32 g/dl (31.0-36.0); MEAN CORPUSCULAR VOLUME 83 fL (82-100); MONOCYTES # (AUTO) 1.7 /CMM (0.1-1.30); MONOCYTES % (AUTO) 10.6 % (2.0-12.0); NEUTROPHILS # (AUTO) 13.3 /CMM (1.8-8.9); NEUTROPHILS % (AUTO) 83.5 % (43.0-81.0); PLATELET COUNT (AUTO) 658 /CMM (150-450); RED BLOOD CELL COUNT(AUTO) 2.81 MIL/uL (4.0-5.2)
[2018-06-20] MEDS: HYDROCODONE/APAP 10/325MG 1 EA TABLET PO PRN ×2 (12:45→17:52)
[2018-06-20 12:48] LABS: CREATININE 0.5 mg/dL (0.6-1.3); MAGNESIUM 1.9 mg/dL (1.8-2.4); PHOSPHORUS 3.5 mg/dL (2.5-4.9); POTASSIUM 3.8 mmol/L (3.5-5.1)
[2018-06-20] MEDS: SOD FERRIC GLUC 125 MG in IV NS 0.9% 100 ML IV SCH (13:51)
[2018-06-20 16:00] VITALS: BP 109/62
--- NOTE | 2018-06-20 18:26 | NUR ---
MS/RN CLOSING NOTE PATIENT IN BED IN STABLE CONDITION. A/O X 3. ON OXYGEN 8LPM VIA FACE MASK TOLERATING WELL. NO SIGNS OF ACUTE DISTRESS. NO COMPLAIN OF PAIN OR DISCOMFORT. ALL NEEDS ATTENDED TO. CALL LIGHT WITHIN REACH. WILL ENDORSE TO NEXT SHIFT FOR CONTINUITY OF CARE.
--- NOTE | 2018-06-20 19:05 | NUR ---
RN MS OPENING NOTES RECEIVED PATIENT AWAKE ALERT AND ORIENTED X 4, ABLE TO MAKE NEEDS KNOWN, RESPIRATIONS EVEN AND UNLABORED ON MASK 8LITERS, SPO2 100%. NO RESPIRATORY DISTRESS PRESENT AT THIS TIME, COMMODE AT BEDSIDE AND OFFERED, FLUIDS OFFERED, LEFT PORT-A- CATH INTACT AND PATENT, DRESSING C/D/I. NO REDNESS, NO INFILTRATION, PLEURX SITE DRESSING IS INTACT, CLEAN AND DRY. ON CONTINUOUS O2 MONITORING, SAFETY PRECAUTIONS IN PLACE, LOW BED AND LOCKED, BED ALARM IN PLACE, CALL LIGHT KEPT WITHIN REACH, ORIENTED TO STAFF AND CALL LIGHT, ICE CHIPS PROVIDED REQUESTED , ALL NEEDS ATTENDED AT THIS TIME, WILL CONTINUE TO MONITOR AND ATTEND TO NEEDS, REMAINS COMFORTABLE AT THIS TIME.
--- NOTE | 2018-06-20 19:48 | NUR ---
RN MS NOTES PATIENT COMPLAINT OF PAIN TO RIGHT ABDOMEN AREA, 10/10 ACHING REQUESTING FOR PAIN MEDICATION DILAUDID, VS TAKEN WNL 101/60,133,18,98.5,100% PER PATIENT B/P TRENDS ON LOWER SIDE, DILAUDID PRN GIVEN ORDERED WILL CONTINUE TO MONITOR FOR EFFECTIVENESS.
[2018-06-20 20:00] VITALS: BP 101/60
--- NOTE | 2018-06-20 21:37 | NUR ---
RN MS NOTES PATIENT COMPLAINT OF FEELING ANXIOUS, REQUESTING FOR ANXIETY MEDICATION ATIVAN OFFERED , AGREED TO TAKE PRN ATIVAN GIVEN ORDERED 0.25ML/0.5MG GIVEN , REST WASTED AND VERIFIED WITH ANOTHER RN. WILL CONTINUE TO MONITOR FOR EFFECTIVENESS.
[2018-06-20 22:00] VITALS: BP 101/60
[2018-06-21] MEDS: HYDROMORPHONE 1 MG/1 ML DISP.SYRIN IV PRN ×6 (00:07→22:56)
--- NOTE | 2018-06-21 00:07 | NUR ---
RN MS NOTES PATIENT COMPLAINT OF PAIN TO RIGHT PLUERX SITE, STATES ITS ACHING, REQUESTING FOR PAIN MEDICATION DILAUDID, VS WNL 111/70,130,100%, 16. PRN DILAUDID GIVEN ORDERED WILL CONTINUE TO MONITOR EFFECTIVENESS, CALL LIGHT KEPT WITHIN REACH, LOW BED AND LOCKED, SAFETY PRECAUTIONS IN PLACE, BED ALARM IN PLACE.
[2018-06-21] MEDS: ALBUTEROL HALF STRENGTH 1.25 MG/3 ML VIAL.NEB NEB SCH ×6 (03:24→22:50)
[2018-06-21] MEDS: LORAZEPAM INJ 2 MG/ML VIAL IV PRN ×4 (03:41→22:09)
--- NOTE | 2018-06-21 03:41 | NUR ---
rn ms notes patient complaint of feeling anxious requesting for ativan prn ativan given ordered 0.25ml/0.5mg given 1.5mg wasted and verified with another rn safety precautions in place, bed alarm in place, call light kept within reach, all needs are attended
--- NOTE | 2018-06-21 05:16 | NUR ---
RN MS NOTES PATIENT COMPLAINT OF PAIN TO RIGHT PLEURX SITE, ACHY 12/12 REQUESTING FOR DILAUDID VS WNL 116/[id number],100%,18 PRN DILAUDID GIVEN ORDERED WILL CONTINUE TO MONITOR SAFETY PRECAUTIONS IN PLACE, CALL LIGHT KEPT WITHIN REACH
[2018-06-21 06:10] VITALS: BP 116/69
--- NOTE | 2018-06-21 06:48 | NUR ---
RN MS CLOSING NOTES PATIENT IN BED SLEEPING BUT EASILY AROUSABLE ON MASK 7L SPO2 100%, NO RESPIRATORY DISTRESS PRESENT, PATIENT APPEARS TO BE COMFORTABLE AT THIS TIME, DENIES ANY PAIN OR DISCOMFORT, COMMODE OFFERED THROUGHOUT SHIFT, FLUIDS OFFERED, WOUND CARE PROVIDED ORDERED, TOLERATED WELL, PORT-A-CATH INTACT AND PATENT, DRESSING REMAINS CLEAN, DRY AND INTACT, PLEURX DRESSING IS CLEAN, DRY AND INTACT, ALL NEEDS ATTENDED THROUGH OUT SHIFT NO CHANGES THROUGHOUT NIGHT, WILL CONTINUE TO MONITOR AND ENDORSE TO NEXT SHIFT, SAFETY PRECAUTIONS IN PLACE, LOW BED AND LOCKED, BED ALARM IN PLACE,
--- NOTE | 2018-06-21 07:40 | NUR ---
MS RN OPENING NOTES RECEIVED PT SITTING COMMODE W/ ICT SUPPORT AND TEST ENGINEERS AT BEDSIDE. PT IS A/O X4, AFEBRILE.PT IS CURRENTLY ON 8L VIA MASK, RESPIRATIONS ARE EVEN AND UNLABORED, NOT IN ANY ACUTE DISTRESS NOTED. PT C/O PAIN 12/12 TO RIGHT ABDOMEN, HOWEVER STATES SHE KNOWS SHES NOT DUE FOR PAIN MEDS YET AND CAN WAIT. DENIES ANY CHEST PAIN, N/V. L CHEST PORT-A-CATH INTACT, NO INFILTRATION NOTED. DRESSING KEPT CLEAN AND DRY. SAFETY MEASURES ARE IN PLACE. INSTRUCTED PT TO USE CALL LIGHT WHEN ASSISTANCE IS NEEDED, CALL LIGHT IS LEFT WITHIN REACH. WILL MONITOR THROUGHOUT SHIFT FOR CONTINUITY OF CARE.
[2018-06-21 08:00] VITALS: BP 113/76
[2018-06-21] MEDS: METOCLOPRAMIDE HCL 10 MG TABLET PO SCH ×3 (08:14→16:16)
[2018-06-21] MEDS: hydrOXYzine 10 MG TABLET PO SCH ×3 (08:14→16:16)
[2018-06-21] MEDS: PANTOPRAZOLE 40 MG VIAL IV SCH (08:14)
[2018-06-21] MEDS: LEVETIRACETAM (250 MG) 250 MG TABLET PO SCH ×2 (08:14→16:16)
[2018-06-21] MEDS: FOLIC ACID 1 MG TABLET PO SCH (08:14)
[2018-06-21] MEDS: ENSURE ENLIVE 237 ML LIQUID (VANILLA) PO SCH ×4 (08:14→21:35)
[2018-06-21] MEDS: MORPHINE SULFATE IR 15 MG TABLET PO SCH ×2 (08:15→16:17)
[2018-06-21] MEDS: SILVER SULFADIAZINE CREAM 25 GM TUBE TP SCH ×2 (08:15→21:36)
[2018-06-21] MEDS: ACETAMINOPHEN 325 MG TABLET PO PRN ×2 (08:28→14:29)
[2018-06-21] MEDS: SOD FERRIC GLUC 125 MG in IV NS 0.9% 100 ML IV SCH (13:00)
--- NOTE | 2018-06-21 13:31 | NUR ---
MS RN NOTES-- PT NEEDS MET AND ANTICIPATED. PT WANTS TO GO HOME, MD AWARE. WILL CONTINUE TO MONITOR.
[2018-06-21 16:00] VITALS: BP 107/70
--- NOTE | 2018-06-21 18:40 | NUR ---
MS RN CLOSING NOTES NEEDS MET AND RENDERED. PT IS A/O X3, AFEBRILE. RESPIRATIONS ARE EVEN AND UNLABORED, NOT IN ANY ACUTE DISTRESS NOTED. ON O2 AT 6L/MIN VIA MASK. DENIES ANY N/V. LEFT CHEST PORT-A-CATH. DRESSING KEPT CLEAN AND DRY. SAFETY MEASURES ARE IN PLACE. REMINDED PT TO USE CALL LIGHT WHEN ASSISTANCE IS NEEDED, CALL LIGHT IS LEFT WITHIN REACH. WILL ENDORSE TO NEXT SHIFT FOR CONTINUITY OF CARE.
[2018-06-21] MEDS: HYDROCODONE/APAP 10/325MG 1 EA TABLET PO PRN ×2 (19:50→23:59)
[2018-06-21 20:00] VITALS: BP 108/78
--- NOTE | 2018-06-21 20:00 | NUR ---
MS RN OPENING NOTES: RECEIVED PATIENT FROM DAY SHIFT WITH PORT-A-CATH ON LEFT CHEST AREA. WITH O2 INHALATION VIA FACE MASK ON 6LPM. PATIENT APPEARS ANXIOUS, HOWEVER BREATHING FINE AND NORMAL. PATIENT EXPLAINED REGARDING HER PAIN MEDICATIONS AND HER OTHER MEDS WELL TIME. WITH PLEURX DRAINING ON RIGHT AREA. TO CHANGE DRESSING EVERY OTHER DAY. MEDIOCATED PATIENT FOR PAIN NEEDED. ATTENDED TO ALL PATIENT'S NEEDS. PLACED CALL LIGHT WITHIN PATIENT' REACH. SAFETY AND FALL PRECAUTIONS OBSERVED. WILL CONTINUE TO MONITOR.
[2018-06-21] MEDS ORDERED: LEVOFLOXACIN (500MG) 500 MG TABLET PO SCH (21:30)
[2018-06-22] MEDS: HYDROMORPHONE 1 MG/1 ML DISP.SYRIN IV PRN ×5 (03:01→18:53)
[2018-06-22] MEDS: ALBUTEROL HALF STRENGTH 1.25 MG/3 ML VIAL.NEB NEB SCH ×4 (03:46→15:30)
[2018-06-22] MEDS: LORAZEPAM INJ 2 MG/ML VIAL IV PRN ×2 (04:22→10:45)
[2018-06-22] MEDS: ACETAMINOPHEN 325 MG TABLET PO PRN ×2 (05:08→18:19)
--- NOTE | 2018-06-22 07:30 | NUR ---
MS RN OPENING NOTE RECEIVED PT IN BED SLEEPING. BREATHING IS EVEN AND UNLABORED ON 6L VIA SIMPLE MASK. NO ACUTE DISTRESS NOTED AT THIS TIME. LEFT CHEST PORT A CATH IS WITHOUT SWELLING OR REDNESS. DRESSING ON RIGHT PLEURX IS CLEAN, DRY AND INTACT. ALL NEEDS ATTENDED TO. BED IS LOCKED AND IN LOWEST POSITION, SIDE RAILS UP X2, CALL LIGHT AND POSSESSIONS WITHIN REACH.
--- NOTE | 2018-06-22 07:45 | NUR ---
MS RN CLOSING NOTES: PATIENT IN THE ROOM, AWAKE, TEARFUL AND CRYING OF THE PAIN, PATIENT REMINDED OF THE MEDICATION DILAUDID 2MG GIVEN IV. PATIENT HAS THE TENDENCY TO FORGET. DRESSING ON THE RIGHT SIDE AREA S/P PLEURIX INSERTION IS CLEAN AND INTACT. PORT-A-CATH ON LEFT CHEST AREA IN PLACE AND FLUSHING WELL. ASSISTED PATIENT WITH HER EVERY NEEDS. WILL CONTINUE TO MONITOR. WILL ENDORSE PATIENT TO DAY SHIFT NURSE.
[2018-06-22 08:00] VITALS: BP 106/58
[2018-06-22] MEDS: MORPHINE SULFATE IR 15 MG TABLET PO SCH ×2 (08:37→16:32)
[2018-06-22] MEDS: FOLIC ACID 1 MG TABLET PO SCH (08:37)
[2018-06-22] MEDS: LEVETIRACETAM (250 MG) 250 MG TABLET PO SCH ×2 (08:37→16:32)
[2018-06-22] MEDS: PANTOPRAZOLE 40 MG VIAL IV SCH (08:37)
[2018-06-22] MEDS: SILVER SULFADIAZINE CREAM 25 GM TUBE TP SCH (08:38)
[2018-06-22] MEDS: METOCLOPRAMIDE HCL 10 MG TABLET PO SCH ×3 (08:38→16:32)
[2018-06-22] MEDS: ENSURE ENLIVE 237 ML LIQUID (VANILLA) PO SCH ×3 (08:38→16:32)
[2018-06-22] MEDS: hydrOXYzine 10 MG TABLET PO SCH ×3 (08:38→16:32)
[2018-06-22] MEDS: HYDROCODONE/APAP 10/325MG 1 EA TABLET PO PRN (12:29)
--- NOTE | 2018-06-22 12:30 | NUR ---
MS RN NOTE NORCO 10-325MG ADMINISTERED FOR GENERALIZED PAIN 01/12. BP: 133/64, HR: 135, SPO2: 97%
[2018-06-22] MEDS: SOD FERRIC GLUC 125 MG in IV NS 0.9% 100 ML IV SCH (14:54)
[2018-06-22 16:00] VITALS: BP 123/80
[2018-06-22] MEDS ORDERED: FENTANYL TD PATCH (25 MCG/HR) 25 MCG/HR PATCH.TD72 TD SCH (16:00)
--- NOTE | 2018-06-22 16:45 | NUR ---
MS RN NOTE PLUREX DRAINAGE AND DRESSING CHANGE COMPLETED ORDERED UTILIZING STERILE TECHNIQUE. NO DRAINAGE AT THIS TIME.
--- NOTE | 2018-06-22 17:11 | NUR ---
MS RN NOTE OXYGEN TANK DELIVERED FROM [facility] BY [facility]. PLACED AT THE BEDSIDE. PER [facility] HE WILL DELIVER O2 MACHINE TO PT HOME IN THE NEXT 1-2 HOURS.
--- NOTE | 2018-06-22 19:36 | NUR ---
MS RN PATIENT DISCHARGED PT DISCHARGED HOME VIA AMBULANCE IN MEDICALLY STABLE CONDITION. PT IS ALERT AND ORIENTED X4, DENIES CHEST PAIN, SOB. BREATHING IS EVEN AND UNLABORED ON 5L NC. WOUND DOCUMENTATION COMPLETED PER PROTOCOL. ALL BELONGINGS ACCOUNTED FOR AND BELONGINGS LIST SIGNED AND PLACED IN CHART. LEFT CHEST WALL PORT A CATH DORANTES NEEDLE REMOVED WITH TIP INTACT. SITE CLEANSED WITH CHLORHEXIDINE AND CLEAN BAND AID PLACED OVER SITE WITH MINIMAL BLEEDING. PT PROVIDED WITH IV DILAUDID 1.5 MG PRIOR TO D/C FOR COMFORT PRIOR TO TRANSFER. OXYGEN TANK DELIVERED AND WITH PT FOR TRANSFER. PLEURX DRESSING KIT CHANGES AT THE BED WITH PT FOR TRANSFER. PLEURX DRAINED ORDERED AT 1645 WITH NO OUTPUT. REVIEWED DRAINAGE PROCESS WITH PATIENT UTILIZING TEACH BACK METHOD, PT VERBALIZED AND DEMONSTRATED UNDERSTANDING. DISCHARGE EDUCATION PROVIDED PER PROTOCOL. INFORMED PT OF DR CAMPOVERDE TO FOLLOW UP WITH PRIMARY CARE PROVIDER AND ONCOLOGIST WITHIN 2-3 DAYS AFTER D/C. PROVIDED PT WITH PRESCRIPTION FOR TORADOL FROM DR. MEIER. PROVIDED PT WITH CONTACT INFORMATION FOR COUNTS INCLUDE 234 BEDS AT THE [facility] AND INFORMED PT TO CALL AND FOLLOW UP TOMORROW IF SHE DOES NOT HEAR FROM AGENCY BY NOON. INFORMED PT TO CALL 911 OR RETURN TO THE NEAREST ER FOR CHEST PAIN, SOB, TEMPERATURE THAT DOES NOT RESOLVE WITH TYLENOL ADMINISTRATION, UNILATERAL CALF SWELLING, OR REOCCURRENCE OF INITIAL SYMPTOMS. PT VERBALIZED UNDERSTANDING. REPORT GIVEN TO AMBULANCE STAFF FOR TRANSFER OF CARE.
== END 2018-06-22 19:35 | disposition home health service (06) | DRG 720 ==
LOC: MEDSG1 20:05 → TELE1 20:24 → MEDSG1 05-26 11:05 → TELE1 06-01 04:34 → MEDSG1 06-01 11:58 → TELE1 06-03 01:30 → ICU 06-03 09:17 → TELE-TD 06-05 15:08 → TELE1 06-07 09:49 → MEDSG1 06-09 09:54 → TELE1 06-11 13:31 → MEDSG1 06-19 09:59 → MED 06-20 06:34
PROVIDERS: ADMIT Nurse Practitioner Acute Care
PROC: 0W993ZZ Drainage of Right Pleural Cavity, Percutaneous Approach (ICD-10-PCS; principal; 2018-05-25)
PROC: 0W993ZZ Drainage of Right Pleural Cavity, Percutaneous Approach (ICD-10-PCS; 2018-06-03)
PROC: 0W993ZZ Drainage of Right Pleural Cavity, Percutaneous Approach (ICD-10-PCS; 2018-06-11)
PROC: 0W9930Z Drainage of Right Pleural Cavity with Drainage Device, Percutaneous Approach (ICD-10-PCS; 2018-06-18)
DX: A41.9 Sepsis, unspecified organism (principal); J96.21 Acute and chronic respiratory failure with hypoxia; E43 Unspecified severe protein-calorie malnutrition; E87.3 Alkalosis; J15.9 Unspecified bacterial pneumonia; R64 Cachexia; C78.00 Secondary malignant neoplasm of unspecified lung; E83.42 Hypomagnesemia; J91.0 Malignant pleural effusion; C78.7 Secondary malignant neoplasm of liver and intrahepatic bile duct; C50.919 Malignant neoplasm of unspecified site of unspecified female breast; G40.909 Epilepsy, unspecified, not intractable, without status epilepticus; I11.0 Hypertensive heart disease with heart failure; E78.5 Hyperlipidemia, unspecified; F41.9 Anxiety disorder, unspecified; J96.22 Acute and chronic respiratory failure with hypercapnia; I25.10 Atherosclerotic heart disease of native coronary artery without angina pectoris; Z83.3 Family history of diabetes mellitus; Z91.19 Patient's noncompliance with other medical treatment and regimen; G89.4 Chronic pain syndrome; D50.9 Iron deficiency anemia, unspecified; Z79.899 Other long term (current) drug therapy; E88.09 Other disorders of plasma-protein metabolism, not elsewhere classified; D47.3 Essential (hemorrhagic) thrombocythemia; R74.0 Nonspecific elevation of levels of transaminase and lactic acid dehydrogenase [LDH]; C79.51 Secondary malignant neoplasm of bone; G89.3 Neoplasm related pain (acute) (chronic); I50.9 Heart failure, unspecified; Z79.891 Long term (current) use of opiate analgesic; Z68.1 Body mass index [BMI] 19.9 or less, adult
CPT/HCPCS: 36415; 36600; 71045-TC; 71250-TC; 76942-TC; 80048-TC; 80053-TC; 80061-TC; 80076-TC; 80202-TC; 81000-TC; 82272-TC; 82728-TC; 82803-TC; 83540-TC; 83615-TC; 83690-TC; 83735-TC; 84100-TC; 84443-TC; 84703-TC; 85025-TC; 85610-TC; 85730-TC; 86850-TC; 87040-TC; 87070-TC; 87075-TC; 87081-TC; 87086-TC; 87102-TC; 88305-TC; 88312-TC; 89051-TC; 93307-TC; 94760-TC; 94762-TC; 94799-TC; 97110-TC; 97530-TC; 99082-TC; A4216; A6253; A6402; A6403; A7526; C9113; G0378; J1170; J1644; J1940; J1956; J2060; J2185; J2250; J2405; J2704; J2916; J2997; J3010; J3370; J3475; J3490; J7030; J7050; J7060; J8597; Q0163; Q0177